=== PATIENT | female | born 1945 ===

== ENCOUNTER 2021-02-07 10:03 | Outpatient (REF) | payer MEDICARE, MEDICAID, SELFPAY ==
--- NOTE | ~2021-02-07 | XR_ITS ---
EXAMINATION: XR HIP, LEFT CLINICAL INFORMATION: Pain COMPARISON: None TECHNIQUE: Two views of the left hip. FINDINGS: Bones and soft tissues are normal. No fracture. Alignment is anatomic. Hip joint space is maintained. XR/XR hip LT min 2V IMPRESSION: Normal left hip.
== END 2021-02-07 10:04 | disposition home or self-care (01) ==
LOC: HO.XRAY 10:03
PROVIDERS: PCP Internal Medicine; Visit Provider Internal Medicine
DX: M25.552 Pain in left hip (principal)
CPT/HCPCS: 73502

== ENCOUNTER → 2021-03-27 15:48 | Outpatient (BNVA) | payer MEDICARE, MEDICAID, SELFPAY | PROVIDERS: PCP Internal Medicine; Visit Provider Surgery Vascular Surgery | DX: I83.11 Varicose veins of right lower extremity with inflammation (principal) | CPT/HCPCS: 99202 ==

== ENCOUNTER 2021-05-15 13:06 | Outpatient (REF) | payer MEDICARE, MEDICAID, SELFPAY ==
--- NOTE | ~2021-05-15 | US_ITS ---
EXAMINATION: BILATERAL LOWER EXTREMITY VENOUS ULTRASOUND (Reflux Exam) CLINICAL INDICATION: Varicose veins of unspecified lower extremity with inflammation. COMPARISON: None. TECHNIQUE: Color flow triplex imaging and compression Doppler was performed to evaluate both the deep and the superficial systems bilaterally. To evaluate the superficial system, the examination was performed in the upright position. Color-flow Doppler ultrasound and compression ultrasound were utilized. In addition, maneuvers were utilized to demonstrate reflux. FINDINGS: SUPERFICIAL ULTRASOUND WITH DOPPLER OF RIGHT LOWER EXTREMITY GREAT SAPHENOUS VEIN: Saphenofemoral junction: 0.3 cm Max diameter: 0.3 cm Min diameter: 0.1cm Reflux: There is segmental reflux above the knee measuring 0.6 cm. DUPLICATED MEDIAL GREAT SAPHENOUS VEIN: Max Diameter: None Imaged Reflux: NA DUPLICATED LATERAL GREAT SAPHENOUS VEIN: Diameter: None Imaged Reflux: NA SMALL SAPHENOUS VEIN: Proximal Calf: 0.2 cm Distal Calf: 0.1 cm Reflux: No evidence of reflux. VEIN OF GIACOMINI: None Imaged. PERFORATORS: Location: Mid thigh measuring 1 mm Reflux: None VARICOSITIES: Location: Proximal calf measuring 2 mm Reflux: 0.7 seconds of reflux DEEP VENOUS ULTRASOUND OF THE RIGHT LOWER EXTREMITY: Common Femoral Vein: Compressible, normal respiratory variation and augmented flow. Femoral vein: Compressible, normal color flow and augmentation. Popliteal Vein: Compressible, normal augmentation. Deep Reflux: There is no evidence of reflux in the deep system in either the common femoral vein or the popliteal vein. Goodman's Cyst: There is no evidence of a Goodman's cyst. SUPERFICIAL ULTRASOUND WITH DOPPLER OF LEFT LOWER EXTREMITY GREAT SAPHENOUS VEIN: Saphenofemoral junction: 0.3 cm Max diameter: 0.3 cm Min diameter: 0.1 cm Reflux: No evidence of reflux DUPLICATED MEDIAL GREAT SAPHENOUS VEIN: Max Diameter: None Imaged Reflux: NA DUPLICATED LATERAL GREAT SAPHENOUS VEIN: Diameter: None Imaged Reflux: NA SMALL SAPHENOUS VEIN: Proximal Calf: 0.1 cm Distal Calf: 0.1 cm Reflux: No evidence of reflux VEIN OF GIACOMINI: None Imaged. PERFORATORS: Location: None Imaged Reflux: NA VARICOSITIES: Location: None Imaged Reflux: NA DEEP VENOUS ULTRASOUND OF THE LEFT LOWER EXTREMITY: Common Femoral Vein: Compressible, normal respiratory variation and augmented flow. Femoral vein: Compressible, normal color flow and augmentation. Popliteal Vein: Compressible, normal augmentation. Deep Reflux: There is no evidence of reflux in the deep system in either the common femoral vein or the popliteal vein. Goodman's Cyst: There is no evidence of a Goodman's cyst. Additional: Prominent bilateral groin lymph nodes are identified. US/US venous duplex LE BI IMPRESSION: 1. Segmental reflux within the right great saphenous vein above the knee. 2. No evidence of left great saphenous venous insufficiency. 3. Refluxing, 2 mm varicosity within the right proximal calf. 4. No evidence of DVT or deep venous insufficiency. 5. Prominent bilateral inguinal lymph nodes.
== END 2021-05-15 13:07 | disposition home or self-care (01) ==
LOC: HO.US 13:06
PROVIDERS: Visit Provider Surgery Vascular Surgery
DX: I83.11 Varicose veins of right lower extremity with inflammation (principal)
CPT/HCPCS: 93970

== ENCOUNTER → 2021-06-05 15:05 | Outpatient (BNVA) | payer MEDICARE, MEDICAID, SELFPAY | PROVIDERS: PCP Internal Medicine; Visit Provider Surgery Vascular Surgery | DX: I83.11 Varicose veins of right lower extremity with inflammation (principal) | CPT/HCPCS: 99212 ==

== ENCOUNTER 2022-11-06 09:21 | Outpatient (REF) | payer MEDICARE, MEDICAID, SELFPAY ==
[2022-11-06 12:19] LABS: Estimated Average Glucose 189 mg/dL; Hemoglobin A1c % 8.2 % (<6.0)
== END 2022-11-06 09:22 | disposition home or self-care (01) ==
LOC: HO.HHCL 09:21
PROVIDERS: Visit Provider Registered Nurse
DX: E11.9 Type 2 diabetes mellitus without complications (principal)
CPT/HCPCS: 36415; 83036

== ENCOUNTER 2023-02-15 08:37 | Emergency (ER) | payer MEDICARE, MEDICAID, SELFPAY ==
--- NOTE | ~2023-02-15 | XR_ITS ---
EXAMINATION: XR CHEST CLINICAL INFORMATION: Cough. COMPARISON: Most recent chest radiographs dated 09/30/2017. TECHNIQUE: 2 views of the chest were obtained. FINDINGS: The lungs are clear. The cardiomediastinal silhouette is normal in size. There is no pleural effusion or pneumothorax. No acute osseous abnormality. XR/XR chest 2V IMPRESSION: No acute cardiopulmonary findings.
[2023-02-15 08:43] VITALS: BP 139/65; PULSE 112; RESP 22; TEMP 37.4; O2SAT 100; BMI 24.2
[2023-02-15 09:37] LABS: COVID-19 Test Negative (Negative); IDNOW Serial# 08D9AD1C; IDNOW Serial# BCCEAD1C; Influenza A Negative (Negative); Influenza B2 Negative (Negative)
--- NOTE | 2023-02-15 09:43 | ED.URI ---
HPI - URI/Sore Throat General Chief Complaint: Upper Respiratory Symptoms Stated Complaint: cold like symptoms Time Seen by Provider: 02/15/23 09:03 Source: patient and family Mode of arrival: ambulatory Limitations: language barrier ( [place]-speaking machine programmer utilized) History of Present Illness HPI Narrative: patient is a 77-year-old female who presents emergency department with her daughter for evaluation of symptoms. She reports 3 days with generalized weakness, chills, tactile fever, body aches. Intermittent dizziness described as feeling unsteady, productive cough, nausea and vomiting. She has had intermittent epigastric pain as well. Daughter states she has been unable to tolerate any oral intake for the past 2 days without vomiting. Denies genitourinary symptoms Related Data Home Medications Medication Instructions Recorded Confirmed amlodipine 5 mg tablet mg PO 03/27/21 atorvastatin 40 mg tablet mg PO 03/27/21 fluticasone propionate 50 intranasal 03/27/21 mcg/actuation nasal spray,suspension hydrochlorothiazide 25 mg tablet mg PO 03/27/21 insulin glargine 100 unit/mL (3 unit subcut 03/27/21 mL) subcutaneous pen (Lantus Solostar U-100 Insulin) lisinopril 30 mg tablet mg PO 03/27/21 metformin 1,000 mg tablet mg PO 03/27/21 omeprazole 20 mg capsule,delayed mg PO 03/27/21 release pen needle, diabetic 31 gauge x #1,200 ea 03/27/21 5/16 (UltiCare Pen Needle) Previous Rx's Medication Instructions Recorded melatonin 3 mg capsule 6 mg (2 x 3 mg) PO BEDTIME PRN 02/15/23 sleep #10 caps Allergies Allergy/AdvReac Type Severity Reaction Status Date / Time No Known Allergies Allergy Verified 02/15/23 08:45 [No Known Allergies*] Review of Systems Review of Systems: Yes all other systems are reviewed and are negative PMFSH Past Medical History Attestation statement: The following information was validated with the patient. Source: old records reviewed Medical History Varicose veins of bilateral lower extremities with pain Snoring Heart burn Varicose veins of legs Asymptomatic varicose veins of both lower extremities Right anterior knee pain Bilateral knee pain HTN (hypertension) Alcoholism Depression Diabetes mellitus type 2, uncomplicated Hyperlipemia Social History Social History Patient Tobacco Use Status: Current everyday Tobacco user Tobacco use type: Cigarette Cigarettes Per Day: 19 Advance Directives: No Advance Directives Information Provided: No Physical Exam Vital Signs: Vital Signs: Last Vital Signs Temp 99.1 F 02/15/23 10:29 Pulse 103 H 02/15/23 10:29 Resp 22 H 02/15/23 08:43 BP 139/65 02/15/23 08:43 Pulse Ox 100 02/15/23 08:43 O2 Del Method Room Air 02/15/23 08:43 BMI result Body Mass Index 24.2 Appearance: Alert.?Oriented to person, place and time. No acute distress.?Normal affect. Eyes: Pupils equal, round and reactive to light.? ENT: Pharynx normal.?? TM normal bilaterally Neck: Normal inspection.? Neck supple.?? no cervical lymphadenopathy CVS: Heart sounds normal. Normal heart rate and rhythm.? Pulses normal.?? Respiratory: No respiratory distress.? Lung sounds clear to auscultation bilaterally?? Abdomen: Soft and non-tender. Normoactive bowel sounds. ? Skin: Skin warm and dry.? Normal skin color.? Extremities: No lower extremity edema.? Neuro: Moves all extremities spontaneously. Sensation intact bilaterally. CN II-XII intact. No focal neuro deficits. Ambulates with normal steady gait. Course Reevaluation(s) Reevaluation #1: COVID- 19 and influenza testing are negative. CBC reveals a mild leukocytosis and normocytic anemia does not meet transfusion criteria. CMP is overall unremarkable. BNP not consistent with CHF. chest x-ray is without acute cardiopulmonary findings, no evidence of pneumonia. Urinalysis is without evidence of infection or microscopic hematuria. she received IV fluids in addition to Zofran and Tylenol __. Time: 11:16 Medications Administered Discontinued Medications Generic Name Dose Route Start Last Admin Trade Name Freq PRN Reason Stop Dose Admin Acetaminophen 975 mg 02/15/23 10:17 02/15/23 10:26 Acetaminophen 325 Mg Tablet PO 02/15/23 10:18 975 mg ONCE ONE Administration Sodium Chloride 1,000 mls @ 999 mls/hr 02/15/23 10:00 02/15/23 10:23 Ns IV 02/15/23 11:00 999 mls/hr .Q1H1M KENNETH Administration Ondansetron HCl 4 mg 02/15/23 09:53 02/15/23 10:21 Ondansetron Hcl 4 Mg/2 Ml Vial IVPUSH 02/15/23 09:54 4 mg ONCE ONE Administration Medical Decision Making Medical Decision Making [facility] Narrative: patient is a 77-year-old female with past medical history of hyperlipidemia, hypertension, type 2 diabetes who presents emergency department for evaluation of feeling generally unwell in addition to viral type symptoms with nausea vomiting and poor p.o. intake for the past 3 days. Overall she does appear fatigued, her abdominal examination is benign, LSCTA. She is able to speak clear full sentences. No hypoxia. She is mildly tachycardic at the time of my examination with pulse of 104 bpm, afebrile. Will obtain CBC to evaluate for leukocytosis/ anemia, CMP and lipase to evaluate for abnormal electrolytes /abnormal renal function/ abnormal hepatic/biliary function, Chest x-ray to evaluate for consolidation/ infiltrate/ mass/ pulmonary congestion and Urinalysis. Differential Diagnosis Differential Diagnoses: The differential diagnosis associated with the presentation includes ( Viral illness, UTI, cholecystitis, gastritis) Admission/Observation Consideration of admission/observation: Escalation of care including admission/observation considered ( see narrative above and course narrative for further detail) Lab Data [facility] Lab Attestation statement: I reviewed the patient's lab results. ( See course narrative) 02/15/23 10:13 02/15/23 10:13 Labs: Lab Results 02/15/23 02/15/23 Range/Units 09:10 10:13 WBC 13.5 H (4.8-10.8) X10*3/uL RBC 4.12 L (4.20-5.50) X10*6/uL Hgb 10.8 L (12.0-16.0) g/dl Hct 33.7 L (37.0-47.0) % MCV 81.8 (80.0-98.0) fL MCH 26.2 L (27.0-33.0) pg MCHC 32.0 (31.0-35.0) g/dl RDW 15.1 (11.0-16.0) % Plt Count 377 (160-400) X10*3/uL MPV 10.0 (9.4-12.3) fL Immature Gran % (Auto) 0.4 (0.0-0.4) % Neut % (Auto) 63.7 (45-73) % Lymph % (Auto) 23.4 (20-40) % [place] % (Auto) 11.4 H (2-11) % Eos % (Auto) 0.3 (0-4) % Baso % (Auto) 0.8 (0-2) % Lymph # (Auto) 3.2 (1.2-4.9) X10*3/uL [place] # (Auto) 1.5 H (0.1-1.2) X10*3/uL Eos # (Auto) 0.0 (0.0-0.4) X10*3/uL Baso # (Auto) 0.1 (0.0-0.2) X10*3/uL Abs Immat Gran (auto) 0.05 H (0.00-0.03) X10*3/uL Absolute Neuts (auto) 8.6 H (2.0-8.3) x10*3/uL Absolute Nucleated RBC 0.000 (0.0-0.012) X10*3/uL Nucleated RBC % (auto) 0.0 (0.0-0.2) /100WBC Smear Tech's Comments VERIFIED Sodium 140 (135-145) mmol/L Potassium 4.3 (3.3-5.1) mmol/L Chloride 106 (96-108) mmol/L Carbon Dioxide 26 (22-29) mmol/L Anion Gap 12 (12-20) BUN 18 H (9-16) mg/dL Creatinine 0.99 (0.5-1.4) mg/dL Estim Creat Clear Calc 36.9 Estimated GFR 55 Random Glucose 154 H (60-115) mg/dL Calcium 9.3 (8.4-10.2) mg/dL Total Bilirubin 0.3 (0.0-1.0) mg/dL AST 15 (5-31) U/L ALT 17 (0-31) U/L Alkaline Phosphatase 65 (39-117) U/L B-Natriuretic Peptide 107 H (<100) pg/mL Total Protein 7.1 (6.5-8.0) g/dL Albumin 3.8 (3.5-5.0) g/dL Lipase 13 (8-78) U/L Urine Color Yellow Urine Appearance Clear Urine pH 6.5 (5.0-9.0) Ur Specific [place] >= 1.030 H (1.005-1.025) Urine Protein Negative (Neg-Trace) mg/dL Urine Glucose (UA) >=1000 H (Negative) mg/dL Urine Ketones Negative (Negative) mg/dL Urine Blood Negative (Negative) Urine Nitrite Negative (Negative) Ur Leukocyte Esterase Negative (Negative) Urine RBC 0-2 (0-2) /HPF Urine WBC 0-5 (0-5) /HPF Ur Squamous Epith Cells 0-2 (0-2) /HPF Urine Bacteria None Seen (None Seen) Hyaline Casts 0-2 (0-2) /LPF COVID-19 (JONATHAN) Negative (Negative) COVID-19 Clin Com See Note Influenza Type A (ANITA) Negative (Negative) Influenza Type B (ANITA) Negative (Negative) Influenza A & B Note See Note Independent Interpretation I performed an independent interpretation of an: Plain X-Ray ( I personally interpreted chest x-ray and agree with radiologist impression.) Radiology Impression Discussion of test interpretation with radiology: I have reviewed the radiologist's reading. Radiologist Impression: XR/XR chest 2V IMPRESSION: No acute cardiopulmonary findings. Independent Historian Clinical information obtained from an independent historian. History obtained from or confirmed by: Other ( Daughter present who confirms history) External Record Review External record reviewed: Outpatient record Chronic Conditions Patient?s care impacted by: Diabetes Discharge Plan Discharge Clinical Impression: Upper respiratory infection Patient Disposition: Home, Self-Care Instructions: Upper Respiratory Infection (ED) Additional Instructions: urine does not show any sign of infection, blood work is overall normal. You can trial melatonin for sleep. Be sure to rest, stay well hydrated drinking plenty of fluids, eat small frequent meals. Tylenol/ibuprofen can be used as needed for fever/pain. Ejgv-anb-malegrl cold medications may be helpful as well for symptoms. Saline nasal spray, humidifier may be helpful for nasal congestion. You may return to the emergency department with any new or worsening symptoms or concerns. Follow-up with your primary care provider as needed. Should remain out of school/ work until symptoms have resolved and have been without a fever for 24 hours without the use of Tylenol or ibuprofen. Prescriptions: New melatonin 3 mg capsule 6 mg PO BEDTIME PRN (Reason: sleep) Qty: 10 0RF No Action (DME) pen needle, diabetic [UltiCare Pen Needle] 31 gauge x 5/16 needle See Rx Instructions .ROUTE .MEDSUPPLY Qty: 1200 Rx Instructions: As directed fluticasone propionate 50 mcg/actuation spray,suspension intranasal metformin 1,000 mg tablet PO hydrochlorothiazide 25 mg tablet PO omeprazole 20 mg capsule,delayed release(DR/EC) PO lisinopril 30 mg tablet PO atorvastatin 40 mg tablet PO amlodipine 5 mg tablet PO Lantus Solostar U-100 Insulin 100 unit/mL (3 mL) insulin pen subcut Referrals: Socorro Wilhelm, FILTERING MACHINE TENDER HELPER [Primary Care Provider] -
[2023-02-15 10:19] LABS: Basophils Absolute Auto 0.1 X10*3/uL (0.0-0.2); Basophils Percent Auto 0.8 % (0-2); Eosinophils Percent Auto 0.3 % (0-4); Hematocrit 33.7 % (37.0-47.0); Hemoglobin 10.8 g/dl (12.0-16.0); Imm Gran Abs Auto 0.05 X10*3/uL (0.00-0.03); Imm Gran Pct Auto 0.4 % (0.0-0.4); Lymphocytes Absolute Auto 3.2 X10*3/uL (1.2-4.9); Lymphocytes Percent Auto 23.4 % (20-40); Mean Corpuscular Hemoglobin 26.2 pg (27.0-33.0); Mean Corpuscular Volume 81.8 fL (80.0-98.0); Monocytes Absolute Auto 1.5 X10*3/uL (0.1-1.2); Monocytes Percent Auto 11.4 % (2-11); Neutrophils Absolute Auto 8.6 x10*3/uL (2.0-8.3); Neutrophils Percent Auto 63.7 % (45-73); Platelet Count 377 X10*3/uL (160-400); Red Blood Count 4.12 X10*6/uL (4.20-5.50); Red Cell Distribution Width 15.1 % (11.0-16.0); SCAN SMEAR FLAG 1; White Blood Count 13.5 X10*3/uL (4.8-10.8)
[2023-02-15 10:20] LABS: MANUAL DIFF FLAG SCAN
[2023-02-15 10:21] LABS: Appearance Urine Clear; Color Urine Yellow; Glucose Urine UA >=1000 mg/dL (Negative); Leukocyte Esterase Urine Negative (Negative); Nitrite Urine Negative (Negative); PH 6.5 (5.0-9.0); Specific Gravity - Urine >= 1.030 (1.005-1.025); UMIC TRIGGER UACC YES; Urine Blood Negative (Negative); Urine Ketones Negative (Negative); Urine Protein Negative (Neg-Trace)
[2023-02-15] MEDS: ondansetron HCL 4 MG/2 ML VIAL IVPUSH (10:21)
[2023-02-15] MEDS: 0.9 % Sodium Chloride 1,000 ML 999 ML IV (10:23)
[2023-02-15 10:26] LABS: Bacteria Urine None Seen (None Seen); Hyaline Casts Urine 0-2 /LPF (0-2); RBC Urine 0-2 /HPF (0-2); Squamous Epithelial Cell Urine 0-2 /HPF (0-2); WBC Urine 0-5 /HPF (0-5)
[2023-02-15] MEDS: Acetaminophen 325 MG TABLET 975 MG PO (10:26)
[2023-02-15 10:29] VITALS: PULSE 103; TEMP 37.3
[2023-02-15 10:39] LABS: SLIDE REVIEW VERIFIED
[2023-02-15 10:40] LABS: Alanine Aminotransferase 17 U/L (0-31); Albumin Level 3.8 g/dL (3.5-5.0); Alkaline Phosphatase 65 U/L (39-117); Anion Gap 12 (12-20); Aspartate Amino Transferase 15 U/L (5-31); Bilirubin Total 0.3 mg/dL (0.0-1.0); Blood Urea Nitrogen 18 mg/dL (9-16); Calcium 9.3 mg/dL (8.4-10.2); Carbon Dioxide 26 mmol/L (22-29); Chloride 106 mmol/L (96-108); Creatinine Clr Calc Pharmacy 36.9; Estimated Glomerular Filt Rate 55; Glucose Random 154 mg/dL (60-115); Lipase 13 U/L (8-78); Potassium 4.3 mmol/L (3.3-5.1); Sodium 140 mmol/L (135-145); Total Protein 7.1 g/dL (6.5-8.0)
[2023-02-15 10:46] LABS: B Type Natriuretic Peptide 107 pg/mL (<100)
[2023-02-15 11:36] VITALS: BP 100/58; PULSE 75; RESP 16; TEMP 37.3; O2SAT 98
== END 2023-02-15 11:38 | disposition home or self-care (01) ==
PROVIDERS: Nurse Practitioner Family; Emergency Provider Emergency Medicine; PCP Registered Nurse
DX: J06.9 Acute upper respiratory infection, unspecified (principal); R05.9 Cough, unspecified; R06.02 Shortness of breath; Z79.899 Other long term (current) drug therapy; Z11.52 Encounter for screening for COVID-19; Z20.822 Contact with and (suspected) exposure to COVID-19
CPT/HCPCS: 36415; 71046; 80053; 81001; 83690; 83880; 85025; 87502; 87635; 96361; 96374; 99284; 99285; J2405

== ENCOUNTER 2023-03-23 20:00 | Emergency (ER) | payer MEDICARE, SELFPAY ==
[2023-03-23 20:14] VITALS: BP 126/60; PULSE 109; RESP 18; TEMP 36.4; O2SAT 99; BMI 21.4
== END 2023-03-23 23:02 | disposition left against medical advice (07) ==
PROVIDERS: Emergency Provider Emergency Medicine
DX: R11.2 Nausea with vomiting, unspecified (principal)
CPT/HCPCS: 99281

== ENCOUNTER 2023-04-21 11:15 | Outpatient (REF) | payer MEDICARE, SELFPAY ==
[2023-04-21 14:24] LABS: MANUAL DIFF FLAG NO
[2023-04-21 14:36] LABS: Basophils Absolute Auto 0.1 X10*3/uL (0.0-0.2); Basophils Percent Auto 1.6 % (0-2); Eosinophils Absolute Auto 0.2 X10*3/uL (0.0-0.4); Eosinophils Percent Auto 1.7 % (0-4); Hematocrit 37.7 % (37.0-47.0); Hemoglobin 11.3 g/dl (12.0-16.0); Imm Gran Abs Auto 0.03 X10*3/uL (0.00-0.03); Imm Gran Pct Auto 0.3 % (0.0-0.4); Lymphocytes Absolute Auto 2.9 X10*3/uL (1.2-4.9); Lymphocytes Percent Auto 33.2 % (20-40); Mean Corpuscular Hemoglobin 23.8 pg (27.0-33.0); Mean Corpuscular Volume 79.5 fL (80.0-98.0); Mean Platelet Volume 10.9 fL (9.4-12.3); Monocytes Absolute Auto 0.8 X10*3/uL (0.1-1.2); Monocytes Percent Auto 9.5 % (2-11); Neutrophils Absolute Auto 4.7 x10*3/uL (2.0-8.3); Neutrophils Percent Auto 53.7 % (45-73); Platelet Count 398 X10*3/uL (160-400); Red Blood Count 4.74 X10*6/uL (4.20-5.50); Red Cell Distribution Width 15.6 % (11.0-16.0); White Blood Count 8.7 X10*3/uL (4.8-10.8)
[2023-04-21 15:45] LABS: Alanine Aminotransferase 17 U/L (0-31); Albumin Level 3.8 g/dL (3.5-5.0); Alkaline Phosphatase 65 U/L (39-117); Anion Gap 19 (12-20); Aspartate Amino Transferase 15 U/L (5-31); Bilirubin Total 0.3 mg/dL (0.0-1.0); Blood Urea Nitrogen 17 mg/dL (9-16); Calcium 9.5 mg/dL (8.4-10.2); Carbon Dioxide 23 mmol/L (22-29); Chloride 101 mmol/L (96-108); Estimated Glomerular Filt Rate 47; Glucose Random 306 mg/dL (60-115); Iron 26 mcg/dL (30-160); Percent Iron Saturation 8 % (15-50); Potassium 4.2 mmol/L (3.3-5.1); Sodium 139 mmol/L (135-145); Total Iron Binding Capacity 320 mcg/dL (228-428); Total Protein 6.9 g/dL (6.5-8.0); Unsaturated Iron Binding 294 ug/dL
[2023-04-21 15:59] LABS: Vitamin B12 > 2000 pg/mL (200-900)
[2023-04-21 16:01] LABS: TSH reflex Free T4 0.81 uIU/mL (0.32-4.0); Vitamin D 25-OH Total 45.8 ng/mL (>30)
[2023-04-21 17:52] LABS: Appearance Urine Clear; Color Urine Yellow; Glucose Urine UA >=1000 mg/dL (Negative); Leukocyte Esterase Urine Negative (Negative); Nitrite Urine Negative (Negative); PH 5.5 (5.0-9.0); Specific Gravity - Urine >= 1.030 (1.005-1.025); UMIC TRIGGER UACC YES; Urine Blood Negative (Negative); Urine Ketones 15 mg/dL (Negative); Urine Protein Negative (Neg-Trace)
[2023-04-21 17:57] LABS: Bacteria Urine 1+ (None Seen); Hyaline Casts Urine 0-2 /LPF (0-2); RBC Urine 0-2 /HPF (0-2); WBC Urine 0-5 /HPF (0-5)
== END 2023-04-21 11:16 | disposition home or self-care (01) ==
LOC: HO.CHCLDS 11:15
PROVIDERS: Visit Provider Registered Nurse
DX: R41.3 Other amnesia (principal); E11.9 Type 2 diabetes mellitus without complications; R31.21 Asymptomatic microscopic hematuria; Z79.4 Long term (current) use of insulin
CPT/HCPCS: 36415; 80053; 81001; 82306; 82607; 83540; 84443; 85025

== ENCOUNTER 2023-06-14 10:36 | Outpatient (REF) | payer OTHER, SELFPAY | END 2023-06-14 10:37 | disposition home or self-care (01) | LOC: HO.MAMMO 10:36 | PROVIDERS: PCP Registered Nurse; Visit Provider Registered Nurse | DX: Z12.31 Encounter for screening mammogram for malignant neoplasm of breast (principal) | CPT/HCPCS: 77063; 77067 ==

== ENCOUNTER → 2023-06-14 10:45 | Outpatient (BNV) | payer OTHER, SELFPAY | PROVIDERS: PCP Registered Nurse; Visit Provider Radiology Diagnostic Radiology | DX: Z12.31 Encounter for screening mammogram for malignant neoplasm of breast (principal) | CPT/HCPCS: 77063; 77067 ==

== ENCOUNTER → 2023-07-08 14:36 | Outpatient (BNVA) | payer OTHER, SELFPAY | PROVIDERS: PCP Registered Nurse; Visit Provider Surgery Vascular Surgery ==

== ENCOUNTER 2023-07-17 12:31 | Outpatient (AMB) | payer OTHER, SELFPAY ==
--- NOTE | 2023-07-17 12:58 | A.OFFVIS_ITS ---
Vital Signs 07/17/23 13:05 Height 4 ft 11 in Weight 120 lb BMI 24.2 Intake Visit Reasons: follow up VV discuss Micro Intake Note: follow up bilateral LE VV w/ itching, burning, pins and needles. Pt states that Left LE is slightly worse than the left due to hx of rupture. Was seen last 06/05/21 was advised to get a microphlebectomy at that time and wanted to hold off. States the VV have worsened severely since that time. Accompanied by: Daughter Allergies No Known Allergies [No Known Allergies*] Allergy (Verified 07/17/23 13:09) HPI HPI follow up VV discuss Micro: Details: Pleasant 77-year-old female presents for evaluation regarding her lower extremities. She would actually seen us back in May of 2021 for venous disease. At that time she held off on microphlebectomy. She is complaining of pain over her lower extremities. Upon further discussion with her she reports that she smokes a half a pack per day and is a diabetic. She also notes that she can barely walk a half a block in her calf start to hurt her. She now presents to us for vascular evaluation. [facility] Medical History Varicose veins of bilateral lower extremities with pain Snoring Heart burn Varicose veins of legs Asymptomatic varicose veins of both lower extremities Right anterior knee pain Bilateral knee pain HTN (hypertension) Alcoholism Depression Diabetes mellitus type 2, uncomplicated Hyperlipemia Social History Patient Tobacco Use Status: Current everyday Tobacco user Tobacco use type: Cigarette Cigarettes Per Day: 19 Review of Systems Const All systems reviewed & are unremarkable except as noted in HPI and below Reports no additional complaints ENT Reports Normal hearing present Card Denies chest pain, Denies chest pain at rest, Denies chest pain with activity and Denies pedal edema Resp Denies cough GI Denies abdominal pain Musc Denies abnormal gait, Denies muscle cramps and Denies radiating pain into limb Skin/Breast Denies skin ulcer and Denies wounds Neuro Reports Normal hearing present and Denies abnormal gait Psych Reports no additional complaints Physical Exam Vital Signs: BMI result Body Mass Index 24.2 Const General: cooperative, healthy appearing and comfortable Orientation/consciousness: oriented to person, oriented to place and oriented to time HEENT Head: Yes normal to inspection Neck Neck: Yes normal visual inspection Carotids: no bruits Chest Chest palpation & inspection: normal inspection of the chest Resp Effort & Inspection: normal respiratory effort and able to speak in complete se ntences Auscultation: clear to auscultation bilaterally, no crackles, no rales, no rhonchi and no wheezes Cardio Other: Bilateral DP signals Rate: regular rate Rhythm: regular rhythm Heart sounds: S1 normal heart sound present and S2 normal heart sound present Bruits: no carotid bruits Peripheral pulses: Peripheral pulses 2+ throughout GI Inspection: Yes normal to inspection Skin Other: Mild superficial varicosities Wounds: no wounds Hair: normal Neuro General: oriented to person, oriented to place and oriented to time Cranial nerves: Yes CN's II-XII intact bilaterally and Yes Normal hearing present Cognition (Neuro): normal cognition Motor exam (neuro): 5/5 motor strength present throughout Extrem Other: venous exam: No significant superficial varicosities or spider telangiectasias, minimal edema General: No clubbing, No cyanosis and No edema Psych Appearance: grossly normal Mental Status: mental status grossly normal Speech and movement: Normal speech and movement present Assessment & Plan Assessment & Plan (1) PAD (peripheral artery disease): Code(s): I73.9 - Peripheral vascular disease, unspecified Category: Medical Plan: In short I do believe she has an element of peripheral arterial disease. We did discuss risk factor modification including smoking cessation and control of her diabetes. I did discuss with hair the need for noninvasive arterial testing. She will follow up with us after testing. We will workup her venous disease after we assess her arterial status. (2) Varicose veins of right lower extremity with inflammation: Code(s): I83.11 - Varicose veins of right lower extremity with inflammation Category: Medical Plan: She does have some mild superficial varicosities. I will assess her arterial status before I reassess her venous status. Thank you for allowing us to assist in his care. Orders: Orders US arterial duplex LE BI 1 Week I73.9 - Peripheral vascular disease, unspecified Coding Level of Care Code Est Pt Level 4 (36228) Diagnoses PAD (peripheral artery disease) I73.9 Varicose veins of right lower extremity with inflammation I83.11
[2023-07-17 13:05] VITALS: BMI 24.2
== END 2023-07-17 13:52 | disposition home or self-care (01) ==
PROVIDERS: PCP Registered Nurse; Visit Provider Surgery Vascular Surgery
DX: I73.9 Peripheral vascular disease, unspecified (principal); I83.11 Varicose veins of right lower extremity with inflammation
CPT/HCPCS: 99213

== ENCOUNTER → 2023-07-17 12:31 | Outpatient (BNVA) | payer OTHER, SELFPAY | PROVIDERS: PCP Registered Nurse; Visit Provider Surgery Vascular Surgery | DX: I73.9 Peripheral vascular disease, unspecified (principal); I83.11 Varicose veins of right lower extremity with inflammation | CPT/HCPCS: 99212 ==

== ENCOUNTER 2023-07-17 16:10 | Outpatient (REF) | payer OTHER, SELFPAY ==
[2023-07-17 18:10] LABS: Influenza A PCR NEGATIVE (Negative); Influenza B PCR NEGATIVE (Negative); Resp Syncy Virus RNA Qual PCR NEGATIVE (Negative); SARS COV2 PCR INHOUSE NEGATIVE (Negative)
== END 2023-07-17 16:11 | disposition home or self-care (01) ==
LOC: HO.CHCLNP 16:10
PROVIDERS: Visit Provider Family Medicine
DX: R05.9 Cough, unspecified (principal)
CPT/HCPCS: 0241U

== ENCOUNTER 2023-07-24 14:08 | Outpatient (AMB) | payer OTHER, SELFPAY ==
[2023-07-24 14:10] VITALS: BP 129/73; PULSE 93; BMI 22.5
--- NOTE | 2023-07-24 14:10 | MHC.OFFVIS ---
Vital Signs 07/24/23 14:10 Height 4 ft 11 in Weight 111 lb 8.862 oz BMI 22.5 BP 129/73 Blood Pressure Location Lt brachial Position Sitting Pulse 93 Intake Visit Reasons: Dysphagia Intake Note: Patient in office today as a new patient for dysphagia and + cologuard. CC: Patient states that she sometimes has trouble swallowing food and her daughter states that she has to give her the food a little moist to make it easier to swallow. Grounds Maintenance Supervisor Required: Yes Grounds Maintenance Supervisor Name: daughter Accompanied by: Daughter Allergies No Known Allergies [No Known Allergies*] Allergy (Verified 07/24/23 14:22) HPI HPI Dysphagia: Details: 75-year-old female here for initial evaluation of dysphagia. She is referred by Natan Matthews MD of [facility]. PMX alcoholism - stopped 8 years ago Hypertension High cholesterol Diabetes Bilateral knee pain Varicose veins GERD * SURGICAL HISTORY C section cataract surgery Appendectomy * ALLERGIES: NKDA * [employer] LABS: Laboratory Tests 04/21/23 11:17 WBC 8.7 Hgb 11.3 L Hct 37.7 MCV 79.5 L MCH 23.8 L MCHC 30.0 L Plt Count 398 Estimated GFR 47 Total Bilirubin 0.3 AST 15 ALT 17 Alkaline Phosphatase 65 TSH 0.81 TODAY'S VISIT [place] #Dtr translates per pt request. She also recently had a Cologuard test via her PCP. She has never had colonoscopy. This has been for many years. She is having dysphagia of solid foods, trupti rice but sometimes with liquids too. She can not tell me if she chokes but her dtr observes her coughing. Her dtr works with Alzheimers pts and she thinks her mother had some signs of early dementia. No abd pain, no N/V, no CIC or diarrhea. Her father and sister had throat cancer and they were smokers - but the pt smokes too. Maybe a couple of lbs wt loss. Safe swallowing precautions reviewed and discussed. Her daughter is able to repeat verbalize understanding. There are no prior problems with anesthesia or sedation.. She likely has COPD r/t smoking and she has an inhaler. No cardiac problems No ID problems. ROV 8 weeks. [facility] Medical History (Updated 07/24/23 @ 15:00 by LIVE Quesada) Varicose veins of bilateral lower extremities with pain Snoring Heart burn Varicose veins of legs Asymptomatic varicose veins of both lower extremities Right anterior knee pain Bilateral knee pain HTN (hypertension) Alcoholism Depression Diabetes mellitus type 2, uncomplicated Hyperlipemia Surgical History (Updated 07/24/23 @ 16:31 by LIVE Quesada) Hx of cataract surgery History of appendectomy H/O section Family History (Updated 07/24/23 @ 14:29 by Annette Weeks CCM) Father Throat cancer Sister Throat cancer Social History (Updated 07/24/23 @ 14:29 by STEPHENIE Sullivan) Alcohol intake: former Patient Tobacco Use Status: Current everyday Tobacco user Tobacco use type: Cigarette Cigarettes Per Day: 19 Review of Systems Const Denies fatigue, Denies fever(s), Denies night sweats, Denies poor appetite and Reports weight loss ENT Reports Normal hearing present, Denies dental pain, Reports dysphagia, Denies hearing loss, Denies mouth pain, Denies odynophagia, Denies throat swelling, Denies tongue swelling and Reports other (Dentition adequate) Card Reports no additional complaints Resp Reports no additional complaints GI Details: Denies abdominal pain, Denies melena, Denies bloating, Denies hematochezia, Denies constipation, Denies GI cramping, Reports dysphagia, Denies excessive flatus, Denies early satiety, Denies heartburn, Denies diarrhea, Denies nausea, Denies odynophagia, Denies vomiting and Denies hematemesis Skin/Breast Denies pruritus, Denies lesions, Denies rash and Denies jaundice Neuro Reports Normal hearing present, Denies Abnormal speech present and Reports memory loss Psych Reports memory loss Endo Denies fatigue Aller/Immun Denies throat swelling and Denies tongue swelling Physical Exam Vital Signs: Last Vital Signs Pulse 93 07/24/23 14:10 BP 129/73 07/24/23 14:10 BMI result Body Mass Index 22.5 Const General: cooperative, no acute distress, well developed and well groomed Nutritional Appearance: average body habitus and well nourished Orientation/consciousness: oriented to person, oriented to place and oriented to time Limitations: language barrier and other limitations (Memory) HEENT Head: Yes normocephalic and Yes atraumatic Eyes General: appearance normal, both eyes and all related structures Pupils: Equal, round and reactive pupils present Neck Neck: Yes normal visual inspection and Yes no lymphadenopathy Thyroid: Thyroid normal Resp Effort & Inspection: normal respiratory effort and able to speak in complete sentences Auscultation: clear to auscultation bilaterally Cardio Rate: regular rate Rhythm: regular rhythm Heart sounds: Normal, physiologic split S2 sound present Peripheral pulses: radial pulses present and posterior tibial pulses present GI Inspection: No distended and No Abdominal panniculus present Palpation (GI): Soft to palpation, nontender, no guarding, not rigid and No hepatosplenomegaly present Percussion: Yes normal to percussion Auscultation: normal bowel sounds Rectal Exam - Female: deferred Skin General skin exam: no rashes or lesions noted, turgor normal, skin not dry, no jaundice, No spider nevi and no striae Rashes: no rashes Nails: normal Neuro General: oriented to person, oriented to place and oriented to time Cranial nerves: Yes Equal, round and reactive pupils present and Yes Normal hearing present Speech: No Abnormal speech present Extrem General: Yes normal to inspection, No clubbing, No cyanosis and No edema Psych Appearance: grossly normal and well kempt Mental Status: mental status grossly normal Speech and movement: Normal speech and movement present Affect: normal affect Attitude: cooperative Thought process: not confabulating and Loose association thought process present Thought content: Normal thought content present Insight: Limited insight present (Psych) Judgement: Limited judgement present (Psych) Results Reviewed Results Reviewed: Laboratory Tests 04/21/23 11:17 WBC 8.7 Hgb 11.3 L Hct 37.7 MCV 79.5 L MCH 23.8 L MCHC 30.0 L Plt Count 398 Estimated GFR 47 Total Bilirubin 0.3 AST 15 ALT 17 Alkaline Phosphatase 65 TSH 0.81 Assessment & Plan Assessment & Plan (1) Pre-op examination: Code(s): Z01.818 - Encounter for other preprocedural examination Category: Medical (2) Oropharyngeal dysphagia: Code(s): R13.12 - Dysphagia, oropharyngeal phase Category: Medical (3) COPD (chronic obstructive pulmonary disease): Code(s): J44.9 - Chronic obstructive pulmonary disease, unspecified Category: Medical Plan [place] #Dtr translates per pt request. She also recently had a Cologuard test via her PCP. She has never had colonoscopy. This has been for many years. She is having dysphagia of solid foods, trupti rice but sometimes with liquids too. She can not tell me if she chokes but her dtr observes her coughing. Her dtr works with Alzheimers pts and she thinks her mother had some signs of early dementia. No abd pain, no N/V, no CIC or diarrhea. Her father and sister had throat cancer and they were smokers - but the pt smokes too. Maybe a couple of lbs wt loss. Safe swallowing precautions reviewed and discussed. Her daughter is able to repeat verbalize understanding. There are no prior problems with anesthesia or sedation.. She likely has COPD r/t smoking and she has an inhaler. No cardiac problems No ID problems. ROV 8 weeks. Orders: Orders EGD with Curry - GI Use Only Today R13.12 - Dysphagia, oropharyngeal phase FL barium swallow modified Today R13.12 - Dysphagia, oropharyngeal phase Coding Level of Care Code New Pt Level 3 (56028) Diagnoses Pre-op examination Z01.818 Oropharyngeal dysphagia R13.12 COPD (chronic obstructive pulmonary disease) J44.9
== END 2023-07-24 15:03 | disposition home or self-care (01) ==
PROVIDERS: PCP Registered Nurse; Visit Provider Nurse Practitioner
DX: R13.12 Dysphagia, oropharyngeal phase (principal); R19.5 Other fecal abnormalities; J44.9 Chronic obstructive pulmonary disease, unspecified
CPT/HCPCS: 99203

== ENCOUNTER → 2023-07-24 14:08 | Outpatient (BNVA) | payer OTHER, SELFPAY | PROVIDERS: PCP Registered Nurse; Visit Provider Nurse Practitioner | DX: Z01.818 Encounter for other preprocedural examination (principal); J44.9 Chronic obstructive pulmonary disease, unspecified; R13.12 Dysphagia, oropharyngeal phase | CPT/HCPCS: 99202 ==

== ENCOUNTER 2023-07-30 13:14 | Outpatient (REF) | payer OTHER, SELFPAY ==
[2023-07-30 14:36] LABS: MANUAL DIFF FLAG NO
[2023-07-30 14:46] LABS: Basophils Absolute Auto 0.1 X10*3/uL (0.0-0.2); Basophils Percent Auto 1.3 % (0-2); Eosinophils Absolute Auto 0.6 X10*3/uL (0.0-0.4); Eosinophils Percent Auto 5.4 % (0-4); Hematocrit 37.2 % (37.0-47.0); Imm Gran Abs Auto 0.04 X10*3/uL (0.00-0.03); Imm Gran Pct Auto 0.4 % (0.0-0.4); Immature Retic Fraction 26.6 % (3.0-15.9); Lymphocytes Absolute Auto 3.6 X10*3/uL (1.2-4.9); Lymphocytes Percent Auto 33.5 % (20-40); Mean Corpuscular HGB Conc 29.6 g/dl (31.0-35.0); Mean Corpuscular Hemoglobin 22.3 pg (27.0-33.0); Mean Corpuscular Volume 75.5 fL (80.0-98.0); Mean Platelet Volume 10.2 fL (9.4-12.3); Monocytes Percent Auto 9.3 % (2-11); Neutrophils Absolute Auto 5.4 x10*3/uL (2.0-8.3); Neutrophils Percent Auto 50.1 % (45-73); Platelet Count 490 X10*3/uL (160-400); Red Blood Count 4.93 X10*6/uL (4.20-5.50); Red Cell Distribution Width 20.8 % (11.0-16.0); Retic HGB Equivalent 26.6 pg (30.0-35.0); Reticulocyte Percent 1.6 % (0.5-1.8); Reticulocytes Absolute 0.078 X10*6/uL (0.026-0.095); White Blood Count 10.8 X10*3/uL (4.8-10.8)
[2023-07-30 15:32] LABS: Iron 21 mcg/dL (30-160); Percent Iron Saturation 6 % (15-50); Total Iron Binding Capacity 355 mcg/dL (228-428); Unsaturated Iron Binding 334 ug/dL
[2023-07-30 15:53] LABS: Ferritin 8 ng/mL (10-250); Vitamin D 25-OH Total 57.7 ng/mL (>30)
[2023-07-30 15:56] LABS: Vitamin B12 1230 pg/mL (200-900)
[2023-08-03 03:59] LABS: Methylmalonic Acid 94 nmol/L (87-318)
== END 2023-07-30 13:15 | disposition home or self-care (01) ==
LOC: HO.CHCLDS 13:14
PROVIDERS: Visit Provider Registered Nurse
DX: D50.9 Iron deficiency anemia, unspecified (principal)
CPT/HCPCS: 36415; 82306; 82607; 82728; 82746; 83540; 83921; 85025; 85045

== ENCOUNTER 2023-08-07 10:19 | Outpatient (REF) | payer OTHER, SELFPAY ==
--- NOTE | ~2023-08-07 | US_ITS ---
EXAMINATION: NONINVASIVE ASSESSMENT OF THE ARTERIES OF BOTH LOWER EXTREMITIES WITH PVR EXAM AND BILATERAL LOWER EXTREMITY DUPLEX Peggy Napier MD CLINICAL INFORMATION: PVD TECHNIQUE: Ankle pulse volume recordings, ankle pressure measurements and ankle brachial indices were obtained of the lower extremity arterial system bilaterally in addition to duplex Doppler techniques with wave form analysis and measurement of velocities in the common femoral, profunda femoral, superficial femoral, popliteal and tibial arteries. The study was performed only at rest. COMPARISON: None FINDINGS: a) AT REST: RIGHT LE. The right ankle-brachial index is: 0.58 * >0.97-1.25 = normal - no significant arterial disease * 0.75-0.96 = mild peripheral arterial disease * 0.5-0.74 = moderate peripheral arterial disease * <0.50 = severe peripheral arterial disease 2. Right ankle pressure: abnormal. 3. Right ankle PVR waveform: abnormal. 4. Right direct duplex Doppler findings: Common femoral artery: 124 cm/s, Multiphasic Profunda femoris artery: 66 cm/s, Multiphasic Superficial femoral artery (proximal): 71 cm/s, monophasic Superficial femoral artery (mid): 53 cm/s, monophasic Superficial femoral artery (distal): 37 cm/s, monophasic Proximal Popliteal artery: 27 cm/s, monophasic Mid posterior tibial artery: 32 cm/s, monophasic LEFT LE. The left ankle-brachial index is: 0.92 * >0.97-1.25 = normal - no significant arterial disease * 0.75-0.96 = mild peripheral arterial disease * 0.5-0.74 = moderate peripheral arterial disease * <0.50 = severe peripheral arterial disease 2. Left ankle pressure: abnormal. 3. Left ankle PVR waveform: abnormal. 4. Left direct duplex Doppler findings: Common femoral artery: 91 cm/s, Multiphasic Profunda femoris artery: 131 cm/s, Multiphasic Superficial femoral artery (proximal): 154 cm/s, Multiphasic Superficial femoral artery (mid): 77 cm/s, Multiphasic Superficial femoral artery (distal): 45 cm/s, Multiphasic Proximal Popliteal artery: 53 cm/s, Multiphasic Mid posterior tibial artery: 22 cm/s, monophasic US/US VENICE complete IMPRESSION: RIGHT LEG: Moderate peripheral arterial disease and monophasic flow in the SFA and distally. LEFT LEG: Mild peripheral arterial disease.
--- NOTE | ~2023-08-07 | US_ITS ---
EXAMINATION: NONINVASIVE ASSESSMENT OF THE ARTERIES OF BOTH LOWER EXTREMITIES WITH PVR EXAM AND BILATERAL LOWER EXTREMITY DUPLEX Peggy Napier MD CLINICAL INFORMATION: PVD TECHNIQUE: Ankle pulse volume recordings, ankle pressure measurements and ankle brachial indices were obtained of the lower extremity arterial system bilaterally in addition to duplex Doppler techniques with wave form analysis and measurement of velocities in the common femoral, profunda femoral, superficial femoral, popliteal and tibial arteries. The study was performed only at rest. COMPARISON: None FINDINGS: a) AT REST: RIGHT LE. The right ankle-brachial index is: 0.58 * >0.97-1.25 = normal - no significant arterial disease * 0.75-0.96 = mild peripheral arterial disease * 0.5-0.74 = moderate peripheral arterial disease * <0.50 = severe peripheral arterial disease 2. Right ankle pressure: abnormal. 3. Right ankle PVR waveform: abnormal. 4. Right direct duplex Doppler findings: Common femoral artery: 124 cm/s, Multiphasic Profunda femoris artery: 66 cm/s, Multiphasic Superficial femoral artery (proximal): 71 cm/s, monophasic Superficial femoral artery (mid): 53 cm/s, monophasic Superficial femoral artery (distal): 37 cm/s, monophasic Proximal Popliteal artery: 27 cm/s, monophasic Mid posterior tibial artery: 32 cm/s, monophasic LEFT LE. The left ankle-brachial index is: 0.92 * >0.97-1.25 = normal - no significant arterial disease * 0.75-0.96 = mild peripheral arterial disease * 0.5-0.74 = moderate peripheral arterial disease * <0.50 = severe peripheral arterial disease 2. Left ankle pressure: abnormal. 3. Left ankle PVR waveform: abnormal. 4. Left direct duplex Doppler findings: Common femoral artery: 91 cm/s, Multiphasic Profunda femoris artery: 131 cm/s, Multiphasic Superficial femoral artery (proximal): 154 cm/s, Multiphasic Superficial femoral artery (mid): 77 cm/s, Multiphasic Superficial femoral artery (distal): 45 cm/s, Multiphasic Proximal Popliteal artery: 53 cm/s, Multiphasic Mid posterior tibial artery: 22 cm/s, monophasic US/US arterial duplex LE BI IMPRESSION: RIGHT LEG: Moderate peripheral arterial disease and monophasic flow in the SFA and distally. LEFT LEG: Mild peripheral arterial disease.
== END 2023-08-07 10:20 | disposition home or self-care (01) ==
LOC: HO.US 10:19
PROVIDERS: PCP Registered Nurse; Visit Provider Surgery Vascular Surgery
DX: I73.9 Peripheral vascular disease, unspecified (principal)
CPT/HCPCS: 93923; 93925

== ENCOUNTER 2023-09-15 05:42 | Inpatient (IN) | payer OTHER, SELFPAY ==
[2023-09-15] VITALS (10 sets, daily range): BP systolic 99–135; BP diastolic 51–67; PULSE 98–115; RESP 16–29; TEMP 36.4–36.7; O2SAT 93–100; BMI 31.6; BMI 29.8
--- NOTE | 2023-09-15 | ECG_ITS ---
Test Reason : SOB Blood Pressure : / mmHG Vent. Rate : 096 BPM Atrial Rate : 096 BPM P-R Int : 150 ms QRS Dur : 120 ms QT Int : 428 ms P-R-T Axes : 063 005 097 degrees QTc Int : 540 ms Normal sinus rhythm Low voltage QRS Left bundle branch block Prolonged QT Abnormal ECG When compared with ECG of 26-APR-2016 06:48, Left bundle branch block Present Referred By: Generic ED Physician Electronically Signed By:Ebenezer Hanson
--- NOTE | ~2023-09-15 | XR_ITS ---
EXAMINATION: XR CHEST CLINICAL INFORMATION: COPD. Shortness of breath. Cough. Rule out pneumonia. COMPARISON: Chest x-rays of 02/15/2023, 09/30/2017 TECHNIQUE: Frontal view of the chest was obtained. FINDINGS: The patient is rotated to the right. The cardiomediastinal silhouette is within normal limits. Multiple EKG leads and wires as well as external tubings overlie the chest. The lungs are mildly hyperinflated. Probable mild bronchial thickening. No focal consolidation, changes of overt pulmonary edema, pleural effusions or pneumothorax are seen. Visualized upper abdomen is unremarkable. XR/XR chest 1V IMPRESSION: No radiographic evidence of pneumonia or overt pulmonary edema. Probable mild bronchial thickening.
[2023-09-15 05:55] LABS: Glucose, Whole Blood 173 mg/dL (60-115)
--- NOTE | 2023-09-15 06:02 | ED.SOB ---
HPI - SOB/Dyspnea General Chief Complaint: Upper Respiratory Symptoms Stated Complaint: SOB Time Seen by Provider: 09/15/23 06:01 Source: patient and family (Daughter, Anila) Mode of arrival: ambulatory Limitations: no limitations History of Present Illness ED Provider: Dr. Tanner Emery HPI Narrative: 77-year-old female with a history of COPD, GERD, hypertension, alcohol use disorder, depression, diabetes mellitus, hyperlipidemia who presents emergency department for evaluation of shortness of breath. Information mainly comes from the patient's daughter. Daughter states the patient has been short of breath for proximally 1 week. She has been using her Spiriva, Incruse and albuterol nebulizer more frequently than usual. The patient was feeling short of breath all night. The patient was given an albuterol nebulizer prior to arrival but this did not improve her symptoms, therefore her daughter brought her to the emergency department for evaluation. The patient denied fever but states she did have chills. The patient has a cough which is chronic but productive. Patient had nausea and 2 episodes of vomiting. She had no diarrhea, myalgias arthralgias. Patient has a greater than 50 pack-year history of smoking. She states she stop smoking 1 week prior. The patient was scheduled for an endoscopy today. Related Data Home Medications ?Medication ?Instructions ?Recorded ?Confirmed amlodipine 5 mg tablet 5 mg PO DAILY 03/27/21 09/11/23 pen needle, diabetic 31 gauge x #1,200 ea 03/27/2107/02 (UltiCare Pen Needle) albuterol sulfate 90 mcg/actuation 1 inh inhalation Q4H PRN Shortness 07/24/23 09/11/23 aerosol inhaler (Ventolin HFA) Of Breath Or Wheezing atorvastatin 40 mg tablet 40 mg PO DAILY 07/24/23 09/11/23 cetirizine 10 mg tablet 10 mg PO DAILY 07/24/23 09/11/23 cholecalciferol (vitamin D3) 50 50 mcg PO DAILY 07/24/23 09/11/23 mcg (2,000 unit) tablet empagliflozin 25 mg tablet 25 mg PO DAILY 07/24/23 09/11/23 (Jardiance) gabapentin 100 mg capsule 100 mg PO BEDTIME 07/24/23 09/11/23 hydrochlorothiazide 25 mg tablet 25 mg PO DAILY 07/24/23 09/11/23 insulin glargine 100 unit/mL (3 5 unit subcut DAILY 07/24/23 09/11/23 mL) subcutaneous pen (Lantus Solostar U-100 Insulin) lisinopril 40 mg tablet 40 mg PO QAM 07/24/23 09/11/23 metformin 1,000 mg tablet 1,000 mg PO BID 07/24/23 09/11/23 nifedipine 30 mg tablet,extended 30 mg PO QAM 07/24/23 09/11/23 release 24 hr omeprazole 20 mg capsule,delayed 20 mg PO DAILY 07/24/23 09/11/23 release pantoprazole 40 mg tablet,delayed 40 mg PO DAILY 07/24/23 09/11/23 release tiotropium bromide 18 mcg capsule 1 cap inhalation DAILY 07/24/23 09/11/23 with inhalation device (Spiriva with HandiHaler) Previous Rx's ?Medication ?Instructions ?Recorded melatonin 3 mg capsule 6 mg (2 x 3 mg) PO BEDTIME PRN 02/15/23 sleep #10 caps Allergies Allergy/AdvReac Type Severity Reaction Status Date / Time No Known Allergies Allergy Verified 09/15/23 05:54 [No Known Allergies*] Review of Systems Review of Systems: Yes all other systems are reviewed and are negative [facility] Past Medical History [facility] Narrative: Social history: Patient lives at home with her daughter. She stopped smoking cigarettes 1 week prior but has greater than 50 pack-year history of smoking-she smokes 1 pack a day since she was 21 years old. She denies drug use. She denies alcohol use. Medical History (Updated 09/15/23 @ 07:08 by Tanner Emery MD) COPD (chronic obstructive pulmonary disease) Snoring Heart burn Varicose veins of legs Asymptomatic varicose veins of both lower extremities Right anterior knee pain Bilateral knee pain HTN (hypertension) Alcoholism Depression Diabetes mellitus type 2, uncomplicated Hyperlipemia Surgical History (Updated 07/24/23 @ 16:31 by LIVE Quesada) Hx of cataract surgery History of appendectomy H/O section Family History Family History (Updated 07/24/23 @ 14:29 by STEPHENIE Sullivan) Father Throat cancer Sister Throat cancer Social History Social History (Updated 07/24/23 @ 14:29 by STEPHENIE Sullivan) Alcohol intake: former Patient Tobacco Use Status: Current everyday Tobacco user Tobacco use type: Cigarette Cigarettes Per Day: 19 Smoked in Last 30 Days: Yes Use of substances other than those prescribed or required for medical reasons: No Advance Directives: No Advance Directives Information Provided: Yes Do you have a plan to hurt others: No Plan Physical Exam Vital Signs: Vital Signs: Last Vital Signs Temp 97.9 F 09/15/23 05:48 Pulse 102 H 09/15/23 06:19 Resp 22 H 09/15/23 06:19 BP 99/67 09/15/23 05:48 Pulse Ox 95 09/15/23 06:05 O2 Del Method Room Air 09/15/23 06:05 BMI result Body Mass Index 31.6 Vital signs revealed an elevated respiratory rate of 24 and elevated heart rate of 111 Exam: General: Awake, alert, appears dyspneic Head: Normocephalic, atraumatic EENT: PERRL, Lids normal, sclera normal, conjunctiva normal, nose normal , ears normal, throat without erythema or exudates Neck: Supple, no adenopathy Lung: Diminished breath sounds bilaterally, diffuse wheezing, rales at bases Chest: symmetric movement, nontender Heart: Tachycardia with a regular rhythm, normal S1, S2 no murmurs or rubs Abdomen: soft, non-tender, nondistended, normal bowel sounds Back: no vertebral tenderness, no CVAT Extremities: no deformities, moves all extremities symmetrically Neuro: Awake, alert, oriented, normal speech, cranial nerves intact, moves all extremities symmetrically Psych: Pleasant, cooperative Medications Administered Discontinued Medications Generic Name Dose Route Start Last Admin Trade Name Trevonq PRN Reason Stop Dose Admin Albuterol Sulfate 5 mg/ 0 mg 09/15/23 06:18 09/15/23 06:19 Albuterol/Ipratropium 3 ml INHALE 09/15/23 06:19 1 each ONCE ONE Administration Methylprednisolone Sodium Succinate 125 mg 09/15/23 06:14 09/15/23 06:20 Methylprednisolone Sod Succ 125 Mg/2 Ml Vial IVPUSH 09/15/23 06:15 125 mg ONCE ONE Administration Medical Decision Making Medical Decision Making MDM Narrative: 77-year-old female with a history of COPD, GERD, hypertension, alcohol use disorder, depression, diabetes mellitus, hyperlipidemia who presents emergency department for evaluation of shortness of breath x1 week, worse last night. The patient had no fever but did have chills. Patient has a chronic productive cough. Patient was been using her inhaler and nebulizer more frequently over the past week and received a nebulizer treatment prior to coming to emergency department with no improvement of her symptoms. Vital signs did reveal an elevated heart rate and elevated respiratory rate. On exam the patient does appear to be dyspneic, lung exam revealed diminished breath sounds bilaterally with diffuse wheezing and rales at the bases. Differential diagnosis: ?Includes but is not limited to pneumonia, bronchitis, COPD exacerbation, congestive heart failure, anemia, electrolyte abnormalities Following evaluation was ordered: CBC, CMP, troponin, BNP, lactic acid, VBG, PT/INR, PTT, EKG, chest x-ray one view Patient was initially treated with the following:Bronchodilator protocol-albuterol 7.5 mg with ipratropium 0.5 mg nebulizer, Solu-Medrol 125 mg IV Course: 06:41 My interpretation patient's laboratory evaluation is as follows: WBC elevated 12,500, H&H was normal. Platelet count elevated 460,000. Coags were normal. Glucose elevated 201. BNP elevated 121. Venous blood gas and COVID-19, influenza and RSV are pending. Chest x-ray on my interpretation was COPD changes with no acute infiltrates, radiology reading is pending My impression is that the patient has bronchitis which is caused a flare-up of her chronic lung disease. Patient will be treated with ceftriaxone and azithromycin IV. I will discuss admission with the covering hospitalist. Lab Data 09/15/23 06:02 09/15/23 06:02 Labs: Lab Results 09/15/23 09/15/23 09/15/23 Range/Units 05:49 06:02 06:18 WBC 12.5 H (4.8-10.8) X10*3/uL RBC 5.30 (4.20-5.50) X10*6/uL Hgb 12.4 (12.0-16.0) g/dl Hct 40.2 (37.0-47.0) % MCV 75.8 L (80.0-98.0) fL MCH 23.4 L (27.0-33.0) pg MCHC 30.8 L (31.0-35.0) g/dl RDW 21.3 H (11.0-16.0) % Plt Count 460 H (160-400) X10*3/uL MPV 10.0 (9.4-12.3) fL Immature Gran % (Auto) 0.2 (0.0-0.4) % Neut % (Auto) 46.2 (45-73) % Lymph % (Auto) 34.0 (20-40) % [place] % (Auto) 9.0 (2-11) % Eos % (Auto) 8.8 H (0-4) % Baso % (Auto) 1.8 (0-2) % Lymph # (Auto) 4.2 (1.2-4.9) X10*3/uL [place] # (Auto) 1.1 (0.1-1.2) X10*3/uL Eos # (Auto) 1.1 H (0.0-0.4) X10*3/uL Baso # (Auto) 0.2 (0.0-0.2) X10*3/uL Abs Immat Gran (auto) 0.03 (0.00-0.03) X10*3/uL Absolute Neuts (auto) 5.8 (2.0-8.3) x10*3/uL Absolute Nucleated RBC 0.000 (0.0-0.012) X10*3/uL Nucleated RBC % (auto) 0.0 (0.0-0.2) /100WBC PT 10.5 L (11.1-13.3) SEC INR 0.9 (0.9-1.1) APTT 30.9 (26.0-36.8) SEC Hold Blue Top SEE NOTE Sodium 142 (135-145) mmol/L Potassium 4.2 (3.3-5.1) mmol/L Chloride 104 (96-108) mmol/L Carbon Dioxide 24 (22-29) mmol/L Anion Gap 18 (12-20) BUN 16 (9-16) mg/dL Creatinine 1.09 (0.5-1.4) mg/dL Estim Creat Clear Calc 25.3 Estimated GFR 49 POC Glucose 173 H (60-115) mg/dL Random Glucose 201 H (60-115) mg/dL Lactic Acid 1.6 (0.5-2.0) mmol/L Calcium 10.3 H D (8.4-10.2) mg/dL Total Bilirubin 0.3 (0.0-1.0) mg/dL AST 12 (5-31) U/L ALT 16 (0-31) U/L Alkaline Phosphatase 67 (39-117) U/L Troponin I High Sens 3.5 (<3.5-17.0) ng/L B-Natriuretic Peptide 121 H (<100) pg/mL Total Protein 7.7 (6.5-8.0) g/dL Albumin 4.4 (3.5-5.0) g/dL Independent Interpretation I performed an independent interpretation of an: EKG Interpretation: My interpretation patient's 12 EKG is as follows: Normal sinus rhythm rate of 96, normal MN interval, prolonged QRS interval 218 milliseconds, prolonged QTC of 540 milliseconds, no ST segment elevation, no ST segment depression, Q-waves noted in leads 3 and V3 with poor R-wave progression V1 through V3. Compared to EKG dated April 26 2016 Q-wave in 3 was old, poor R-wave progression Q-wave in V3 is new. Discharge Plan Discharge Prescriptions: No Action melatonin 3 mg capsule 6 mg PO BEDTIME PRN (Reason: sleep) Qty: 10 0RF (DME) pen needle, diabetic [UltiCare Pen Needle] 31 gauge x 5/16 needle See Rx Instructions .ROUTE .MEDSUPPLY Qty: 1200 Rx Instructions: As directed amlodipine 5 mg tablet 5 mg PO DAILY atorvastatin 40 mg tablet 40 mg PO DAILY hydrochlorothiazide 25 mg tablet 25 mg PO DAILY Lantus Solostar U-100 Insulin 100 unit/mL (3 mL) insulin pen 5 unit subcut DAILY Rx Instructions: Per sliding scale metformin 1,000 mg tablet 1,000 mg PO BID omeprazole 20 mg capsule,delayed release(DR/EC) 20 mg PO DAILY tiotropium bromide [Spiriva with HandiHaler] 18 mcg capsule, w/inhalation device 1 cap inhalation DAILY pantoprazole 40 mg tablet,delayed release (DR/EC) 40 mg PO DAILY cetirizine 10 mg tablet 10 mg PO DAILY cholecalciferol (vitamin D3) 50 mcg (2,000 unit) tablet 50 mcg PO DAILY albuterol sulfate [Ventolin HFA] 90 mcg/actuation HFA aerosol inhaler 1 inh inhalation Q4H PRN (Reason: Shortness Of Breath Or Wheezing) Jardiance 25 mg tablet 25 mg PO DAILY lisinopril 40 mg tablet 40 mg PO QAM gabapentin 100 mg capsule 100 mg PO BEDTIME nifedipine 30 mg tablet extended release 24hr 30 mg PO QAM Print Language: Telugu
[2023-09-15 06:10] LABS: MANUAL DIFF FLAG NO
[2023-09-15 06:12] LABS: Basophils Absolute Auto 0.2 X10*3/uL (0.0-0.2); Basophils Percent Auto 1.8 % (0-2); Eosinophils Absolute Auto 1.1 X10*3/uL (0.0-0.4); Eosinophils Percent Auto 8.8 % (0-4); Hematocrit 40.2 % (37.0-47.0); Hemoglobin 12.4 g/dl (12.0-16.0); Imm Gran Abs Auto 0.03 X10*3/uL (0.00-0.03); Imm Gran Pct Auto 0.2 % (0.0-0.4); Lymphocytes Absolute Auto 4.2 X10*3/uL (1.2-4.9); Mean Corpuscular HGB Conc 30.8 g/dl (31.0-35.0); Mean Corpuscular Hemoglobin 23.4 pg (27.0-33.0); Mean Corpuscular Volume 75.8 fL (80.0-98.0); Monocytes Absolute Auto 1.1 X10*3/uL (0.1-1.2); Neutrophils Absolute Auto 5.8 x10*3/uL (2.0-8.3); Neutrophils Percent Auto 46.2 % (45-73); Platelet Count 460 X10*3/uL (160-400); Red Cell Distribution Width 21.3 % (11.0-16.0); White Blood Count 12.5 X10*3/uL (4.8-10.8)
[2023-09-15] MEDS: Albuterol Sulfate 5 MG, Albuterol/Iprat 2.5/0.5MG 3 ML 3 ML INHALE (06:19)
[2023-09-15] MEDS: methylPREDNISolone Sod Succ 125 MG/2 ML VIAL IVPUSH (06:20)
[2023-09-15 06:27] LABS: Alanine Aminotransferase 16 U/L (0-31); Albumin Level 4.4 g/dL (3.5-5.0); Alkaline Phosphatase 67 U/L (39-117); Anion Gap 18 (12-20); Aspartate Amino Transferase 12 U/L (5-31); Bilirubin Total 0.3 mg/dL (0.0-1.0); Blood Urea Nitrogen 16 mg/dL (9-16); Calcium 10.3 mg/dL (8.4-10.2); Carbon Dioxide 24 mmol/L (22-29); Chloride 104 mmol/L (96-108); Creatinine Clr Calc Pharmacy 25.3; Estimated Glomerular Filt Rate 49; Glucose Random 201 mg/dL (60-115); Potassium 4.2 mmol/L (3.3-5.1); Sodium 142 mmol/L (135-145); Total Protein 7.7 g/dL (6.5-8.0)
[2023-09-15 06:32] LABS: Troponin-I High Sensitivity 3.5 ng/L (<3.5-17.0)
[2023-09-15 06:33] LABS: B Type Natriuretic Peptide 121 pg/mL (<100)
[2023-09-15 06:34] LABS: INTERNATIONAL NORM RATIO 0.9 (0.9-1.1); Prothrombin Time 10.5 SEC (11.1-13.3)
[2023-09-15 06:37] LABS: Partial Thromboplastin Time 30.9 SEC (26.0-36.8)
[2023-09-15 06:39] LABS: Lactic Acid 1.6 mmol/L (0.5-2.0)
[2023-09-15 07:01] LABS: Influenza A PCR NEGATIVE (Negative); Influenza B PCR NEGATIVE (Negative); Resp Syncy Virus RNA Qual PCR NEGATIVE (Negative); SARS COV2 PCR INHOUSE NEGATIVE (Negative)
--- NOTE | 2023-09-15 07:03 | PC.NURSE ---
report given to Marnie GARCIA, all questions answered
[2023-09-15 07:04] LABS: Venous Blood Gas Refer to POC result
[2023-09-15 07:05] LABS: VBG Base Excess 0.2 mmol/L; VBG HCO3 26 mmol/L (22-26); VBG pCO2 47 mmHg; VBG pH 7.35 (7.32-7.43); VBG pO2 42 mmHg
[2023-09-15] MEDS: cefTRIAXone sodium 1 GM in 0.9 % Sodium Chloride 50 ML IV (07:44)
[2023-09-15 08:22] LABS: Procalcitonin 0.02 ng/mL
[2023-09-15] MEDS: Azithromycin 500 MG in 0.9 % Sodium Chloride 250 ML 125 MG IV (08:23)
[2023-09-15 09:05] LABS: Glucose, Whole Blood 288 mg/dL (60-115)
--- NOTE | 2023-09-15 09:29 | PHA.MEDREC ---
Pharmacy Consult ? Medication Reconciliation Pharmacy has completed the medication reconciliation.Spoke to Patients daughter to confirm med list. Daughter had a bed box list and inhalers with her. Daughter states patient takes Trulicity 0.75 mg q Friday , last dose was 09-08-23, Ferrous Gluconate mg 324 Friday and Friday, last dose 09-12-23, Vitamin b-12 1000 mcg Friday and . Patients daughter states Patients is on both Spiriva handinhaler 1 ampule daily and Incruse Elipta 1 puff daily..
--- NOTE | 2023-09-15 09:35 | PM.IMHP ---
History of Present Illness Date of Service: 09/15/23 Attending physician on admission: Renetta Kwon Chief Complaint: sob ,cough 77 y/o f with Pmhx COPD, GERD, hypertension, alcohol use disorder, depression, diabetes mellitus, hyperlipidemia who came for evaluation of shortness of breath x1 week, worse last night. Patient has a chronic productive cough worse x 1 day.No fever but did have chills,used inhaler and nebulizer more frequently over the past week and received a nebulizer treatment with no improvement of her symptoms.in addition has cough with whitish sputum, elevated heart rate and elevated respiratory rate, dyspneic, lung exam revealed diminished breath sounds bilaterally with diffuse wheezing and rales at the bases, has leucocytosis ,lactic acid normal,patient was given nebs,steriods-improved after 7.5 mg albuterol and 0.5 mg ipratropium nebulizer, Solu-Medrol 125 mg IV. Chest x-ray consistent with COPD changes. WBC elevated 12,500 otherwise labs unremarkable,treated with ceftriaxone and azithromycin for bronchitis. Patient denies any travel, but daughter says she also had similar symptoms? Lab imaging EKG reviewed: Leukocytosis on CBC BMP seems fine except mild elevated calcium 10.3 borderline Lactic acid normal Chest x-ray grossly okay except mild bronchial thickening Troponin x1 negative EKG seems nsr Denies any new complaint of chest pain or abdominal pain or fever or nausea or vomiting or any weakness or numbness. Review of Systems Review of Systems: As above. Yes all other systems are reviewed and are negative [facility] Medical History COPD (chronic obstructive pulmonary disease) Snoring Heart burn Varicose veins of legs Asymptomatic varicose veins of both lower extremities Right anterior knee pain Bilateral knee pain HTN (hypertension) Alcoholism Depression Diabetes mellitus type 2, uncomplicated Hyperlipemia Family History Father Throat cancer Sister Throat cancer Surgical History Hx of cataract surgery History of appendectomy H/O section Social History Alcohol intake: former Patient Tobacco Use Status: Current everyday Tobacco user Tobacco use type: Cigarette Cigarettes Per Day: 19 Smoked in Last 30 Days: Yes Use of substances other than those prescribed or required for medical reasons: No Advance Directives: No Advance Directives Information Provided: Yes Do you have a plan to hurt others: No Plan Meds Allergies Allergy/AdvReac Type Severity Reaction Status Date / Time No Known Allergies Allergy Verified 09/15/23 05:54 [No Known Allergies*] Active Medications: Current Medications Acetaminophen (Acetaminophen 325 Mg Tablet) 650 mg PO Q6H PRN PRN Reason: Pain, Mild (Pain Scale 1-3), fever or headache Calcium Carbonate (Calcium Carbonate 750 Mg Tab.Chew) 750 mg PO Q4H PRN PRN Reason: Heartburn Levalbuterol HCl 1.25 mg/ (Ipratropium Floyd 0.5 mg) 0 mg INHALE PROTOCOL BOLUS KENNETH Magnesium Hydroxide (Milk Of Magnesia 30 Ml Oral.Susp) 30 ml PO DAILY PRN PRN Reason: Constipation Melatonin (Melatonin 3 Mg Tablet) 6 mg PO BEDTIME PRN PRN Reason: Insomnia Methylprednisolone Sodium Succinate (Methylprednisolone Sod Succ 40 Mg/Ml Vial) 40 mg IVPUSH BID KENNETH Pantoprazole Sodium (Pantoprazole Sodium 40 Mg/10 Ml Vial) 40 mg IVPUSH BID KENNETH Sodium Chloride (0.9 % Sodium Chloride Flush 3 Ml Syringe) 3 ml IVFLUSH QSHIFT [facility] Home Medications ?Medication ?Instructions ?Recorded ?Confirmed ?Last Taken ?Type pen needle, diabetic 31 gauge x #1,200 ea 03/27/21 Unknown History 07/02 (UltiCare Pen Needle) albuterol sulfate 90 mcg/actuation 1 inh inhalation Q4H PRN Shortness 07/24/23 09/15/23 Unknown History aerosol inhaler (Ventolin HFA) Of Breath Or Wheezing atorvastatin 40 mg tablet 40 mg PO BEDTIME 07/24/23 09/15/23 09/14/23 History cholecalciferol (vitamin D3) 50 50 mcg PO DAILY 07/24/23 09/15/23 09/14/23 History mcg (2,000 unit) tablet empagliflozin 25 mg tablet 25 mg PO DAILY 07/24/23 09/15/23 09/14/23 History (Jardiance) gabapentin 100 mg capsule 100 mg PO BEDTIME 07/24/23 09/15/23 09/14/23 History hydrochlorothiazide 25 mg tablet 25 mg PO DAILY 07/24/23 09/15/23 09/14/23 History lisinopril 40 mg tablet 40 mg PO DAILY 07/24/23 09/15/23 09/14/23 History metformin 1,000 mg tablet 1,000 mg PO BID 07/24/23 09/15/23 09/14/23 History nifedipine 30 mg tablet,extended 30 mg PO DAILY 07/24/23 09/15/23 09/14/23 History release 24 hr omeprazole 20 mg capsule,delayed 20 mg PO DAILY@0630 07/24/23 09/15/23 09/14/23 History release cyanocobalamin (vitamin B-12) 1,000 mcg PO MOTH 09/15/23 09/15/23 09/11/23 History 1,000 mcg tablet docusate sodium 100 mg capsule 100 mg PO DAILY PRN Constipation 09/15/23 09/15/23 Unknown History dulaglutide 0.75 mg/0.5 mL 0.75 mg subcut MO 09/15/23 09/15/23 09/08/23 History subcutaneous pen injector (Trulicity) ferrous gluconate 324 mg (37.5 mg 324 mg PO MOWEFR 09/15/23 09/15/23 09/12/23 History iron) tablet insulin glargine 100 unit/mL (3 5 unit subcut DAILY 09/15/23 09/15/23 09/14/23 History mL) subcutaneous pen (Lantus Solostar U-100 Insulin) tiotropium bromide 18 mcg capsule 1 cap inhalation DAILY 09/15/23 09/15/23 09/14/23 History with inhalation device (Spiriva with HandiHaler) umeclidinium 62.5 mcg/actuation 1 inh inhalation DAILY 09/15/23 09/15/23 09/14/23 History blister powder for inhalation (Incruse Ellipta) Physical Exam Vital Signs and Narrative: Vital Signs: Last Vital Signs Temp 97.9 F 09/15/23 05:48 Pulse 105 H 09/15/23 08:23 Resp 29 H 09/15/23 08:23 BP 111/51 L 09/15/23 07:40 Pulse Ox 93 09/15/23 08:23 O2 Del Method Room Air 09/15/23 08:23 BMI result Body Mass Index 31.6 Appearance: Alert.? Oriented X3.? not in distress.? Eyes: Pupils equal, round and reactive to light.? Sclera nonicteric.? ENT: Pharynx normal.? Moist mucous membranes. cvs: rrr, [id number] . res: air entry diminshed ,has b/l wheezing abd: no rebound or guarding ,nt, bs present. ext pulses present , no cyanosis neuro: axo3 , nonfocal. Results Labs 09/15/23 06:02 09/15/23 06:02 Labs: Laboratory Results - last 24 hr 09/15/23 09/15/23 09/15/23 05:49 06:02 06:10 MCV 75.8 L MCH 23.4 L MCHC 30.8 L RDW 21.3 H Plt Count 460 H MPV 10.0 Immature Gran % (Auto) 0.2 Neut % (Auto) 46.2 Lymph % (Auto) 34.0 [place] % (Auto) 9.0 Eos % (Auto) 8.8 H Baso % (Auto) 1.8 Lymph # (Auto) 4.2 [place] # (Auto) 1.1 Eos # (Auto) 1.1 H Baso # (Auto) 0.2 Abs Immat Gran (auto) 0.03 Absolute Neuts (auto) 5.8 Absolute Nucleated RBC 0.000 Nucleated RBC % (auto) 0.0 PT 10.5 L INR 0.9 APTT 30.9 Hold Blue Top SEE NOTE VBG pH VBG pCO2 VBG pO2 VBG HCO3 VBG O2 Saturation VBG Base Excess Anion Gap 18 Estim Creat Clear Calc 25.3 Estimated GFR 49 POC Glucose 173 H Random Glucose 201 H Lactic Acid Calcium 10.3 H D Total Bilirubin 0.3 AST 12 ALT 16 Alkaline Phosphatase 67 Troponin I High Sens 3.5 B-Natriuretic Peptide 121 H Total Protein 7.7 Albumin 4.4 Procalcitonin 0.02 Influenza Type A (PCR) NEGATIVE Influenza Type B (PCR) NEGATIVE RSV RNA Qual (PCR) NEGATIVE SARS-CoV-2 RNA (RT-PCR) NEGATIVE 09/15/23 09/15/23 09/15/23 06:18 06:56 09:00 MCV MCH MCHC RDW Plt Count MPV Immature Gran % (Auto) Neut % (Auto) Lymph % (Auto) [place] % (Auto) Eos % (Auto) Baso % (Auto) Lymph # (Auto) [place] # (Auto) Eos # (Auto) Baso # (Auto) Abs Immat Gran (auto) Absolute Neuts (auto) Absolute Nucleated RBC Nucleated RBC % (auto) PT INR APTT Hold Blue Top VBG pH 7.35 VBG pCO2 47 VBG pO2 42 VBG HCO3 26 VBG O2 Saturation 61.0 VBG Base Excess 0.2 Anion Gap Estim Creat Clear Calc Estimated GFR POC Glucose 288 H Random Glucose Lactic Acid 1.6 Calcium Total Bilirubin AST ALT Alkaline Phosphatase Troponin I High Sens B-Natriuretic Peptide Total Protein Albumin Procalcitonin Influenza Type A (PCR) Influenza Type B (PCR) RSV RNA Qual (PCR) SARS-CoV-2 RNA (RT-PCR) Imaging Radiologist's Impressions: Impressions Chest X-Ray 09/15/23 06:34 IMPRESSION: No radiographic evidence of pneumonia or overt pulmonary edema. Probable mild bronchial thickening. Assessment and Plan (1) COPD (chronic obstructive pulmonary disease): Qualifiers: COPD type: COPD with acute exacerbation Qualified Code(s): J44.1 - Chronic obstructive pulmonary disease with (acute) exacerbation Status: Acute (2) Acute bronchitis: Qualifiers: Bronchitis organism: unspecified organism Qualified Code(s): J20.9 - Acute bronchitis, unspecified Status: Acute (3) Sepsis: Status: Acute Plan 77 y/o f with Pmhx COPD, GERD, hypertension, alcohol use disorder, depression, diabetes mellitus, hyperlipidemia who came for evaluation of shortness of breath x1 week, worse last night. Acute COPD exacerbation: Given nebulizers treatments in the ED patient is still feeling short of breath with minimal activity Chest x-ray shows question of acute bronchitis Patient is started on nebs, steroids, antibiotics. Loratadine and cough syrup. Patient meets sepsis criteria: Tachycardia, tachypnea, leukocytosis Lactic acid level normal Possible sepsis secondary to COPD exacerbation/acute bronchitis. Diabetes: Diabetic diet Will add home medications once med reconciliation done. Hypotension Will add home medications once med reconciliation done. Hyperlipidemia Will add home medications once med reconciliation done. Depression Will add home medications once med reconciliation done. Obesity: Encouraged to cut down calories and encouraged for weight loss. DVT prophylaxis: SCD since patient supposed to have EGD+ cologuard(please see Gi note from 07/24/23) , patient was supposed to get EGD procedure today but before that she was having short of breath as above so did not go to the GI clinic rather than came to the ED for COPD management . Above management discussed with the patient and her daughter in detail length they both understand and in agreement with the above plan, time spent 70 minute, patient is DNR DNI. Quality Stroke Does the patient have a stroke diagnosis?: No VTE Prior VTE?: No VTE Risk Level:: Medical - moderate - high VTE Device Contraindication: N/A - Device Ordered VTE Drug Contraindication: N/A - Med Ordered
[2023-09-15] MEDS: Pantoprazole Sodium 40 MG/10 ML VIAL IVPUSH ×2 (11:12→22:12)
--- NOTE | 2023-09-15 11:19 | PC.NURSE ---
called daughter, Anila, to bring in pts Trulicity
[2023-09-15 11:33] LABS: Adenovirus PCR Not Detected (Not Detect.); Bordetella parapertussis PCR Not Detected (Not Detect.); Bordetella pertussis PCR Not Detected (Not Detect.); Chlamydia pneumoniae PCR Not Detected (Not Detect.); Coronavirus 229E PCR Not Detected (Not Detect.); Coronavirus HKU1 PCR Not Detected (Not Detect.); Coronavirus NL63 PCR Not Detected (Not Detect.); Coronavirus OC43 PCR Not Detected (Not Detect.); Human metapneumovirus PCR Not Detected (Not Detect.); Influenza A PCR Not Detected (Not Detect.); Influenza B PCR Not Detected (Not Detect.); Mycoplasma pneumoniae PCR Not Detected (Not Detect.); Parainfluenza 1 PCR Not Detected (Not Detect.); Parainfluenza 2 PCR Not Detected (Not Detect.); Parainfluenza 3 PCR Not Detected (Not Detect.); Parainfluenza 4 PCR Not Detected (Not Detect.); RSV PCR Not Detected (Not Detect.); Rhino/Enterovirus PCR Not Detected (Not Detect.)
--- NOTE | 2023-09-15 12:15 | P.CDIM_ITS ---
PROVIDER RESPONSE TEXT: To clarify, the appropriate diagnosis supported by the clinical indicators: Diabetes mellitus with hyperglycemia QUERY TEXT: PHYSICIAN'S DOCUMENTATION REQUEST Date of Query: 09/15/2023 11:24 AM EDT Patient Name: Sara Tripathi Admit Date: 09/15/2023 Dear Renetta Kwon MD, A review of the medical record indicates additional documentation may be needed. Please review below and update the documentation accordingly. Clinical Indicators: LABS: POC glucose 288 H DM Diabetic diet/Insulin Please clarify the following regarding the Complications of Diabetes Mellitus (DM): Diabetes mellitus with hyperglycemia Other (explain) Clinically unable to determine (explain) Thank you, Sandra eJwell, CCS, CDIS Use of terms such as suspected, likely, concern for, or probable (associated with a specific diagnosi s that is being evaluated, monitored, or treated as if it exists) are acceptable and can be coded in the inpatient se tting, when documented at the time of discharge. Please use your independent medical judgment in providing your response. THIS QUERY IS PART OF THE PERMANENT MEDICAL RECORD
[2023-09-15] MEDS: Cyanocobalamin (Vitamin B-12) 1,000 MCG TABLET 1000 MCG PO (12:56)
[2023-09-15] MEDS: Ferrous Sulfate 324 MG TABLET.DR PO (12:56)
[2023-09-15 13:13] LABS: SARS-CoV-2 PCR Not Detected (Not Detect.)
[2023-09-15] MEDS: levalbuterol HCL 1.25 MG, Ipratropium Bromide 0.5 MG INHALE ×2 (14:09→20:25)
[2023-09-15 14:57] LABS: Glucose, Whole Blood 555 mg/dL (60-115)
--- NOTE | 2023-09-15 15:01 | PC.NURSE ---
informed MD mcbride of pts POC 555 - awaiting orders
--- NOTE | 2023-09-15 15:16 | PC.NURSE ---
plan to recheck POC - if still elevated plan to give 16 u lispro along with 5 units lantus
[2023-09-15 15:22] LABS: Glucose, Whole Blood 532 mg/dL (60-115)
[2023-09-15] MEDS: 0.9 % Sodium Chloride Flush 3 ML SYRINGE IVFLUSH ×2 (15:32→22:13)
[2023-09-15] MEDS: Insulin Lispro 100 UNIT/ML 3 ML VIAL SUBCUT ×2 (15:32→20:26)
[2023-09-15] MEDS: Insulin Lispro 100 UNIT/ML 3 ML VIAL 6 UNIT SUBCUT (15:33)
[2023-09-15] MEDS: Insulin Glargine,Hum.rec.anlog 100 UNIT/ML 10 ML VIAL SUBCUT (15:33)
[2023-09-15] MEDS: 0.9 % Sodium Chloride 1,000 ML 100 ML IVCONT (15:35)
[2023-09-15] MEDS: guaiFENesin 200 MG/10 ML 10 ML LIQUID PO ×2 (15:40→22:28)
[2023-09-15] MEDS: Acetaminophen 325 MG TABLET 650 MG PO (15:40)
[2023-09-15 19:30] LABS: Glucose, Whole Blood 408 mg/dL (60-115)
[2023-09-15] MEDS: methylPREDNISolone Sod Succ 40 MG/ML VIAL IVPUSH (22:12)
[2023-09-15] MEDS: Melatonin 3 MG TABLET 6 MG PO (22:13)
[2023-09-15] MEDS: Atorvastatin Calcium 40 MG TABLET PO (22:13)
[2023-09-15] MEDS: Gabapentin 100 MG CAPSULE PO (22:13)
[2023-09-16] VITALS (11 sets, daily range): BP systolic 102–134; BP diastolic 54–67; PULSE 91–115; RESP 18–20; TEMP 36.1–36.9; O2SAT 94–96
[2023-09-16 00:31] LABS: Glucose, Whole Blood 293 mg/dL (60-115)
[2023-09-16 03:01] LABS: Glucose, Whole Blood 306 mg/dL (60-115)
[2023-09-16] MEDS: 0.9 % Sodium Chloride 1,000 ML 100 ML IVCONT ×2 (05:56→23:36)
[2023-09-16] MEDS: Omeprazole 20 MG CAPSULE.DR PO (06:00)
[2023-09-16] MEDS: guaiFENesin 200 MG/10 ML 10 ML LIQUID PO (06:00)
[2023-09-16 06:03] LABS: Glucose, Whole Blood 465 mg/dL (60-115)
[2023-09-16] MEDS: Insulin Regular, Human 100 UNIT/ML 10 ML VIAL IVPUSH (07:50)
[2023-09-16] MEDS: Insulin Glargine,Hum.rec.anlog 100 UNIT/ML 10 ML VIAL SUBCUT (08:16)
[2023-09-16] MEDS: cefTRIAXone sodium 1 GM in 0.9 % Sodium Chloride 50 ML IV (08:17)
[2023-09-16] MEDS: Pantoprazole Sodium 40 MG/10 ML VIAL IVPUSH ×2 (08:17→21:27)
[2023-09-16] MEDS: lisinopriL 40 MG TABLET PO (08:19)
[2023-09-16] MEDS: NIFEdipine ER 30 MG TAB.ER.24 PO (08:19)
[2023-09-16] MEDS: Loratadine 10 MG TABLET PO (08:19)
[2023-09-16] MEDS: Cholecalciferol (Vitamin D3) 25 MCG TABLET 50 MCG PO (08:19)
[2023-09-16] MEDS: Empagliflozin 25 MG TABLET PO (08:19)
[2023-09-16] MEDS: levalbuterol HCL 1.25 MG, Ipratropium Bromide 0.5 MG INHALE ×4 (08:21→19:53)
[2023-09-16] MEDS: 0.9 % Sodium Chloride Flush 3 ML SYRINGE IVFLUSH ×2 (08:21→23:38)
[2023-09-16 08:48] LABS: Glucose, Whole Blood 292 mg/dL (60-115)
[2023-09-16] MEDS: Insulin Lispro 100 UNIT/ML 3 ML VIAL SUBCUT ×2 (09:45→12:52)
--- NOTE | 2023-09-16 10:19 | MHC.CLN ---
RE: CONSULT PT REPORTS DIFFICULTY SWALLOWING RECOMMEND REFER TO ELECTRIC MOTORMAN FOR EVAL OF SWALLOWING AND APPROPRIATE DIET CONSISTENCY
--- NOTE | 2023-09-16 11:33 | MHC.CM.PN ---
IMM 09/16/23, Pt. is SSO, she lives with her dtr., she has a nurse that visits once a week, arranged by ANTHONY. She uses a walker and is waiting for a smaller one to be able to manage with it in the home. Dtr will be HCP, form to be completed here and added to chart. Dtr will transport home at DC. DCP plan, is home with services. CM to follow and assist with DC plan.
[2023-09-16 11:52] LABS: Glucose, Whole Blood 364 mg/dL (60-115)
--- NOTE | 2023-09-16 13:47 | HO.PM.IMPN ---
Subjective Subjective Date of Service: 09/16/23 Interval History: f/u on Copd excacerbation, has been having hyperglycemia presently without any respiratory symptoms Physical Exam Vital Signs: Vital Signs: Last Vital Signs Temp 97.0 F 09/16/23 11:06 Pulse 115 H 09/16/23 11:30 Resp 20 09/16/23 11:30 BP 110/54 L 09/16/23 11:06 Pulse Ox 96 09/16/23 11:06 O2 Del Method Room Air 09/16/23 11:06 BMI result Body Mass Index 29.8 General: AO X 3, no acute distress Resp: CTA bilateral CVS: S1,S2,RRR GI: +BS, NT, no distention Skin: No rash Neuro: motor grossly intact Psych: appropriate affect Objective Data Active Medications Acetaminophen (Acetaminophen 325 Mg Tablet) 650 mg PO Q6H PRN PRN Reason: Pain, Mild (Pain Scale 1-3), fever or headache Last Admin: 09/15/23 15:40 Dose: 650 mg Documented By: EMILIANO Atorvastatin Calcium (Atorvastatin Calcium 40 Mg Tablet) 40 mg PO BEDTIME [facility] Last Admin: 09/15/23 22:13 Dose: 40 mg Documented By: LAURA Calcium Carbonate (Calcium Carbonate 750 Mg Tab.Chew) 750 mg PO Q4H PRN PRN Reason: Heartburn Levalbuterol HCl 1.25 mg/ (Ipratropium [place] 0.5 mg) 0 mg INHALE RQ4H WHILE AWAKE [facility] Last Admin: 09/16/23 11:28 Dose: 2.5 dose Documented By: KENDRA Levalbuterol HCl 1.25 mg/ (Ipratropium [place] 0.5 mg) 0 mg INHALE Q3H PRN PRN Reason: sob Last Admin: 09/15/23 14:09 Dose: 1 dose Documented By: FERMIN Cyanocobalamin (Cyanocobalamin (Vitamin B-12) 1,000 Mcg Tablet) 1,000 mcg PO MOTH [facility] Last Admin: 09/15/23 12:56 Dose: 1,000 mcg Documented By: EMILIANO Docusate Sodium (Docusate Sodium 100 Mg Capsule) 100 mg PO DAILY PRN PRN Reason: Constipation Empagliflozin (Empagliflozin 25 Mg Tablet) 25 mg PO DAILY [facility] Last Admin: 09/16/23 08:19 Dose: 25 mg Documented By: SEAN Ferrous Sulfate (Ferrous Sulfate 324 Mg Tablet.Dr) 324 mg PO MOWEFR [facility] Last Admin: 09/15/23 12:56 Dose: 324 mg Documented By: EMILIANO Gabapentin (Gabapentin 100 Mg Capsule) 100 mg PO BEDTIME [facility] Last Admin: 09/15/23 22:13 Dose: 100 mg Documented By: LAURA Glucose (Glucose Gel 15 Gm Gel..Gram.) 15 gm PO Q15M PRN; Protocol PRN Reason: per Hypoglycemia Standing Ord. Guaifenesin (Guaifenesin 200 Mg/10 Ml 10 Ml Liquid) 10 ml PO Q6H PRN PRN Reason: Cough Last Admin: 09/16/23 06:00 Dose: 10 ml Documented By: LAURA Ceftriaxone Sodium 1 gm/ (Sodium Chloride) 50 mls @ 100 mls/hr IV Q24H [facility] Last Infusion: 09/16/23 08:50 Dose: Infused Documented By: SEAN Dextrose (D10) 250 mls @ 750 mls/hr IV Q15M PRN; Protocol PRN Reason: per Hypoglycemia Standing Ord. Sodium Chloride (Ns) 1,000 mls @ 100 mls/hr IVCONT .Q10H [facility] Last Admin: 09/16/23 05:56 Dose: 100 mls/hr Documented By: LAURA Insulin Glargine (Insulin Glargine,Hum.Rec.Anlog 100 Unit/Ml 10 Ml Vial) 5 unit SUBCUT DAILY [facility] Last Admin: 09/16/23 08:16 Dose: 5 unit Documented By: SEAN Insulin Human Lispro (Insulin Lispro 100 Unit/Ml 3 Ml Vial) 0 unit SUBCUT QIDACHS [facility]; Protocol Last Admin: 09/16/23 12:52 Dose: 10 unit Documented By: SEAN Lisinopril (Lisinopril 40 Mg Tablet) 40 mg PO DAILY [facility]; Protocol Last Admin: 09/16/23 08:19 Dose: 40 mg Documented By: SEAN Loratadine (Loratadine 10 Mg Tablet) 10 mg PO DAILY [facility] Last Admin: 09/16/23 08:19 Dose: 10 mg Documented By: SEAN Magnesium Hydroxide (Milk Of Magnesia 30 Ml Oral.Susp) 30 ml PO DAILY PRN PRN Reason: Constipation Melatonin (Melatonin 3 Mg Tablet) 6 mg PO BEDTIME PRN PRN Reason: Insomnia Last Admin: 09/15/23 22:13 Dose: 6 mg Documented By: LAURA Melatonin (Melatonin 3 Mg Tablet) 6 mg PO BEDTIME PRN PRN Reason: sleep Nifedipine (Nifedipine Er 30 Mg Tab.Er.24) 30 mg PO DAILY [facility]; Protocol Last Admin: 09/16/23 08:19 Dose: 30 mg Documented By: SEAN Pt Own (Dulaglutide [Trulicity] 0.75 Mg/0.5 Ml Pen Injector) 0.75 mg SUBCUT MO [facility] Last Admin: 09/15/23 12:56 Dose: 0.75 mg Documented By: EMILIANO Omeprazole (Omeprazole 20 Mg Capsule.Dr) 20 mg PO DAILY@0630 [facility] Last Admin: 09/16/23 06:00 Dose: 20 mg Documented By: LAURA Pantoprazole Sodium (Pantoprazole Sodium 40 Mg/10 Ml Vial) 40 mg IVPUSH BID [facility] Last Admin: 09/16/23 08:17 Dose: 40 mg Documented By: SEAN Sodium Chloride (0.9 % Sodium Chloride Flush 3 Ml Syringe) 3 ml IVFLUSH QSHIFT [facility] Last Admin: 09/16/23 08:21 Dose: 3 ml Documented By: SEAN Vitamin D (Cholecalciferol (Vitamin D3) 25 Mcg Tablet) 50 mcg PO DAILY [facility] Last Admin: 09/16/23 08:19 Dose: 50 mcg Documented By: SEAN Labs 09/15/23 06:02 09/15/23 06:02 Labs: Laboratory Results - last 24 hr 09/15/23 09/15/23 09/15/23 14:54 15:18 19:26 POC Glucose 555 H* 532 H* 408 H* 09/16/23 09/16/23 09/16/23 00:27 02:56 05:58 POC Glucose 293 H 306 H 465 H* 09/16/23 09/16/23 08:44 11:48 POC Glucose 292 H 364 H* Microbiology Microbiology Results: Microbiology 09/15/23 06:18 Blood Culture - Preliminary Blood - Venous No growth after 24 hours. 09/15/23 06:18 Blood Culture - Preliminary Blood - Venous No growth after 24 hours. Assessment and Plan (1) Sepsis: Status: Acute (2) Acute bronchitis: Status: Acute (3) Acute bronchospasm: Status: Acute Plan 77 y/o f with Pmhx COPD, GERD, hypertension, alcohol use disorder, depression, diabetes mellitus, hyperlipidemia who came for evaluation of shortness of breath x1 week, worse last night. Acute COPD exacerbation, clinically improved, breathing comfortably on room air, continue nebs, avoid further steroid due to hyperglycemia, lungs clear cough meds, PRN Patient meets sepsis criteria: Tachycardia, tachypnea, leukocytosis Lactic acid level normal Possible sepsis secondary to COPD exacerbation/acute bronchitis. continue ceftriaxone Non insulin dependent diabetes with hyperglycemia.. worsened by steroid off steroid, started on Lantus, sliding scale, check A1C, give additional insulin as needed HTN--continue Lisinopril and Procardia HLD--statin Depression--no med Overweight: Encouraged to cut down calories and encouraged for weight loss. DVT prophylaxis: no evidence of active gi bleed, will add sub cut heparin need for inpatient copd exacerbation, hyperglycemia needing insulin adjustment Quality Stroke Does the patient have a stroke diagnosis?: No VTE Prior VTE?: No VTE Risk Level:: Medical - moderate - high VTE Device Contraindication: N/A - Device Ordered VTE Drug Contraindication: N/A - Med Ordered
[2023-09-16 14:10] LABS: Anion Gap 14 (12-20); Blood Urea Nitrogen 18 mg/dL (9-16); Calcium 9.1 mg/dL (8.4-10.2); Carbon Dioxide 20 mmol/L (22-29); Chloride 107 mmol/L (96-108); Creatinine Clr Calc Pharmacy 23.5; Estimated Glomerular Filt Rate 46; Potassium 4.2 mmol/L (3.3-5.1); Sodium 137 mmol/L (135-145)
[2023-09-16 14:23] LABS: Estimated Average Glucose 200 mg/dL; Hemoglobin A1c % 8.6 % (<6.0)
[2023-09-16 14:30] LABS: Glucose Random 445 mg/dL (60-115)
[2023-09-16 15:02] LABS: Glucose, Whole Blood 301 mg/dL (60-115)
[2023-09-16 17:12] LABS: Glucose, Whole Blood 240 mg/dL (60-115)
--- NOTE | 2023-09-16 17:37 | PM.EVENT ---
Event Note Date of Service: 09/16/23 Event Note: Called by RN to review patient for episodes of retching and vomiting after dinner, similar symptoms happened after lunch Daughter at bedside inform the patient having these intermittent episodes of dysphagia has been evaluated by GI for similar symptoms in 07/2023 On examination patient awake alert talking in full sentences no respiratory distress, denies abdominal pain, denies further nausea or vomiting On examination Oral mucosa moist/small patch of discoloration hard palate, no ulceration, no abnormal mass midline uvula. Lungs clear to auscultation Abdomen-benign Assessment and plan Dysphagia due to recurrent episode of retching and vomiting will make her NPO/continue IV Protonix/DC Lantus place on insulin sliding scale q.[address] Paez at a.m. for further testing Recommend to abstain from smoking. Time Spent With Patient Time: Total time managing care of this patient today ____ minutes.
[2023-09-16 20:34] LABS: Glucose, Whole Blood 175 mg/dL (60-115)
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
[2023-09-16] MEDS: Atorvastatin Calcium 40 MG TABLET PO (21:26)
[2023-09-16] MEDS: Gabapentin 100 MG CAPSULE PO (21:26)
[2023-09-16] MEDS: Melatonin 3 MG TABLET 6 MG PO (21:27)
--- NOTE | 2023-09-17 00:07 | P.CNGI_ITS ---
History of Present Illness Data of Consult Service Date: 09/16/23 Requesting physician: [facility] Primary Care Provider: EFE Cunningham HPI Reason for consult: choking 77 y/o f with Pmhx COPD, GERD, hypertension, alcohol use disorder, depression, diabetes mellitus, hyperlipidemia who I am seeing for assessment of choking PAtient says she has been having intermittent issues with swallowing and choking on food, usu solids. HSe is also edentulous and says she does not use dentures as they are ill fitting. She also notes cough and sputum, without fever but note some recent chills. She has regrug and reflux sx -she denies chest pain to me. no abdominal pain, is prone to constipation, no diarrhea or rectal bleed, melena. She was initially treated as COPD exacerbation and GI consult place to see about in patient EGD. Review of Systems 2 Review of Systems: Constitutional : No Weight loss, No Fever, + Chills ENT/Mouth : No sore throat, No Rhinorrhea Eyes: No Swelling, No Redness Cardiovascular : No Chest Pain, + SOB, No Edema Respiratory : + Cough, + Sputum, No Wheezing Gastrointestinal : see HPI Genitourinary : NO Dysuria, No Urinary Frequency, No Hematuria, No Urgency Musculoskeletal : no joint pain, No Myalgias, No Joint Swelling Skin : No Skin Lesions, No rash Neuro : No Weakness, No Numbness, No Dizziness, No Headache Psych : No Anxiety/Panic, No Depression Heme/Lymph: No Bruising, No Lymphadenopathy Endocrine : No Polyuria, No Polydipsia All other systems reviewed and are negative. [facility] Past Medical History Medical History COPD (chronic obstructive pulmonary disease) Snoring Heart burn Varicose veins of legs Asymptomatic varicose veins of both lower extremities Right anterior knee pain Bilateral knee pain HTN (hypertension) Alcoholism Depression Diabetes mellitus type 2, uncomplicated Hyperlipemia Family History Family History Father Throat cancer Sister Throat cancer Surgical History Surgical History Hx of cataract surgery History of appendectomy H/O section Social History Social History Household Members: Other Household Members Other:: daughter Housing: Apartment Do you presently have visiting nurse or other home services: Yes (daughter is [employer] ROOM [employer]OC[employer] and a nurse calls weekly) Alcohol intake: former Comment: bed alarm ok to be off when daughter in room Patient Tobacco Use Status: Former Tobacco user Tobacco use type: Cigarette Cigarettes Per Day: 10 Years Smoked: 56 Second Hand Smoke Exposure: No service: No Meds Allergies Allergy/AdvReac Type Severity Reaction Status Date / Time No Known Allergies Allergy Verified 09/15/23 05:54 [No Known Allergies*] Active Medications: Current Medications Acetaminophen (Acetaminophen 325 Mg Tablet) 650 mg PO Q6H PRN PRN Reason: Pain, Mild (Pain Scale 1-3), fever or headache Last Admin: 09/15/23 15:40 Dose: 650 mg Atorvastatin Calcium (Atorvastatin Calcium 40 Mg Tablet) 40 mg PO BEDTIME [facility] Last Admin: 09/16/23 21:26 Dose: 40 mg Calcium Carbonate (Calcium Carbonate 750 Mg Tab.Chew) 750 mg PO Q4H PRN PRN Reason: Heartburn Levalbuterol HCl 1.25 mg/ (Ipratropium [place] 0.5 mg) 0 mg INHALE RQ4H WHILE AWAKE [facility] Last Admin: 09/16/23 19:53 Dose: 1 dose Levalbuterol HCl 1.25 mg/ (Ipratropium [place] 0.5 mg) 0 mg INHALE Q3H PRN PRN Reason: sob Last Admin: 09/15/23 14:09 Dose: 1 dose Cyanocobalamin (Cyanocobalamin (Vitamin B-12) 1,000 Mcg Tablet) 1,000 mcg PO MOTH [facility] Last Admin: 09/15/23 12:56 Dose: 1,000 mcg Docusate Sodium (Docusate Sodium 100 Mg Capsule) 100 mg PO DAILY PRN PRN Reason: Constipation Empagliflozin (Empagliflozin 25 Mg Tablet) 25 mg PO DAILY [facility] Last Admin: 09/16/23 08:19 Dose: 25 mg Ferrous Sulfate (Ferrous Sulfate 324 Mg Tablet.Dr) 324 mg PO MOWEFR [facility] Last Admin: 09/15/23 12:56 Dose: 324 mg Gabapentin (Gabapentin 100 Mg Capsule) 100 mg PO BEDTIME [facility] Last Admin: 09/16/23 21:26 Dose: 100 mg Glucose (Glucose Gel 15 Gm Gel..Gram.) 15 gm PO Q15M PRN; Protocol PRN Reason: per Hypoglycemia Standing Ord. Glucose (Glucose Gel 15 Gm Gel..Gram.) 15 gm PO Q15M PRN; Protocol PRN Reason: per Hypoglycemia Standing Ord. Guaifenesin (Guaifenesin 200 Mg/10 Ml 10 Ml Liquid) 10 ml PO Q6H PRN PRN Reason: Cough Last Admin: 09/16/23 06:00 Dose: 10 ml Ceftriaxone Sodium 1 gm/ (Sodium Chloride) 50 mls @ 100 mls/hr IV Q24H [facility] Last Infusion: 09/16/23 08:50 Dose: Infused Dextrose (D10) 250 mls @ 750 mls/hr IV Q15M PRN; Protocol PRN Reason: per Hypoglycemia Standing Ord. Sodium Chloride (Ns) 1,000 mls @ 100 mls/hr IVCONT .Q10H [facility] Last Admin: 09/16/23 23:36 Dose: 100 mls/hr Dextrose (D10) 250 mls @ 750 mls/hr IV Q15M PRN; Protocol PRN Reason: per Hypoglycemia Standing Ord. Insulin Human Lispro (Insulin Lispro 100 Unit/Ml 3 Ml Vial) 0 unit SUBCUT Q6H [facility]; Protocol Last Admin: 09/16/23 20:35 Dose: Not Given Lisinopril (Lisinopril 40 Mg Tablet) 40 mg PO DAILY [facility]; Protocol Last Admin: 09/16/23 08:19 Dose: 40 mg Loratadine (Loratadine 10 Mg Tablet) 10 mg PO DAILY [facility] Last Admin: 09/16/23 08:19 Dose: 10 mg Magnesium Hydroxide (Milk Of Magnesia 30 Ml Oral.Susp) 30 ml PO DAILY PRN PRN Reason: Constipation Melatonin (Melatonin 3 Mg Tablet) 6 mg PO BEDTIME PRN PRN Reason: Insomnia Last Admin: 09/16/23 21:27 Dose: 6 mg Melatonin (Melatonin 3 Mg Tablet) 6 mg PO BEDTIME PRN PRN Reason: sleep Nifedipine (Nifedipine Er 30 Mg Tab.Er.24) 30 mg PO DAILY [facility]; Protocol Last Admin: 09/16/23 08:19 Dose: 30 mg Pt Own (Dulaglutide [Trulicity] 0.75 Mg/0.5 Ml Pen Injector) 0.75 mg SUBCUT MO [facility] Last Admin: 07/29/24 12:56 Dose: 0.75 mg Omeprazole (Omeprazole 20 Mg Capsule.) 20 mg PO DAILY@06 [facility] Last Admin: 09/16/23 06:00 Dose: 20 mg Pantoprazole Sodium (Pantoprazole Sodium 40 Mg/10 Ml Vial) 40 mg IVPUSH BID [facility] Last Admin: 09/16/23 21:27 Dose: 40 mg Sodium Chloride (0.9 % Sodium Chloride Flush 3 Ml Syringe) 3 ml IVFLUSH QSHIFT [facility] Last Admin: 09/16/23 23:38 Dose: 3 ml Vitamin D (Cholecalciferol (Vitamin D3) 25 Mcg Tablet) 50 mcg PO DAILY [facility] Last Admin: 09/16/23 08:19 Dose: 50 mcg Home Medications ?Medication ?Instructions ?Recorded ?Confirmed ?Last Taken ?Type pen needle, diabetic 31 gauge x #1,200 ea 03/27/21 Unknown History 07/02 (UltiCare Pen Needle) albuterol sulfate 90 mcg/actuation 1 inh inhalation Q4H PRN Shortness 07/24/23 09/15/23 Unknown History aerosol inhaler (Ventolin HFA) Of Breath Or Wheezing atorvastatin 40 mg tablet 40 mg PO BEDTIME 07/24/23 09/15/23 09/14/23 History cholecalciferol (vitamin D3) 50 50 mcg PO DAILY 07/24/23 09/15/23 09/14/23 History mcg (2,000 unit) tablet empagliflozin 25 mg tablet 25 mg PO DAILY 07/24/23 09/15/23 09/14/23 History (Jardiance) gabapentin 100 mg capsule 100 mg PO BEDTIME 07/24/23 09/15/23 09/14/23 History hydrochlorothiazide 25 mg tablet 25 mg PO DAILY 07/24/23 09/15/23 09/14/23 History lisinopril 40 mg tablet 40 mg PO DAILY 07/24/23 09/15/23 09/14/23 History metformin 1,000 mg tablet 1,000 mg PO BID 07/24/23 09/15/23 09/14/23 History nifedipine 30 mg tablet,extended 30 mg PO DAILY 07/24/23 09/15/23 09/14/23 History release 24 hr omeprazole 20 mg capsule,delayed 20 mg PO DAILY@0630 07/24/23 09/15/23 09/14/23 History release cyanocobalamin (vitamin B-12) 1,000 mcg PO MOTH 09/15/23 09/15/23 09/11/23 History 1,000 mcg tablet docusate sodium 100 mg capsule 100 mg PO DAILY PRN Constipation 09/15/23 09/15/23 Unknown History dulaglutide 0.75 mg/0.5 mL 0.75 mg subcut MO 09/15/23 09/15/23 09/08/23 History subcutaneous pen injector (Trulicity) ferrous gluconate 324 mg (37.5 mg 324 mg PO MOWEFR 09/15/23 09/15/23 09/12/23 History iron) tablet insulin glargine 100 unit/mL (3 5 unit subcut DAILY 09/15/23 09/15/23 09/14/23 History mL) subcutaneous pen (Lantus Solostar U-100 Insulin) tiotropium bromide 18 mcg capsule 1 cap inhalation DAILY 09/15/23 09/15/23 09/14/23 History with inhalation device (Spiriva with HandiHaler) umeclidinium 62.5 mcg/actuation 1 inh inhalation DAILY 09/15/23 09/15/23 09/14/23 History blister powder for inhalation (Incruse Ellipta) Physical Exam 2 Vital Signs: Vital Signs: Last Vital Signs Temp 97.6 F 09/16/23 23:25 Pulse 105 H 09/16/23 23:25 Resp 18 09/16/23 23:25 BP 117/58 L 09/16/23 23:25 Pulse Ox 94 09/16/23 23:25 O2 Del Method Room Air 09/16/23 23:25 BMI result Body Mass Index 29.8 EXAM: GENERAL: The patient is well developed and nontoxic. VITAL SIGNS:see workflow HEENT: Nonicteric sclerae, PERRLA, EOMI. Oropharynx clear. Moist mucous membranes. Conjunctivae appear well perfused. No thyroid mass. CHEST: Chest wall is nontender. HEART: Regular rate and rhythm without murmurs. LUNGS: Clear to auscultation bilaterally- reduced AE ABDOMEN: Soft, positive bowel sounds, nontender, no organomegaly.no flank tenderness SKIN: No rash, no excessive bruising, petechiae, or purpura. NEUROLOGIC: Cranial nerves II-XII intact without motor/sensory deficit. Psych: normal affect Results Labs 09/15/23 06:02 09/16/23 13:26 Labs: BMP 09/16/23 13:26 Sodium 137 Potassium 4.2 Chloride 107 Carbon Dioxide 20 L BUN 18 H Creatinine 1.14 Calcium 9.1 D Microbiology Microbiology Results: Microbiology 09/15/23 06:18 Blood - Venous Blood Culture - Preliminary No growth after 24 hours. 09/15/23 06:18 Blood - Venous Blood Culture - Preliminary No growth after 24 hours. Assessment and Plan (1) Oropharyngeal dysphagia: Status: Acute Plan 1/ patient has intermittent issues with swallowing and choking, maybe due to combo of factors, incl reflux, dentition, oral pharyngeal dysphagia, mechanical factors e.g hiatal hernia PLAN: 1/ o/p EGD but has to hold trulance for 1 wk and jardiance for 3 d per anesthesia 2/ if worsening sx in the interim then ba swallow with pill study 3/ recommended to see dentist for dentures Procedures Date of Service Date of Service: 09/17/23
[2023-09-17 00:49] LABS: Glucose, Whole Blood 171 mg/dL (60-115)
[2023-09-17] MEDS: Insulin Lispro 100 UNIT/ML 3 ML VIAL SUBCUT ×2 (00:49→16:33)
[2023-09-17 03:38] VITALS: BP 124/60; PULSE 90; RESP 18; TEMP 36.2; O2SAT 94
[2023-09-17 06:37] LABS: Glucose, Whole Blood 125 mg/dL (60-115)
[2023-09-17 07:23] VITALS: BP 131/63; PULSE 99; RESP 20; TEMP 36; O2SAT 92
[2023-09-17] MEDS: levalbuterol HCL 1.25 MG, Ipratropium Bromide 0.5 MG INHALE ×2 (07:24→11:17)
[2023-09-17 07:25] VITALS: PULSE 99; RESP 20; O2SAT 92
[2023-09-17 08:08] LABS: Glucose, Whole Blood 150 mg/dL (60-115)
--- NOTE | 2023-09-17 08:29 | MHC.SLORD ---
Speech Language Pathology Order Status: Per MD, patient is NPO for possible EGD today. No PO trials given.
[2023-09-17] MEDS: lisinopriL 40 MG TABLET PO (08:30)
[2023-09-17] MEDS: NIFEdipine ER 30 MG TAB.ER.24 PO (08:30)
[2023-09-17] MEDS: cefTRIAXone sodium 1 GM in 0.9 % Sodium Chloride 50 ML IV (08:30)
[2023-09-17] MEDS: Cholecalciferol (Vitamin D3) 25 MCG TABLET 50 MCG PO (08:30)
[2023-09-17] MEDS: Pantoprazole Sodium 40 MG/10 ML VIAL IVPUSH (08:31)
[2023-09-17] MEDS: Loratadine 10 MG TABLET PO (08:31)
[2023-09-17] MEDS: Empagliflozin 25 MG TABLET PO (08:31)
[2023-09-17] MEDS: Docusate Sodium 100 MG CAPSULE PO (08:34)
[2023-09-17] MEDS: Ferrous Sulfate 324 MG TABLET.DR PO (08:34)
--- NOTE | 2023-09-17 10:16 | HO.PM.IMPN ---
Subjective Subjective Date of Service: 09/17/23 Interval History: seen and evaluated improving COPD , on RA GLASS SCULLION following Pending EGD study today\tomorrow no other overnight event Review of Systems Review of Systems: Yes all other systems are reviewed and are negative Physical Exam Vital Signs: Vital Signs: Last Vital Signs Temp 96.8 F 09/17/23 07:23 Pulse 99 09/17/23 07:25 Resp 20 09/17/23 07:25 BP 131/63 09/17/23 07:23 Pulse Ox 92 09/17/23 07:23 O2 Del Method Room Air 09/17/23 07:23 BMI result Body Mass Index 29.8 Const: Other: Constitutional : Awake, interactive, not in distress Neck : Normal inspection, Supple Cardiovascular : RRR, no JVP, no lower extremity edema Respiratory : fair bilateral air entry, no crackles, scattered expiratory wheezes Gastrointestinal: soft, lax, Normal bowel sounds, Non tender Skin : Warm, Dry Neurological : Alert & oriented to self and place, No focal deficit Objective Data Active Medications Acetaminophen (Acetaminophen 325 Mg Tablet) 650 mg PO Q6H PRN PRN Reason: Pain, Mild (Pain Scale 1-3), fever or headache Last Admin: 09/15/23 15:40 Dose: 650 mg Documented By: EMILIANO Atorvastatin Calcium (Atorvastatin Calcium 40 Mg Tablet) 40 mg PO BEDTIME [facility] Last Admin: 09/16/23 21:26 Dose: 40 mg Documented By: LAURA Calcium Carbonate (Calcium Carbonate 750 Mg Tab.Chew) 750 mg PO Q4H PRN PRN Reason: Heartburn Levalbuterol HCl 1.25 mg/ (Ipratropium [place] 0.5 mg) 0 mg INHALE RQ4H WHILE AWAKE [facility] Last Admin: 09/17/23 07:24 Dose: 5.5 dose Documented By: OSCAR Levalbuterol HCl 1.25 mg/ (Ipratropium [place] 0.5 mg) 0 mg INHALE Q3H PRN PRN Reason: sob Last Admin: 09/15/23 14:09 Dose: 1 dose Documented By: FERMIN Cyanocobalamin (Cyanocobalamin (Vitamin B-12) 1,000 Mcg Tablet) 1,000 mcg PO MOTH [facility] Last Admin: 09/15/23 12:56 Dose: 1,000 mcg Documented By: EMILIANO Docusate Sodium (Docusate Sodium 100 Mg Capsule) 100 mg PO DAILY PRN PRN Reason: Constipation Last Admin: 09/17/23 08:34 Dose: 100 mg Documented By: GAGAN Empagliflozin (Empagliflozin 25 Mg Tablet) 25 mg PO DAILY [facility] Last Admin: 09/17/23 08:31 Dose: 25 mg Documented By: GAGAN Ferrous Sulfate (Ferrous Sulfate 324 Mg Tablet.Dr) 324 mg PO MOWEFR [facility] Last Admin: 09/17/23 08:34 Dose: 324 mg Documented By: GAGAN Gabapentin (Gabapentin 100 Mg Capsule) 100 mg PO BEDTIME [facility] Last Admin: 09/16/23 21:26 Dose: 100 mg Documented By: LAURA Glucose (Glucose Gel 15 Gm Gel..Gram.) 15 gm PO Q15M PRN; Protocol PRN Reason: per Hypoglycemia Standing Ord. Glucose (Glucose Gel 15 Gm Gel..Gram.) 15 gm PO Q15M PRN; Protocol PRN Reason: per Hypoglycemia Standing Ord. Guaifenesin (Guaifenesin 200 Mg/10 Ml 10 Ml Liquid) 10 ml PO Q6H PRN PRN Reason: Cough Last Admin: 09/16/23 06:00 Dose: 10 ml Documented By: LAURA Ceftriaxone Sodium 1 gm/ (Sodium Chloride) 50 mls @ 100 mls/hr IV Q24H [facility] Last Infusion: 09/17/23 09:01 Dose: Infused Documented By: GAGAN Dextrose (D10) 250 mls @ 750 mls/hr IV Q15M PRN; Protocol PRN Reason: per Hypoglycemia Standing Ord. Dextrose (D10) 250 mls @ 750 mls/hr IV Q15M PRN; Protocol PRN Reason: per Hypoglycemia Standing Ord. Insulin Human Lispro (Insulin Lispro 100 Unit/Ml 3 Ml Vial) 0 unit SUBCUT Q6H [facility]; Protocol Last Admin: 09/17/23 06:37 Dose: Not Given Documented By: ALMA Non-Admin Reason: See Note Lisinopril (Lisinopril 40 Mg Tablet) 40 mg PO DAILY [facility]; Protocol Last Admin: 09/17/23 08:30 Dose: 40 mg Documented By: GAGAN Loratadine (Loratadine 10 Mg Tablet) 10 mg PO DAILY [facility] Last Admin: 09/17/23 08:31 Dose: 10 mg Documented By: GAGAN Magnesium Hydroxide (Milk Of Magnesia 30 Ml Oral.Susp) 30 ml PO DAILY PRN PRN Reason: Constipation Melatonin (Melatonin 3 Mg Tablet) 6 mg PO BEDTIME PRN PRN Reason: Insomnia Last Admin: 09/16/23 21:27 Dose: 6 mg Documented By: LAURA Melatonin (Melatonin 3 Mg Tablet) 6 mg PO BEDTIME PRN PRN Reason: sleep Nifedipine (Nifedipine Er 30 Mg Tab.Er.24) 30 mg PO DAILY [facility]; Protocol Last Admin: 09/17/23 08:30 Dose: 30 mg Documented By: GAGAN Pt Own (Dulaglutide [Trulicity] 0.75 Mg/0.5 Ml Pen Injector) 0.75 mg SUBCUT MO [facility] Last Admin: 09/15/23 12:56 Dose: 0.75 mg Documented By: EMILIANO Omeprazole (Omeprazole 20 Mg Capsule.Dr) 20 mg PO DAILY@0630 [facility] Last Admin: 09/17/23 07:00 Dose: Not Given Documented By: LAURA Non-Admin Reason: Patient Asleep Pantoprazole Sodium (Pantoprazole Sodium 40 Mg/10 Ml Vial) 40 mg IVPUSH BID [facility] Last Admin: 09/17/23 08:31 Dose: 40 mg Documented By: GAGAN Sodium Chloride (0.9 % Sodium Chloride Flush 3 Ml Syringe) 3 ml IVFLUSH QSHIFT [facility] Last Admin: 09/17/23 08:30 Dose: Not Given Documented By: GAGAN Non-Admin Reason: IV Running Vitamin D (Cholecalciferol (Vitamin D3) 25 Mcg Tablet) 50 mcg PO DAILY [facility] Last Admin: 09/17/23 08:30 Dose: 50 mcg Documented By: GAGAN Labs 09/15/23 06:02 09/16/23 13:26 Labs: Laboratory Results - last 24 hr 09/16/23 09/16/23 09/16/23 06:02 11:48 13:26 Anion Gap 14 Estim Creat Clear Calc 23.5 Estimated GFR 46 POC Glucose 364 H* Random Glucose 445 H* Estimat Average Glucose 200 Hemoglobin A1c % 8.6 H Calcium 9.1 D 09/16/23 09/16/23 09/16/23 14:51 17:08 20:28 Anion Gap Estim Creat Clear Calc Estimated GFR POC Glucose 301 H 240 H 175 H Random Glucose Estimat Average Glucose Hemoglobin A1c % Calcium 09/17/23 09/17/23 09/17/23 00:46 06:30 08:04 Anion Gap Estim Creat Clear Calc Estimated GFR POC Glucose 171 H 125 H 150 H Random Glucose Estimat Average Glucose Hemoglobin A1c % Calcium Microbiology Microbiology Results: Microbiology 09/15/23 06:18 Blood Culture - Preliminary Blood - Venous No growth after 48 hours. 09/15/23 06:18 Blood Culture - Preliminary Blood - Venous No growth after 48 hours. Assessment and Plan (1) Sepsis: Status: Acute (2) Acute bronchospasm: Status: Acute (3) COPD (chronic obstructive pulmonary disease): Status: Acute (4) Oropharyngeal dysphagia: Status: Acute Plan 77 y/o f with Pmhx COPD, GERD, hypertension, alcohol use disorder, depression, diabetes mellitus, hyperlipidemia who came for evaluation of shortness of breath x1 week, worse last night. Acute COPD exacerbation w viral sepsis on admission improved, breathing comfortably on room air continue nebs avoid further steroid due to hyperglycemia, lungs clear cough meds, PRN on empirical ceftriaxone, DC as blood cx negative Swallowing problem GLASS SCULLION following omeprazole daily for silent aspiration GI rec EGD, trying to schedule it today keep npo for now Non insulin dependent diabetes with hyperglycemia.. worsened by steroid off steroid, started on Lantus, sliding scale, check A1C, give additional insulin as needed HTN--continue Lisinopril and Procardia HLD--statin Depression--no med Overweight: Encouraged to cut down calories and encouraged for weight loss. DVT prophylaxis: no evidence of active gi bleed, will add sub cut heparin need for inpatient copd exacerbation, swallowing problem pending EGD Quality Stroke Does the patient have a stroke diagnosis?: No VTE Prior VTE?: No VTE Risk Level:: Medical - moderate - high VTE Device Contraindication: N/A - Device Ordered VTE Drug Contraindication: N/A - Med Ordered
[2023-09-17 11:06] VITALS: BP 113/60; PULSE 91; RESP 20; TEMP 36.3; O2SAT 92
[2023-09-17 11:17] VITALS: PULSE 91; RESP 20; O2SAT 94
--- NOTE | 2023-09-17 12:14 | MHC.CM.PN ---
EMR reviewed and per MD rounds, pt is not medically cleared for discharge due to ongoing management of COPD exacerbation, and pending EGD today. Anticipating pt will discharge tomorrow 09/17.
[2023-09-17 14:13] LABS: Glucose, Whole Blood 191 mg/dL (60-115)
[2023-09-17 16:00] VITALS: BP 109/59; PULSE 103; RESP 18; TEMP 36.6; O2SAT 94
[2023-09-17 16:04] LABS: Glucose, Whole Blood 316 mg/dL (60-115)
--- NOTE | 2023-09-17 16:04 | P.DS_ITS ---
DS: Providers Provider Date of Service: 09/17/23 Date of admission: 09/15/23 08:42 Primary care physician: EFE Cunningham Consults: 09/15/23 16:15 Consult to Gastroenterology Routine Consulting Provider: [facility] [place] Gastroenterology Services Reason for consultation: dysphagia Has provider been notified: No DS: Diagnosis Discharge Diagnosis (1) Sepsis: Status: Acute (2) Acute bronchospasm: Status: Acute (3) COPD (chronic obstructive pulmonary disease): Status: Acute (4) Oropharyngeal dysphagia: Status: Acute DS: Summary Hospital Course Hospital Course: Admission note HPI 77 y/o f with Pmhx COPD, GERD, hypertension, alcohol use disorder, depression, diabetes mellitus, hyperlipidemia who came for evaluation of shortness of breath x1 week, worse last night. Patient has a chronic productive cough worse x 1 day.No fever but did have chills,used inhaler and nebulizer more frequently over the past week and received a nebulizer treatment with no improvement of her symptoms.in addition has cough with whitish sputum, elevated heart rate and elevated respiratory ra te, dyspneic, lung exam revealed diminished breath sounds bilaterally with diffuse wheezing and rales at the bases, has leucocytosis ,lactic acid normal,patient was given nebs,steriods-improved after 7.5 mg albuterol and 0.5 mg ipratropium nebulizer, Solu-Medrol 125 mg IV. Chest x-ray consistent with COPD changes. WBC elevated 12,500 otherwise labs unremarkable,treated with ceftriaxone and azithromycin for bronchitis. Patient denies any travel, but daughter says she also had similar symptoms? Hospital course - Acute COPD exacerbation w viral sepsis on admission. improved with treatment with steroids, nebulizers as she is breathing comfortably on room air abd able to ambulate with no reported dyspnea. Steroids had to be stopped to avoid further hyperglycemia as her lungs became clear and her blood sugar was significantly elevated and resistant to Insulin. she received 3 doses of Ceftriaxone empiraclly as well. To be discharged on cough medicine and Loratadine PRN with a plan to continue her home inhalers. - Swallowing problem reported chocking events that were evaluated by [employer]GER who recommended chopped diet as the patient does not have dentures. Seen by GI who will do an outpatient EGD as she should hold Trulicity for 1 week and Jardiance 3 day prior to procedure per anesthasia. To be followed by dr Chase as outpatient. - Non insulin dependent diabetes with hyperglycemia.. worsened by steroid but better controlled off steroid, on Lantus, sliding scale. to be discharged on her home medications. Discharge plan Chopped and soft diet Continue Omeprazole Cough medicine as needed Loratadine as needed for allergic symptoms continue home inhalors Follow with dr Chase as scheduled Before the Colonoscopy hold Jardiance for 3 days and Trulicity for 1 week (you take it as an injection once a week) Time Attestation Discharge Coordination Time (in mins): 33 Quality: Safe Use of Opioids Does Pt have an Active Cancer Diagnosis on the Problem List?: No Quality: Stroke Does the patient have a stroke diagnosis?: No Physical Exam Vital Signs: Vital Signs: Last Vital Signs Temp 97.4 F 09/17/23 11:06 Pulse 91 09/17/23 11:17 Resp 20 09/17/23 11:17 BP 113/60 09/17/23 11:06 Pulse Ox 92 09/17/23 11:06 O2 Del Method Room Air 09/17/23 11:06 BMI result Body Mass Index 29.8 Const: Other: Constitutional : Awake, interactive, not in distress Neck : Normal inspection, Supple Cardiovascular : RRR, no JVP, no lower extremity edema Respiratory : fair bilateral air entry, no crackles, no wheezes Gastrointestinal: soft, lax, Normal bowel sounds, Non tender Skin : Warm, Dry Neurological : Alert & oriented to self and place, No focal deficit DS: Data Data Completed and Pending Labs on day of discharge: Laboratory Results - last 24 hr 09/16/23 09/16/23 09/17/23 17:08 20:28 00:46 POC Glucose 240 H 175 H 171 H 09/17/23 09/17/23 09/17/23 06:30 08:04 14:07 POC Glucose 125 H 150 H 191 H 09/17/23 15:59 POC Glucose 316 H Preliminary micro results at discharge 09/15/23 06:18 Blood Culture - Preliminary Blood - Venous No growth after 48 hours. 09/15/23 06:18 Blood Culture - Preliminary Blood - Venous No growth after 48 hours. Imaging Chest x-ray: Radiologist's impression: ITS Impressions Chest X-Ray 09/15/23 06:34 IMPRESSION: No radiographic evidence of pneumonia or overt pulmonary edema. Probable mild bronchial thickening. Discharge Plan Discharge Anticipated Discharge Date/Time: 09/17/23 15:55 Patient Disposition: Home Health Service Discharge Diagnosis: COPD exacerbation Swallowing problem Referrals: Socorro Wilhelm FNP [Primary Care Provider] - 1 Week Discharge Medications: New guaifenesin 100 mg/5 mL Liquid 200 mg PO Q6H PRN (Reason: Cough) Qty: 473 0RF loratadine 10 mg Tablet 10 mg PO DAILY PRN (Reason: Allergic Symptoms) Qty: 15 0RF Continued melatonin 3 mg capsule 6 mg PO BEDTIME PRN (Reason: sleep) Qty: 10 0RF cyanocobalamin (vitamin B-12) 1,000 mcg tablet 1,000 mcg PO MOTH tiotropium bromide [Spiriva with HandiHaler] 18 mcg capsule, w/inhalation device 1 cap inhalation DAILY insulin glargine [Lantus Solostar U-100 Insulin] 100 unit/mL (3 mL) insulin pen 5 unit subcut DAILY ferrous gluconate 324 mg (37.5 mg iron) tablet 324 mg PO MOWEFR Trulicity 0.75 mg/0.5 mL pen injector 0.75 mg subcut MO Incruse Ellipta 62.5 mcg/actuation blister with device 1 inh inhalation DAILY docusate sodium 100 mg Capsule 100 mg PO DAILY PRN (Reason: Constipation) (DME) pen needle, diabetic [UltiCare Pen Needle] 31 gauge x 5/16 needle See Rx Instructions .ROUTE .MEDSUPPLY Qty: 1200 Rx Instructions: As directed atorvastatin 40 mg tablet 40 mg PO BEDTIME hydrochlorothiazide 25 mg tablet 25 mg PO DAILY metformin 1,000 mg tablet 1,000 mg PO BID omeprazole 20 mg capsule,delayed release(DR/EC) 20 mg PO DAILY@0630 cholecalciferol (vitamin D3) 50 mcg (2,000 unit) tablet 50 mcg PO DAILY albuterol sulfate [Ventolin HFA] 90 mcg/actuation HFA aerosol inhaler 1 inh inhalation Q4H PRN (Reason: Shortness Of Breath Or Wheezing) Jardiance 25 mg tablet 25 mg PO DAILY lisinopril 40 mg tablet 40 mg PO DAILY gabapentin 100 mg capsule 100 mg PO BEDTIME nifedipine 30 mg tablet extended release 24hr 30 mg PO DAILY Discharge Orders: Discharge Order (Routine); Ordered 09/17/23 Ordered By: Khaled Abuhashmeh Diet: chopped food and thin Activity on Discharge: As tolerated Stand Alone Forms: Patient Portal Discharge page Print Language: Citizen Of [place] Care Plan Goals: Chopped and soft diet Continue Omeprazole Cough medicine as needed Loratadine as needed for allergic symptoms continue home inhalors Follow with dr Chase as scheduled Before the Colonoscopy hold Jardiance for 3 days and Trulicity for 1 week (you take it as an injection once a week) Health Concerns: Read below Plan of Treatment: Read below Assessment: Read below
[2023-09-17] MEDS: 0.9 % Sodium Chloride Flush 3 ML SYRINGE IVFLUSH (16:34)
[2023-09-17] MEDS: guaiFENesin 200 MG/10 ML 10 ML LIQUID PO (17:04)
== END 2023-09-17 17:10 | disposition home health service (06) | DRG 872 ==
LOC: HO.ED 07:08 → HO.EDOVER 08:47 → HO.IMC 15:28
PROVIDERS: Internal Medicine; Admitting Provider Internal Medicine; Emergency Provider Emergency Medicine Emergency Medical Services; PCP Registered Nurse; Visit Provider Student in an Organized Health Care Education/Training Program
DX: A41.89 Other specified sepsis (principal); J44.1 Chronic obstructive pulmonary disease with (acute) exacerbation; J44.0 Chronic obstructive pulmonary disease with (acute) lower respiratory infection; E11.65 Type 2 diabetes mellitus with hyperglycemia; K21.9 Gastro-esophageal reflux disease without esophagitis; J20.9 Acute bronchitis, unspecified; I10 Essential (primary) hypertension; F32.A Depression, unspecified; E78.5 Hyperlipidemia, unspecified; R13.12 Dysphagia, oropharyngeal phase; Z20.822 Contact with and (suspected) exposure to COVID-19; Z79.4 Long term (current) use of insulin; Z79.84 Long term (current) use of oral hypoglycemic drugs; Z79.85 Long-term (current) use of injectable non-insulin antidiabetic drugs; Z79.899 Other long term (current) drug therapy
CPT/HCPCS: 0241U; 36415; 71045; 80048; 80053; 82803; 82947; 83036; 83605; 83880; 84145; 84484; 85025; 85610; 85730; 87040; 87633; 92610; 93005; 94640; 99285; J0456; J0696; J2470; J2919

== ENCOUNTER → 2023-09-15 06:03 | Outpatient (BNV) | payer OTHER, SELFPAY | PROVIDERS: Admitting Provider Internal Medicine; Emergency Provider Emergency Medicine Emergency Medical Services; Visit Provider Internal Medicine Cardiovascular Disease | DX: R94.31 Abnormal electrocardiogram [ECG] [EKG] (principal) | CPT/HCPCS: 93010 ==

== ENCOUNTER → 2023-09-15 08:42 | Outpatient (BNV) | payer OTHER, SELFPAY | PROVIDERS: Admitting Provider Internal Medicine; Emergency Provider Emergency Medicine Emergency Medical Services; PCP Registered Nurse; Visit Provider Internal Medicine Gastroenterology | DX: R13.12 Dysphagia, oropharyngeal phase (principal) | CPT/HCPCS: 99223 ==

== ENCOUNTER → 2023-09-15 08:42 | Outpatient (BNV) | payer OTHER, SELFPAY | PROVIDERS: Admitting Provider Internal Medicine; Emergency Provider Emergency Medicine Emergency Medical Services; Visit Provider Internal Medicine | DX: A41.9 Sepsis, unspecified organism (principal); J44.1 Chronic obstructive pulmonary disease with (acute) exacerbation; J98.01 Acute bronchospasm; R13.12 Dysphagia, oropharyngeal phase | CPT/HCPCS: 99222; 99232; 99239; 99499 ==

== ENCOUNTER 2023-12-04 18:55 | Outpatient (REF) | payer OTHER, SELFPAY ==
--- NOTE | ~2023-12-04 | MR_ITS ---
EXAMINATION: MR BRAIN WITHOUT CONTRAST CLINICAL INFORMATION: Amnesia. COMPARISON: None available. TECHNIQUE: MRI of the brain was obtained using routine sequences without contrast. FINDINGS: No focal restricted diffusion is demonstrated to suggest acute or subacute cerebral ischemia. No evidence of acute or chronic hemorrhagic products on heme-sensitive imaging. Chronic regions of encephalomalacia in the parasagittal aspect of the left occipital lobe, posterior left mesial temporal lobe, and medial aspect of the bilateral cerebellar hemispheres. Chronic lacunar infarcts of the bilateral cooper radiata and lentiform nuclei. Scattered and partially confluent periventricular, deep white matter, and brainstem T2 FLAIR hyperintensities consistent with moderate underlying microangiopathy. Proportional prominence of the ventricles and sulcal spaces without evidence of obstructive hydrocephalus. No abnormal mass effect. No midline shift. Normal appearance of the pituitary gland. Normal positioning of the cerebellar tonsils. Normal arterial and venous vascular flow voids are present. Normal, homogeneous marrow signal. Mild mucosal thickening of the paranasal sinuses. No signal abnormalities within the mastoids. Bilateral lens extractions. MR/MR head/brain wo con IMPRESSION: 1. No acute intracranial abnormalities. 2. Chronic regions of encephalomalacia within the left occipital lobe, posterior left mesial temporal lobe, and bilateral cerebellar hemispheres. Chronic lacunar infarcts of the deep nuclei. Moderate underlying microangiopathy and generalized cerebral volume loss. Electronically signed by: Guy Caballero DO 01/28/2024 04:34 AM MATT
== END 2023-12-04 18:56 | disposition home or self-care (01) ==
LOC: HO.MRI 18:55
PROVIDERS: PCP Registered Nurse; Visit Provider Registered Nurse
DX: R41.3 Other amnesia (principal)
CPT/HCPCS: 70551

== ENCOUNTER 2023-12-31 09:37 | Outpatient (REF) | payer OTHER, SELFPAY ==
[2023-12-31 14:40] LABS: Anion Gap 14 (12-20); Blood Urea Nitrogen 12 mg/dL (9-16); Calcium 9.5 mg/dL (8.4-10.2); Carbon Dioxide 24 mmol/L (22-29); Chloride 105 mmol/L (96-108); Estimated Glomerular Filt Rate > 60; Glucose Random 98 mg/dL (60-115); Potassium 4.1 mmol/L (3.3-5.1); Sodium 139 mmol/L (135-145)
== END 2023-12-31 09:38 | disposition home or self-care (01) ==
LOC: HO.CHCLDS 09:37
PROVIDERS: Visit Provider Registered Nurse
DX: E11.9 Type 2 diabetes mellitus without complications (principal); Z79.4 Long term (current) use of insulin
CPT/HCPCS: 36415; 80048

== ENCOUNTER 2024-02-04 11:02 | Observation (INO) | payer OTHER, SELFPAY ==
[2024-02-04] VITALS (10 sets, daily range): BP systolic 69–141; BP diastolic 51–70; PULSE 75–99; RESP 16–20; TEMP 36.9–37.2; O2SAT 96–98; BMI 32.4
--- NOTE | ~2024-02-04 | XR_ITS ---
EXAMINATION: XR RIBS, LEFT CLINICAL INFORMATION: fall COMPARISON: 09/15/2023 TECHNIQUE: 3 views of the left ribs were obtained. FINDINGS: A marker is placed over the area of concern and there is no underlying rib fracture. Lungs clear. No pneumothorax. Heart and pulmonary vessels normal. XR/XR ribs LT min 3V w CXR1V IMPRESSION: Negative study. Electronically signed by: Shay Vaughn MD 02/04/2024 03:52 PM MATT
--- NOTE | ~2024-02-04 | CT_ITS ---
EXAMINATION: CT HEAD WITHOUT CONTRAST CLINICAL INFORMATION: Fall. Head strike COMPARISON: 12/04/2023 MRI brain TECHNIQUE: Contiguous axial imaging was performed from the skull base to vertex without intravenous administration of contrast. This CT examination was performed using dose optimization techniques as appropriate, variously including the following: *Automated exposure control *Adjustment of mA and/or kV according to patient size (this includes techniques or standardized protocols for targeted exams where dose is matched to indication/reason for exam; i.e. extremities or head) *Use of iterative reconstruction technique DLP: 537.39 mGy-cm FINDINGS: There is prominence to the sulci and ventricles. Moderate deep white matter gliosis noted particularly in the right and left internal capsule. This is compatible with involutional change. There is a prominent cisterna magna. No intra or extra-axial fluid collection or hemorrhage, mass, or mass effect. Calvarium is intact. CT/CT head/brain wo IV con IMPRESSION: No acute intracranial pathology. Electronically signed by: Shay Vaughn MD 02/04/2024 02:04 PM MATT HERNANDEZ
--- NOTE | ~2024-02-04 | XR_ITS ---
EXAMINATION: XR SHOULDER, LEFT CLINICAL INFORMATION: fall COMPARISON: None available. TECHNIQUE: AP external rotation, Grashey, scapular Y, and axillary views of the left shoulder. FINDINGS: Mild degenerative change observed in the left shoulder but no fracture, dislocation or destructive process. XR/XR shoulder LT min 2V IMPRESSION: No fracture seen. Electronically signed by: Shay Vaughn MD 02/04/2024 01:50 PM MATT
--- NOTE | ~2024-02-04 | CT_ITS ---
EXAMINATION: CT CERVICAL SPINE WITHOUT CONTRAST CLINICAL INFORMATION: Fall. Head strike COMPARISON: None available. TECHNIQUE: Thin section axial imaging with sagittal and coronal reformats. This CT examination was performed using dose optimization techniques as appropriate, variously including the following: *Automated exposure control *Adjustment of mA and/or kV according to patient size (this includes techniques or standardized protocols for targeted exams where dose is matched to indication/reason for exam; i.e. extremities or head) *Use of iterative reconstruction technique DLP: 250.79 mGy-cm FINDINGS: Minor spondylitic change in the anterior C-spine, C3-C6 but no fracture or destructive process or alignment abnormality. Prevertebral soft tissues normal. No encroachment on the spinal canal. Acetabular calcifications are seen in the right and left common carotid bulbs. CT/CT cervical spine wo IV con IMPRESSION: No acute findings. Fleischner guidelines were followed. Electronically signed by: Shay Vaughn MD 02/04/2024 04:49 PM MATT
--- NOTE | 2024-02-04 11:08 | ED.GENADULT ---
HPI - General Adult General Chief complaint: Fall Stated complaint: Fell 02/04/24 Lightheaded Dizzy Nausea Time Seen by Provider: 02/04/24 12:10 Related Data Home Medications ?Medication ?Instructions ?Recorded ?Confirmed pen needle, diabetic 31 gauge x #1,200 ea 03/27/21 5/16 (UltiCare Pen Needle) albuterol sulfate 90 mcg/actuation 1 inh inhalation Q4H PRN Shortness 07/24/23 09/15/23 aerosol inhaler (Ventolin HFA) Of Breath Or Wheezing atorvastatin 40 mg tablet 40 mg PO BEDTIME 07/24/23 09/15/23 cholecalciferol (vitamin D3) 50 50 mcg PO DAILY 07/24/23 09/15/23 mcg (2,000 unit) tablet empagliflozin 25 mg tablet 25 mg PO DAILY 07/24/23 09/15/23 (Jardiance) gabapentin 100 mg capsule 100 mg PO BEDTIME 07/24/23 09/15/23 hydrochlorothiazide 25 mg tablet 25 mg PO DAILY 07/24/23 09/15/23 lisinopril 40 mg tablet 40 mg PO DAILY 07/24/23 09/15/23 metformin 1,000 mg tablet 1,000 mg PO BID 07/24/23 09/15/23 nifedipine 30 mg tablet,extended 30 mg PO DAILY 07/24/23 09/15/23 release 24 hr omeprazole 20 mg capsule,delayed 20 mg PO DAILY@0630 07/24/23 09/15/23 release cyanocobalamin (vitamin B-12) 1,000 mcg PO MOTH 09/15/23 09/15/23 1,000 mcg tablet docusate sodium 100 mg capsule 100 mg PO DAILY PRN Constipation 09/15/23 09/15/23 dulaglutide 0.75 mg/0.5 mL 0.75 mg subcut MO 09/15/23 09/15/23 subcutaneous pen injector (Trulicity) ferrous gluconate 324 mg (37.5 mg 324 mg PO MOWEFR 09/15/23 09/15/23 iron) tablet insulin glargine 100 unit/mL (3 5 unit subcut DAILY 09/15/23 09/15/23 mL) subcutaneous pen (Lantus Solostar U-100 Insulin) tiotropium bromide 18 mcg capsule 1 cap inhalation DAILY 09/15/23 09/15/23 with inhalation device (Spiriva with HandiHaler) umeclidinium 62.5 mcg/actuation 1 inh inhalation DAILY 09/15/23 09/15/23 blister powder for inhalation (Incruse Ellipta) Previous Rx's ?Medication ?Instructions ?Recorded melatonin 3 mg capsule 6 mg (2 x 3 mg) PO BEDTIME PRN 02/15/23 sleep #10 caps guaifenesin 100 mg/5 mL oral liquid 200 mg (10 mL) PO Q6H PRN Cough 09/17/23 #473 mL loratadine 10 mg tablet 10 mg PO DAILY PRN Allergic 09/17/23 Symptoms #15 tabs Allergies Allergy/AdvReac Type Severity Reaction Status Date / Time No Known Allergies Allergy Verified 02/04/24 11:11 [No Known Allergies*] PMFSH Past Medical History Medical History Chronic lung disease COPD (chronic obstructive pulmonary disease) Oropharyngeal dysphagia COPD (chronic obstructive pulmonary disease) Snoring Heart burn Varicose veins of legs Asymptomatic varicose veins of both lower extremities Right anterior knee pain Bilateral knee pain HTN (hypertension) Alcoholism Depression Diabetes mellitus type 2, uncomplicated Hyperlipemia Surgical History Hx of cataract surgery History of appendectomy H/O section Family History Family History Father Throat cancer Sister Throat cancer Social History Social History Household Members: Other Household Members Other:: daughter Housing: Apartment Do you presently have visiting nurse or other home services: Yes (daughter is FAMILY [employer] CONSUM[employer] SCIENCE PROFESSOR and a nurse calls weekly) Alcohol intake: former Comment: bed alarm ok to be off when daughter in room Patient Tobacco Use Status: Former Tobacco user Tobacco use type: Cigarette Cigarettes Per Day: 10 Years Smoked: 56 Smoked in Last 30 Days: Yes Second Hand Smoke Exposure: No Use of substances other than those prescribed or required for medical reasons: No Advance Directives: No Advance Directives Information Provided: Yes Do you have a plan to hurt others: No Plan service: No Physical Exam ED Vital Signs: Vital Signs - 24 hr 02/04/24 11:07 02/04/24 11:59 12/18/24 12:08 Temperature 98.6 F 98.5 F Pulse Rate 95 86 89 Respiratory Rate 16 18 Blood Pressure 110/51 L 125/62 116/56 L Pulse Oximetry 98 97 Oxygen Delivery Method Room Air Room Air 02/04/24 12:09 02/04/24 12:20 02/04/24 12:21 Temperature Pulse Rate 96 92 87 Respiratory Rate Blood Pressure 69/51 L 131/64 122/70 Pulse Oximetry Oxygen Delivery Method 02/04/24 15:22 Temperature Pulse Rate 75 Respiratory Rate 18 Blood Pressure 132/60 Pulse Oximetry 97 Oxygen Delivery Method Room Air BMI result Body Mass Index 32.4 Course Course Course Narrative: RME, this is a rapid medical exam performed by Jason Eisenberg please refer to primary provider for complete H&P- 78 year old female with history of diabetes, hypertension, hyperlipidemia, asthma presents for evaluation after a fall. The patient's daughter was in the other room heard some banging and then a loud thud. She found the patient in the doorway with vomit on the ground and she was unresponsive for a few minutes. The patient eventually came to and now seems back to her baseline. She struck the left side of her head, she complains of left shoulder and left-sided chest pain. Plan for syncope workup with EKG, labs including troponin, x-ray of the ribs and left shoulder, CT scan of the brain and cervical spine. Current NIH stroke score is 0 Medical Decision Making Lab Data 02/04/24 11:23 02/04/24 11:23 Labs: Lab Results 02/04/24 02/04/24 Range/Units 11:23 16:10 WBC 6.6 (4.8-10.8) X10*3/uL RBC 4.51 (4.20-5.50) X10*6/uL Hgb 10.5 L (12.0-16.0) g/dl Hct 34.8 L (37.0-47.0) % MCV 77.2 L (80.0-98.0) fL MCH 23.3 L (27.0-33.0) pg MCHC 30.2 L (31.0-35.0) g/dl RDW 16.6 H (11.0-16.0) % Plt Count 364 (160-400) X10*3/uL MPV 9.2 L (9.4-12.3) fL Immature Gran % (Auto) 0.3 (0.0-0.4) % Neut % (Auto) 54.7 (45-73) % Lymph % (Auto) 23.6 (20-40) % [place] % (Auto) 19.1 H (2-11) % Eos % (Auto) 0.6 (0-4) % Baso % (Auto) 1.7 (0-2) % Lymph # (Auto) 1.6 (1.2-4.9) X10*3/uL [place] # (Auto) 1.3 H (0.1-1.2) X10*3/uL Eos # (Auto) 0.0 (0.0-0.4) X10*3/uL Baso # (Auto) 0.1 (0.0-0.2) X10*3/uL Abs Immat Gran (auto) 0.02 (0.00-0.03) X10*3/uL Absolute Neuts (auto) 3.6 (2.0-8.3) x10*3/uL Absolute Nucleated RBC 0.000 (0.0-0.012) X10*3/uL Nucleated RBC % (auto) 0.0 (0.0-0.2) /100WBC PT 11.6 (10.9-12.4) SEC INR 1.0 (0.9-1.1) Sodium 138 (135-145) mmol/L Potassium 3.9 (3.3-5.1) mmol/L Chloride 105 (96-108) mmol/L Carbon Dioxide 29 (22-29) mmol/L Anion Gap 8 L (12-20) BUN 13 (9-16) mg/dL Creatinine 0.82 (0.5-1.4) mg/dL Estim Creat Clear Calc 33.7 Estimated GFR > 60 Random Glucose 195 H (60-115) mg/dL Calcium 8.5 D (8.4-10.2) mg/dL Total Bilirubin 0.2 (0.0-1.0) mg/dL AST 19 (5-31) U/L ALT 13 (0-31) U/L Alkaline Phosphatase 60 (39-117) U/L Troponin I High Sens < 2.7 (<3.5-17.0) ng/L Total Protein 6.6 (6.5-8.0) g/dL Albumin 3.6 (3.5-5.0) g/dL Lipase 11 (8-78) U/L Urine Color Yellow Urine Appearance Clear Urine pH 7.5 (5.0-9.0) Ur Specific [place] 1.025 (1.005-1.025) Urine Protein Negative (Neg-Trace) mg/dL Urine Glucose (UA) >=1000 H (Negative) mg/dL Urine Ketones Negative (Negative) mg/dL Urine Blood Negative (Negative) Urine Nitrite Negative (Negative) Ur Leukocyte Esterase Negative (Negative) Urine RBC 0-2 (0-2) /HPF Urine WBC 0-5 (0-5) /HPF Ur Squamous Epith Cells 0-2 (0-2) /HPF Urine Bacteria Trace (None Seen) Hyaline Casts 0-2 (0-2) /LPF Ethyl Alcohol < 10 mg/dL Influenza Type A (PCR) NEGATIVE (Negative) Influenza Type B (PCR) NEGATIVE (Negative) RSV RNA Qual (PCR) NEGATIVE (Negative) SARS-CoV-2 RNA (RT-PCR) NEGATIVE (Negative) Discharge Plan Discharge Clinical Impression: Syncope, Head injury Patient Disposition: Admitted As Inpatient Print Language: [place]
--- NOTE | 2024-02-04 11:13 | ECG_ITS ---
Test Reason : SYNCOPE Blood Pressure : / mmHG Vent. Rate : 091 BPM Atrial Rate : 091 BPM P-R Int : 146 ms QRS Dur : 114 ms QT Int : 416 ms P-R-T Axes : 052 -13 092 degrees QTc Int : 511 ms Normal sinus rhythm Minimal voltage criteria for LVH, may be normal variant ( Jean product ) Possible Lateral infarct (cited on or before 04-FEB-2024) Prolonged QT Abnormal ECG When compared with ECG of 15-SEP-2023 06:03, No significant change was found Referred By: Indra Eisenberg Electronically Signed By:GUCCI PETERS
[2024-02-04 11:32] LABS: MANUAL DIFF FLAG NO
[2024-02-04 11:38] LABS: Basophils Absolute Auto 0.1 X10*3/uL (0.0-0.2); Basophils Percent Auto 1.7 % (0-2); Eosinophils Percent Auto 0.6 % (0-4); Hematocrit 34.8 % (37.0-47.0); Hemoglobin 10.5 g/dl (12.0-16.0); Imm Gran Abs Auto 0.02 X10*3/uL (0.00-0.03); Imm Gran Pct Auto 0.3 % (0.0-0.4); Lymphocytes Absolute Auto 1.6 X10*3/uL (1.2-4.9); Lymphocytes Percent Auto 23.6 % (20-40); Mean Corpuscular HGB Conc 30.2 g/dl (31.0-35.0); Mean Corpuscular Hemoglobin 23.3 pg (27.0-33.0); Mean Corpuscular Volume 77.2 fL (80.0-98.0); Mean Platelet Volume 9.2 fL (9.4-12.3); Monocytes Absolute Auto 1.3 X10*3/uL (0.1-1.2); Monocytes Percent Auto 19.1 % (2-11); Neutrophils Absolute Auto 3.6 x10*3/uL (2.0-8.3); Neutrophils Percent Auto 54.7 % (45-73); Platelet Count 364 X10*3/uL (160-400); Red Blood Count 4.51 X10*6/uL (4.20-5.50); Red Cell Distribution Width 16.6 % (11.0-16.0); White Blood Count 6.6 X10*3/uL (4.8-10.8)
[2024-02-04 11:42] LABS: Prothrombin Time 11.6 SEC (10.9-12.4)
[2024-02-04 11:47] LABS: Alanine Aminotransferase 13 U/L (0-31); Albumin Level 3.6 g/dL (3.5-5.0); Alkaline Phosphatase 60 U/L (39-117); Anion Gap 8 (12-20); Aspartate Amino Transferase 19 U/L (5-31); Bilirubin Total 0.2 mg/dL (0.0-1.0); Blood Urea Nitrogen 13 mg/dL (9-16); Calcium 8.5 mg/dL (8.4-10.2); Carbon Dioxide 29 mmol/L (22-29); Chloride 105 mmol/L (96-108); Creatinine Clr Calc Pharmacy 33.7; Estimated Glomerular Filt Rate > 60; Glucose Random 195 mg/dL (60-115); Lipase 11 U/L (8-78); Potassium 3.9 mmol/L (3.3-5.1); Sodium 138 mmol/L (135-145); Total Protein 6.6 g/dL (6.5-8.0)
[2024-02-04 11:55] LABS: Troponin-I High Sensitivity < 2.7 ng/L (<3.5-17.0)
[2024-02-04 12:18] LABS: Influenza A PCR NEGATIVE (Negative); Influenza B PCR NEGATIVE (Negative); Resp Syncy Virus RNA Qual PCR NEGATIVE (Negative); SARS COV2 PCR INHOUSE NEGATIVE (Negative)
--- NOTE | 2024-02-04 12:24 | PC.NURSE ---
pt is alert and oriented, skin appropriate for ethnicity, respirations even and unlabored, according to the daughter the pt was at her baseline this morning, daughter found the pt laying on the floor after hearing a loud thud, when the daughter got to the pt at that time pt appeared to unresponsive-took the pt a few minutes to answer back to the daughter, daughter states that there was some vomit next to the pt, pt states all she remembers is getting up to take her pills and next thing she was laying on the ground with her daughter over her, pt is reporting left side pain-head/shoulder/arm/rib no deformity noticed, pt does not take blood thinners orthostic blood pressures performed pt did report having blurry vision when laying down and felt really dizzy when standing so could not preform the standing bp, significant drop in the bp but re-did the orthostaics with a better fitting bp cuff and the bp did improve but this rn did not feel comfortable doing then do to the pt's feeling dizziness
--- NOTE | 2024-02-04 12:50 | ED_ITS ---
HPI - Fall General Chief Complaint: Fall Stated Complaint: Fell 02/04/24 Lightheaded Dizzy Nausea Time Seen by Provider: 02/04/24 12:10 History of Present Illness HPI Narrative: Patient is a 78-year-old female history of diabetes. Question history of [place] when she was much younger. Presented today a down on the ground. Daughter found her unresponsive. Patient was sent to the ED for further evaluation. They found vomitus on the ground. No fever no chills. Complaining of pain to her left rib and to the left shoulder after falling. Patient denies any fever chills. Not on any blood thinners. Question head injury. Patient from home. No coughing or congestion or upper respiratory symptoms. No diaphoresis. Related Data Home Medications ?Medication ?Instructions ?Recorded ?Confirmed pen needle, diabetic 31 gauge x #1,200 ea 03/27/2107/02 (UltiCare Pen Needle) albuterol sulfate 90 mcg/actuation 1 inh inhalation Q4H PRN Shortness 07/24/23 09/15/23 aerosol inhaler (Ventolin HFA) Of Breath Or Wheezing atorvastatin 40 mg tablet 40 mg PO BEDTIME 07/24/23 09/15/23 cholecalciferol (vitamin D3) 50 50 mcg PO DAILY 07/24/23 09/15/23 mcg (2,000 unit) tablet empagliflozin 25 mg tablet 25 mg PO DAILY 07/24/23 09/15/23 (Jardiance) gabapentin 100 mg capsule 100 mg PO BEDTIME 07/24/23 09/15/23 hydrochlorothiazide 25 mg tablet 25 mg PO DAILY 07/24/23 09/15/23 lisinopril 40 mg tablet 40 mg PO DAILY 07/24/23 09/15/23 metformin 1,000 mg tablet 1,000 mg PO BID 07/24/23 09/15/23 nifedipine 30 mg tablet,extended 30 mg PO DAILY 07/24/23 09/15/23 release 24 hr omeprazole 20 mg capsule,delayed 20 mg PO DAILY@0630 07/24/23 09/15/23 release cyanocobalamin (vitamin B-12) 1,000 mcg PO MOTH 09/15/23 09/15/23 1,000 mcg tablet docusate sodium 100 mg capsule 100 mg PO DAILY PRN Constipation 09/15/23 09/15/23 dulaglutide 0.75 mg/0.5 mL 0.75 mg subcut MO 09/15/23 09/15/23 subcutaneous pen injector (Trulicity) ferrous gluconate 324 mg (37.5 mg 324 mg PO MOWEFR 09/15/23 09/15/23 iron) tablet insulin glargine 100 unit/mL (3 5 unit subcut DAILY 09/15/23 09/15/23 mL) subcutaneous pen (Lantus Solostar U-100 Insulin) tiotropium bromide 18 mcg capsule 1 cap inhalation DAILY 09/15/23 09/15/23 with inhalation device (Spiriva with HandiHaler) umeclidinium 62.5 mcg/actuation 1 inh inhalation DAILY 09/15/23 09/15/23 blister powder for inhalation (Incruse Ellipta) Previous Rx's ?Medication ?Instructions ?Recorded melatonin 3 mg capsule 6 mg (2 x 3 mg) PO BEDTIME PRN 02/15/23 sleep #10 caps guaifenesin 100 mg/5 mL oral liquid 200 mg (10 mL) PO Q6H PRN Cough 09/17/23 #473 mL loratadine 10 mg tablet 10 mg PO DAILY PRN Allergic 09/17/23 Symptoms #15 tabs Allergies Allergy/AdvReac Type Severity Reaction Status Date / Time No Known Allergies Allergy Verified 02/04/24 11:11 [No Known Allergies*] Review of Systems 2 Review of Systems: Positive fall. positive syncope Yes all other systems are reviewed and are negative PMFSH Past Medical History Attestation statement: The following information was validated with the patient. Medical History Chronic lung disease COPD (chronic obstructive pulmonary disease) Oropharyngeal dysphagia COPD (chronic obstructive pulmonary disease) Snoring Heart burn Varicose veins of legs Asymptomatic varicose veins of both lower extremities Right anterior knee pain Bilateral knee pain HTN (hypertension) Alcoholism Depression Diabetes mellitus type 2, uncomplicated Hyperlipemia Surgical History Hx of cataract surgery History of appendectomy H/O section Family History Family History Father Throat cancer Sister Throat cancer Social History Social History Household Members: Other Household Members Other:: daughter Housing: Apartment Do you presently have visiting nurse or other home services: Yes (daughter is STUDIO SALES ASSOCIATE and a nurse calls weekly) Alcohol intake: former Comment: bed alarm ok to be off when daughter in room Patient Tobacco Use Status: Former Tobacco user Tobacco use type: Cigarette Cigarettes Per Day: 10 Years Smoked: 56 Smoked in Last 30 Days: Yes Second Hand Smoke Exposure: No Use of substances other than those prescribed or required for medical reasons: No Advance Directives: No Advance Directives Information Provided: Yes Do you have a plan to hurt others: No Plan service: No Physical Exam 2 Vital Signs: Vital Signs: Last Vital Signs Temp 98.5 F 02/04/24 11:59 Pulse 75 02/04/24 15:22 Resp 18 02/04/24 15:22 BP 132/60 02/04/24 15:22 Pulse Ox 97 02/04/24 15:22 O2 Del Method Room Air 02/04/24 15:22 BMI result Body Mass Index 32.4 Appearance: Alert. Oriented X3. No acute distress. Eyes: Pupils equal, round and reactive to light. ENT: Pharynx normal. Neck: Normal inspection. Neck supple. No lymph nodes noted. No crepitus CVS: Normal heart rate and rhythm. Pulses normal. Normal S1 and S2 Respiratory: No respiratory distress. Breath sounds normal. No Wheezing. No rales Abdomen: Soft and nontender. No rigidity. No distention. good BS x4 Skin: Skin warm and dry. Normal skin color. Normal skin turgor. Extremities: No lower extremity edema. Neurovascular intact to all extremities. No Lacerations. No Rash Neuro: Oriented X 3. No motor deficit. No sensory deficit. Moving all extermities. No slurred speech Medical Decision Making Medical Decision Making MDM Narrative: Positive syncopal episode question etiology patient denies any prodrome she does have a history of diabetes history of hypertension. Having pain to her back most likely from the fall. X-rays ordered. History of hypertension. Patient is from home. My interpretation patient's EKG showed a sinus rhythm heart rate is 70 there is significant left bundle branch block which is old. there is no acute changes when compared to previous EKGs. CT scan of the head CT of the C-spine were both grossly negative for any acute evidence of bleeding no fracture no malalignment. I reviewed radiology's reading as well as interpreted the x-ray myself. Patient is white count is normal hemoglobin is 10.5 no gross anemia. Patient's electrolytes showed a glucose of 195 at that time was noted have a glucose in the 90s not caused by hypoglycemia patient's troponin was negative urine showed no signs of infection. Flu RSV was all negative. Symptomatically improved. Patient's x-ray of the shoulder x-ray of the ribs were all negative for fracture. Will admit for further evaluation. Differential Diagnosis Differential Diagnoses: The differential diagnosis associated with the presentation includes Rib fracture, syncope, head injury, C-spine inju Admission/Observation Consideration of admission/observation: Escalation of care including admission/observation considered Consult Healthcare Provider Management of the patient was discussed with: Hospitalist Lab Data MDM Lab Attestation statement: I reviewed the patient's lab results. 02/04/24 11:23 02/04/24 11:23 Labs: Lab Results 02/04/24 02/04/24 Range/Units 11:23 16:10 WBC 6.6 (4.8-10.8) X10*3/uL RBC 4.51 (4.20-5.50) X10*6/uL Hgb 10.5 L (12.0-16.0) g/dl Hct 34.8 L (37.0-47.0) % MCV 77.2 L (80.0-98.0) fL MCH 23.3 L (27.0-33.0) pg MCHC 30.2 L (31.0-35.0) g/dl RDW 16.6 H (11.0-16.0) % Plt Count 364 (160-400) X10*3/uL MPV 9.2 L (9.4-12.3) fL Immature Gran % (Auto) 0.3 (0.0-0.4) % Neut % (Auto) 54.7 (45-73) % Lymph % (Auto) 23.6 (20-40) % [place] % (Auto) 19.1 H (2-11) % Eos % (Auto) 0.6 (0-4) % Baso % (Auto) 1.7 (0-2) % Lymph # (Auto) 1.6 (1.2-4.9) X10*3/uL [place] # (Auto) 1.3 H (0.1-1.2) X10*3/uL Eos # (Auto) 0.0 (0.0-0.4) X10*3/uL Baso # (Auto) 0.1 (0.0-0.2) X10*3/uL Abs Immat Gran (auto) 0.02 (0.00-0.03) X10*3/uL Absolute Neuts (auto) 3.6 (2.0-8.3) x10*3/uL Absolute Nucleated RBC 0.000 (0.0-0.012) X10*3/uL Nucleated RBC % (auto) 0.0 (0.0-0.2) /100WBC PT 11.6 (10.9-12.4) SEC INR 1.0 (0.9-1.1) Sodium 138 (135-145) mmol/L Potassium 3.9 (3.3-5.1) mmol/L Chloride 105 (96-108) mmol/L Carbon Dioxide 29 (22-29) mmol/L Anion Gap 8 L (12-20) BUN 13 (9-16) mg/dL Creatinine 0.82 (0.5-1.4) mg/dL Estim Creat Clear Calc 33.7 Estimated GFR > 60 Random Glucose 195 H (60-115) mg/dL Calcium 8.5 D (8.4-10.2) mg/dL Total Bilirubin 0.2 (0.0-1.0) mg/dL AST 19 (5-31) U/L ALT 13 (0-31) U/L Alkaline Phosphatase 60 (39-117) U/L Troponin I High Sens < 2.7 (<3.5-17.0) ng/L Total Protein 6.6 (6.5-8.0) g/dL Albumin 3.6 (3.5-5.0) g/dL Lipase 11 (8-78) U/L Urine Color Yellow Urine Appearance Clear Urine pH 7.5 (5.0-9.0) Ur Specific [place] 1.025 (1.005-1.025) Urine Protein Negative (Neg-Trace) mg/dL Urine Glucose (UA) >=1000 H (Negative) mg/dL Urine Ketones Negative (Negative) mg/dL Urine Blood Negative (Negative) Urine Nitrite Negative (Negative) Ur Leukocyte Esterase Negative (Negative) Urine RBC 0-2 (0-2) /HPF Urine WBC 0-5 (0-5) /HPF Ur Squamous Epith Cells 0-2 (0-2) /HPF Urine Bacteria Trace (None Seen) Hyaline Casts 0-2 (0-2) /LPF Ethyl Alcohol < 10 mg/dL Influenza Type A (PCR) NEGATIVE (Negative) Influenza Type B (PCR) NEGATIVE (Negative) RSV RNA Qual (PCR) NEGATIVE (Negative) SARS-CoV-2 RNA (RT-PCR) NEGATIVE (Negative) Independent Interpretation I performed an independent interpretation of an: EKG ( My interpretation of patient's EKG showed a sinus rhythm heart rate is 90 there is a left bundle branch block. It did not meet Sgarbossa criteria) Radiology Impression Discussion of test interpretation with radiology: I have reviewed the radiologist's reading. Independent Historian Clinical information obtained from an independent historian. History obtained from or confirmed by: Other ( family) External Record Review External record reviewed: Inpatient record Chronic Conditions Patient?s care impacted by: Diabetes and Hypertension Social Determinants Patient?s care significantly limited by Social Determinants of Health including: Problems related to primary support group Discharge Plan Discharge Clinical Impression: Syncope, Head injury Patient Disposition: Admitted As Inpatient Prescriptions: No Action melatonin 3 mg capsule 6 mg PO BEDTIME PRN (Reason: sleep) Qty: 10 0RF cyanocobalamin (vitamin B-12) 1,000 mcg tablet 1,000 mcg PO MOTH tiotropium bromide [Spiriva with HandiHaler] 18 mcg capsule, w/inhalation device 1 cap inhalation DAILY insulin glargine [Lantus Solostar U-100 Insulin] 100 unit/mL (3 mL) insulin pen 5 unit subcut DAILY ferrous gluconate 324 mg (37.5 mg iron) tablet 324 mg PO MOWEFR Trulicity 0.75 mg/0.5 mL pen injector 0.75 mg subcut MO Incruse Ellipta 62.5 mcg/actuation blister with device 1 inh inhalation DAILY docusate sodium 100 mg Capsule 100 mg PO DAILY PRN (Reason: Constipation) guaifenesin 100 mg/5 mL Liquid 200 mg PO Q6H PRN (Reason: Cough) Qty: 473 0RF loratadine 10 mg Tablet 10 mg PO DAILY PRN (Reason: Allergic Symptoms) Qty: 15 0RF (DME) pen needle, diabetic [UltiCare Pen Needle] 31 gauge x 5/16 needle See Rx Instructions .ROUTE .MEDSUPPLY Qty: 1200 Rx Instructions: As directed atorvastatin 40 mg tablet 40 mg PO BEDTIME hydrochlorothiazide 25 mg tablet 25 mg PO DAILY metformin 1,000 mg tablet 1,000 mg PO BID omeprazole 20 mg capsule,delayed release(DR/EC) 20 mg PO DAILY@0630 cholecalciferol (vitamin D3) 50 mcg (2,000 unit) tablet 50 mcg PO DAILY albuterol sulfate [Ventolin HFA] 90 mcg/actuation HFA aerosol inhaler 1 inh inhalation Q4H PRN (Reason: Shortness Of Breath Or Wheezing) Jardiance 25 mg tablet 25 mg PO DAILY lisinopril 40 mg tablet 40 mg PO DAILY gabapentin 100 mg capsule 100 mg PO BEDTIME nifedipine 30 mg tablet extended release 24hr 30 mg PO DAILY Print Language: [place]
[2024-02-04 15:42] LABS: Ethanol < 10 mg/dL
[2024-02-04 16:21] LABS: Appearance Urine Clear; Color Urine Yellow; Glucose Urine UA >=1000 mg/dL (Negative); Leukocyte Esterase Urine Negative (Negative); Nitrite Urine Negative (Negative); PH 7.5 (5.0-9.0); Specific Gravity - Urine 1.025 (1.005-1.025); UMIC TRIGGER UACC YES; Urine Blood Negative (Negative); Urine Ketones Negative (Negative); Urine Protein Negative (Neg-Trace)
[2024-02-04 16:27] LABS: Bacteria Urine Trace (None Seen); Hyaline Casts Urine 0-2 /LPF (0-2); RBC Urine 0-2 /HPF (0-2); Squamous Epithelial Cell Urine 0-2 /HPF (0-2); WBC Urine 0-5 /HPF (0-5)
[2024-02-04 17:30] LABS: Magnesium 1.9 mg/dL (1.6-2.6)
--- NOTE | 2024-02-04 17:59 | PM.IMHP ---
History of Present Illness Date of Service: 02/04/24 Chief Complaint: syncope 78F PMH COPD, GERD, hypertension, depression, diabetes, hyperlipidemia, history alcohol dependence in remission, peripheral vascular disease, presented with syncope. Syncope was unwitnessed but was heard. Patient was found down on the ground unresponsive. There was vomit. Patient woke up after about 2 minutes was slightly confused. Reports feeling dizzy prior to falling. Has never had anything similar in the past. Has felt her normal self recently, no new meds. Denies urinary or stool incontinence, glucose was in the 80s which patient reports is normal for her at that time of day.. In ED trauma workup was negative. EKG showed QTC of 511, labs with mild microcytic anemia. During orthostatic testing patient got very dizzy on standing, no accurate blood pressure was able to be obtained however. Patient did not tolerate further standing testing but lying down and sitting up orthostatics were negative. Review of Systems Review of Systems: Yes all other systems are reviewed and are negative [facility] Medical History Chronic lung disease COPD (chronic obstructive pulmonary disease) Oropharyngeal dysphagia COPD (chronic obstructive pulmonary disease) Snoring Heart burn Varicose veins of legs Asymptomatic varicose veins of both lower extremities Right anterior knee pain Bilateral knee pain HTN (hypertension) Alcoholism Depression Diabetes mellitus type 2, uncomplicated Hyperlipemia Family History Father Throat cancer Sister Throat cancer Surgical History Hx of cataract surgery History of appendectomy H/O section Social History Household Members: Other Household Members Other:: daughter Housing: Apartment Do you presently have visiting nurse or other home services: Yes (daughter is [employer] HEL[employer] and a nurse calls weekly) Alcohol intake: former Comment: bed alarm ok to be off when daughter in room Patient Tobacco Use Status: Former Tobacco user Tobacco use type: Cigarette Cigarettes Per Day: 10 Years Smoked: 56 Smoked in Last 30 Days: Yes Second Hand Smoke Exposure: No Use of substances other than those prescribed or required for medical reasons: No Advance Directives: No Advance Directives Information Provided: Yes Do you have a plan to hurt others: No Plan service: No Meds Allergies Allergy/AdvReac Type Severity Reaction Status Date / Time No Known Allergies Allergy Verified 02/04/24 11:11 [No Known Allergies*] Active Medications: Current Medications Sodium Chloride (Ns) 1,000 mls @ 100 mls/hr IVCONT .Q10H KENNETH Home Medications ?Medication ?Instructions ?Recorded ?Confirmed ?Last Taken ?Type pen needle, diabetic 31 gauge x #1,200 ea 03/27/21 Unknown History 07/02 (UltiCare Pen Needle) albuterol sulfate 90 mcg/actuation 1 inh inhalation Q4H PRN Shortness 07/24/23 02/04/24 Unknown History aerosol inhaler (Ventolin HFA) Of Breath Or Wheezing atorvastatin 40 mg tablet 40 mg PO BEDTIME 07/24/23 02/04/24 02/03/24 History cholecalciferol (vitamin D3) 50 50 mcg PO DAILY 07/24/23 02/04/24 02/03/24 History mcg (2,000 unit) tablet empagliflozin 25 mg tablet 25 mg PO DAILY 07/24/23 02/04/24 02/03/24 History (Jardiance) gabapentin 100 mg capsule 100 mg PO BEDTIME 07/24/23 02/04/24 02/03/24 History metformin 1,000 mg tablet 1,000 mg PO BID 07/24/23 02/04/24 02/03/24 History omeprazole 20 mg capsule,delayed 20 mg PO DAILY@0630 07/24/23 02/04/24 02/03/24 History release ferrous gluconate 324 mg (37.5 mg 324 mg PO MOWEFR 09/15/23 02/04/24 02/02/24 History iron) tablet insulin glargine 100 unit/mL (3 25 unit subcut DAILY 09/15/23 02/04/24 02/03/24 History mL) subcutaneous pen (Lantus Solostar U-100 Insulin) albuterol sulfate 2.5 mg/3 mL 2.5 mg inhalation Q6H PRN wheezing 02/04/24 02/04/24 Unknown History (0.083 %) solution for nebulization sitagliptin phosphate 25 mg tablet 25 mg PO DAILY 02/04/24 02/04/24 02/03/24 History (Januvia) Physical Exam Vital Signs and Narrative: Vital Signs: Last Vital Signs Temp 98.4 F 02/04/24 17:24 Pulse 94 02/04/24 17:24 Resp 20 02/04/24 17:24 BP 132/66 02/04/24 17:24 Pulse Ox 96 02/04/24 17:24 O2 Del Method Room Air 02/04/24 17:24 BMI result Body Mass Index 32.4 General: AO X 3, no acute distress Resp: CTA bilateral, no accessory muscles used CVS: S1,S2,RRR GI: soft, non tender, non distended Neuro: motor grossly intact, alert Psych: appropriate affect, appropriate insight Results Labs 02/04/24 11:23 02/04/24 11:23 Labs: Laboratory Results - last 24 hr 02/04/24 02/04/24 11:23 16:10 MCV 77.2 L MCH 23.3 L MCHC 30.2 L RDW 16.6 H Plt Count 364 MPV 9.2 L Immature Gran % (Auto) 0.3 Neut % (Auto) 54.7 Lymph % (Auto) 23.6 [place] % (Auto) 19.1 H Eos % (Auto) 0.6 Baso % (Auto) 1.7 Lymph # (Auto) 1.6 [place] # (Auto) 1.3 H Eos # (Auto) 0.0 Baso # (Auto) 0.1 Abs Immat Gran (auto) 0.02 Absolute Neuts (auto) 3.6 Absolute Nucleated RBC 0.000 Nucleated RBC % (auto) 0.0 PT 11.6 INR 1.0 Anion Gap 8 L Estim Creat Clear Calc 33.7 Estimated GFR > 60 Random Glucose 195 H Calcium 8.5 D Magnesium 1.9 Total Bilirubin 0.2 AST 19 ALT 13 Alkaline Phosphatase 60 Troponin I High Sens < 2.7 Total Protein 6.6 Albumin 3.6 Lipase 11 Urine Color Yellow Urine Appearance Clear Urine pH 7.5 Ur Specific [place] 1.025 Urine Protein Negative Urine Glucose (UA) >=1000 H Urine Ketones Negative Urine Blood Negative Urine Nitrite Negative Ur Leukocyte Esterase Negative Urine RBC 0-2 Urine WBC 0-5 Ur Squamous Epith Cells 0-2 Urine Bacteria Trace Hyaline Casts 0-2 Ethyl Alcohol < 10 Influenza Type A (PCR) NEGATIVE Influenza Type B (PCR) NEGATIVE RSV RNA Qual (PCR) NEGATIVE SARS-CoV-2 RNA (RT-PCR) NEGATIVE Imaging Radiologist's Impressions: Impressions Shoulder X-Ray 02/04/24 11:13 IMPRESSION: No fracture seen. Electronically signed by: Shay Vaughn MD 02/04/2024 01:50 PM EST RP Head CT 02/04/24 11:14 IMPRESSION: No acute intracranial pathology. Electronically signed by: Shay Vaughn MD 02/04/2024 02:04 PM EST RP Cervical Spine CT 02/04/24 11:26 IMPRESSION: No acute findings. Fleischner guidelines were followed. Electronically signed by: Shay Vaughn MD 02/04/2024 04:49 PM EST RP Ribs X-Ray 02/04/24 11:40 IMPRESSION: Negative study. Electronically signed by: Shay Vaughn MD 02/04/2024 03:52 PM EST RP Assessment and Plan (1) Syncope: Status: Acute Plan 78F PMH COPD, GERD, hypertension, depression, diabetes, hyperlipidemia, history alcohol dependence in remission, peripheral vascular disease, presented with syncope Syncope Orthostatic versus cardiogenic Monitor on tele, cardio eval, echo Recheck orthostatics IV fluid PT Diabetes Insulin COPD Stable, albuterol prn DVT prophylaxis Lovenox DNR/DNI Quality Stroke Does the patient have a stroke diagnosis?: No VTE Prior VTE?: No VTE Risk Level:: Medical - moderate - high VTE Device Contraindication: Treatment Not Indicated VTE Drug Contraindication: N/A - Med Ordered
--- NOTE | 2024-02-04 18:38 | PHA.MEDREC ---
Addendum entered by Mauri Kramer 02/04/24 18:46: reviewed Original Note: Pharmacy Consult ? Medication Reconciliation Pharmacy has completed the medication reconciliation. Paients daughter at bedside confirmed the patients medications. The daughter claims about 2 months ago the patients doctor stopped all her high blood pressure medications and she has not taken any of them in the last 2 months. She confirmed her moms Trulicity was also stopped about [address] She confirmed her moms Lantus Solostar and confirmed shes been injecting 25 units daily. She confirmed her mom is still taking the Ferrous Gluconate tablets Mondays, Wednesdays and Fridays and confirmed she took it last Friday. She confirmed she was not able to take her medications this morning but took everything yesterday.
[2024-02-04] MEDS: 0.9 % Sodium Chloride 1,000 ML 100 ML IVCONT (18:46)
[2024-02-04 18:50] LABS: Iron 23 mcg/dL (30-160); Percent Iron Saturation 7 % (15-50); Total Iron Binding Capacity 333 mcg/dL (228-428); Unsaturated Iron Binding 310 ug/dL
[2024-02-04 19:10] LABS: Ferritin 8 ng/mL (10-250)
[2024-02-04 21:01] LABS: Glucose, Whole Blood 228 mg/dL (60-115)
[2024-02-04] MEDS: Atorvastatin Calcium 40 MG TABLET PO (21:29)
[2024-02-04] MEDS: Gabapentin 100 MG CAPSULE PO (21:29)
[2024-02-04] MEDS: Insulin Lispro 100 UNIT/ML 3 ML VIAL SUBCUT (21:29)
[2024-02-04] MEDS: 0.9 % Sodium Chloride Flush 3 ML SYRINGE IVFLUSH (21:30)
[2024-02-05] VITALS: BP 137/65; BP 138/65; PULSE 87; PULSE 98; RESP 18; TEMP 37.2; O2SAT 93
[2024-02-05 04:00] VITALS: BP 140/63; PULSE 84; RESP 18; TEMP 36.4; O2SAT 99
[2024-02-05] MEDS: 0.9 % Sodium Chloride 1,000 ML 100 ML IVCONT (05:00)
[2024-02-05] MEDS: Omeprazole 20 MG CAPSULE.DR PO (05:01)
[2024-02-05 06:49] LABS: Anion Gap 11 (12-20); Blood Urea Nitrogen 12 mg/dL (9-16); Calcium 8.2 mg/dL (8.4-10.2); Carbon Dioxide 23 mmol/L (22-29); Chloride 110 mmol/L (96-108); Creatinine Clr Calc Pharmacy 34.6; Estimated Glomerular Filt Rate > 60; Glucose Random 217 mg/dL (60-115); Potassium 4.2 mmol/L (3.3-5.1); Sodium 140 mmol/L (135-145)
--- NOTE | 2024-02-05 07:00 | CA_ITS ---
Transthoracic Echocardiogram Patient (Last, First, Middle): Sara Tripathi, Gender: Female Date of : 1945 Age: 78 Procedure Date: 02/05/2024 Procedure Type: Transthoracic Echocardiogram Location: [facility] [place] Height: 129.54 cm Weight: 54.43 kg BSA: 1.34 m2 Heart Rate: bpm BP: 132 / 60 mmHg Hand Cutter: ERASMO Referring MD: David Crane MD Symptoms: syncope Study Quality: Fair, contrast ECG Rhythm: Sinus Conclusions: - The left ventricular systolic function is hyperdynamic. The visually estimated ejection fraction is >70%. - There is moderate calcification of the aortic valve. - There is moderate mitral annular calcification. Findings Procedure Information Contrast agent, definity, is being given per protocol without apparent complications. Left Ventricle Normal left ventricular cavity size. There is normal left ventricular wall thickness. The left ventricular systolic function is hyperdynamic. The visually estimated ejection fraction is >70%. There is no evidence of regional wall motion abnormalities. Evidence suggests grade I (mild) diastolic dysfunction. Right Ventricle The right ventricle was not well visualized. Normal right ventricular cavity size. Atria Both atria are normal in size. Aortic Valve There is moderate calcification of the aortic valve. There is no aortic valve stenosis. There is no aortic valve regurgitation. Mitral Valve There is moderate mitral annular calcification. There is no mitral valve regurgitation. There is no mitral valve stenosis. Pulmonic Valve The pulmonic valve is likely normal. Tricuspid Valve There is trace tricuspid valve regurgitation. There is no evidence of pulmonary hypertension. Great Vessels The asc aorta is normal in size. Venous The inferior vena cava is normal in size and collapses greater than 50% with inspiration. Pericardium/Pleural There is no evidence of pericardial effusion. Prior Study Comparison No prior study available for comparison. Measurements 2D Linear Measurements IVSd: 0.86 0.6-0.9/0.6-1.0 cm LVIDd: 3.56 3.9-5.3/4.2-5.9 cm LVIDd Index: 2.66 2.4-3.2/2.2-3.1 cm/m2 LVIDs: 2.48 2.0-3.6 cm LVPWd: 0.93 0.7-1.1 cm LA Diam: 2.60 2.7-3.8/3.0-4.0 cm LAIDs Index: 1.94 1.5-2.3 cm/m2 LV Mass: 112.96 67-162/88-224 g LV Mass Index: 84.30 43-95/49-115 g/m2 LVOT Diam: 1.70 3.0+(-)1.3 cm 2D Systolic Function EF 4C: 82.00 >55% EF 2C: 84.60 >55% EF BiP: 82.70 >55% Mitral Valve MV Pk E: 1.30 MV PK A: 1.53 MV Decel Time: 290.00 E/A: 0.80 E'Lateral: 7.07 E'Medial: 5.98 E/E' Med: 21.70 E/E' Lat: 18.40 PHT: 85.00 MVA PHT: 2.59 Decel Real: 4.48 Aortic Valve AoV Pk Cisco: 1.61 AoV Mn Cisco: 1.23 AoV VTI: 0.37 AoV Pk Grad: 10.00 Aov Mn Grad: 7.00 JESI Cont.VTI: 1.54 LVOT LVOT Pk Cisco: 1.16 LVOT Mn Cisco: 0.83 LVOT VTI: 0.25 LVOT Pk Grad: 5.00 LVOT Mn Grad: 3.00 LVOT Diam: 1.70 LVOT Area: 2.27 Diastolic Function MV Pk E: 1.30 MV Pk A: 1.53 E/A: 0.80 E'Medial: 5.98 E/E' Med: 21.70 E' Laterial: 7.07 E/E' Lat: 18.40 Tricuspid Valve TR Pk Cisco: 2.46 TR Pk Grad: 24.00 RA Press: 3.00 RVSP: 27.00 Great Vessels Aorta Sinus of Valsalva: 2.50 2.0-3.5 cm Ao Asc: 2.90 2.1-3.4 cm Pulmonary Valve PV Pk Cisco: 0.98 Peak PV Grad: 4.00 Updated in Other Vendor System with Status of Final Brian Mathew MD electronically signed on 02/05/2024 11:25:06 AM with status of Final
[2024-02-05 07:03] VITALS: BP 132/60; PULSE 77; RESP 18; TEMP 37.1; O2SAT 93
[2024-02-05 07:18] LABS: Hematocrit 31.7 % (37.0-47.0); Hemoglobin 9.5 g/dl (12.0-16.0); Mean Corpuscular Hemoglobin 23.2 pg (27.0-33.0); Mean Corpuscular Volume 77.3 fL (80.0-98.0); Mean Platelet Volume 9.8 fL (9.4-12.3); Platelet Count 321 X10*3/uL (160-400); Red Cell Distribution Width 16.5 % (11.0-16.0); White Blood Count 5.4 X10*3/uL (4.8-10.8)
[2024-02-05 07:56] LABS: Glucose, Whole Blood 140 mg/dL (60-115)
[2024-02-05 08:00] VITALS: BP 159/71; PULSE 78
[2024-02-05 08:15] VITALS: BP 135/63; BP 141/65; PULSE 76; PULSE 85
--- NOTE | 2024-02-05 08:46 | MHC.CM.PN ---
CM met with Patient at bedside, with the assist of a [facility] [place] [facility] Ccnp, and addressed ADAM with her (original was given to Patient and a copy has been placed on the chart). Patient lives in an apartment with her Daughter/HCP/Anila and her adult Granddaughter and she uses a rollator to assist with mobility. Patient has a Nurse that sees her every other day but neither she nor her Daughter know if it is through a VNA or [facility]. Home/resume said services is the goal and CM has initiated and will follow for dc planning. PCP is Dr. Socorro Wilhelm and Daughter will transport to home.
[2024-02-05] MEDS: Cholecalciferol (Vitamin D3) 25 MCG TABLET 50 MCG PO (09:07)
[2024-02-05] MEDS: guaiFENesin 100 MG/5 ML 5 ML LIQUID PO ×2 (09:07→11:54)
[2024-02-05] MEDS: Insulin Glargine,Hum.rec.anlog 100 UNIT/ML 10 ML VIAL 25 UNIT SUBCUT (09:08)
[2024-02-05] MEDS: Enoxaparin Sodium 40 MG/0.4 ML SYRINGE SUBCUT (09:09)
--- NOTE | 2024-02-05 09:42 | P.CONCA_ITS ---
History of Present Illness History of Present Illness Date of Service: 02/05/24 Chief complaint: Syncope Narrative: This is a cardiology consultation regarding syncope. Per patient, patient was trying to get up from seated position and in that context, it seems that she fell down. From H&P, reported to be unresponsive and there was vomiting but patient states she was aware of the fall. Otherwise, no recent infections look COVID. No new medication changes. She does have a history of diabetes and on insulin. She also has hypertension and other comorbidities. History of alcohol excess in the past but not recently. During orthostatic testing, patient apparently got very dizzy on standing and hence no accurate pressures were obtained. Currently, she states she feels okay. She is coughing but states that she gets these symptoms during the winter months. Review of Systems 2 Review of Systems: Yes all other systems are reviewed and are negative Constitutional: Constitutional: Reports as per HPI and Reports no additional constitutional complaints Eyes: Eyes: Reports as per HPI and Denies no additional eye complaints ENT: Denies system reviewed and no additional complaints, except as documented and Reports as per HPI Cardiovascular: Cardiovascular: Reports as per HPI, Reports no additional cardiovascular complaints, Denies acrocyanosis, Denies cool extremities, Denies chest pain, Denies leg edema, Denies lightheadedness, Denies palpitations and Denies dyspnea Respiratory: Respiratory: Reports as per HPI, Denies no additional respiratory complaints and Denies dyspnea Gastrointestinal: Gastrointestinal: Reports as per HPI and Denies no additional gastrointestinal complaints Genitourinary: Genitourinary: Reports as per HPI Musculoskeletal: Musculoskeletal: Reports no additional musculoskeletal complaints and Reports as per HPI Integumentary/Breasts: Skin/Breast: Reports system reviewed and no additional complaints, except as docu Neurologic: Reports system reviewed and no additional complaints, except as documented and Reports as per HPI Psychiatric: Psychiatric: Reports no additional psychiatric complaints and Reports as per HPI Endocrine: Endocrine: Reports no additional endocrine complaints, Reports as per HPI and Denies palpitations Hematologic/Lymphatic: Hematologic/Lymphatic: Reports no additional hematologic/lymphatic complaints and Reports as per HPI Allergic/Immunologic: Allergic/Immunologic: Reports no additional allergic/immunologic complaints and Reports as per HPI [facility] Past Medical History Medical History Chronic lung disease COPD (chronic obstructive pulmonary disease) Oropharyngeal dysphagia COPD (chronic obstructive pulmonary disease) Snoring Heart burn Varicose veins of legs Asymptomatic varicose veins of both lower extremities Right anterior knee pain Bilateral knee pain HTN (hypertension) Alcoholism Depression Diabetes mellitus type 2, uncomplicated Hyperlipemia Family History Family History Father Throat cancer Sister Throat cancer Surgical History Surgical History Hx of cataract surgery History of appendectomy H/O section Social History Social History Household Members: Children Household Members Other:: daughter Housing: Apartment Do you presently have visiting nurse or other home services: Yes Alcohol intake: former Comment: bed alarm ok to be off when daughter in room Patient Tobacco Use Status: Current everyday Tobacco user Tobacco use type: Cigarette Cigarette Packs Per Day: 0.5 Cigarettes Per Day: 10.0 Years Smoked: 56 Second Hand Smoke Exposure: No service: No Meds Allergies Allergy/AdvReac Type Severity Reaction Status Date / Time No Known Allergies Allergy Verified 02/04/24 11:11 [No Known Allergies*] Active Medications: Current Medications Acetaminophen (Acetaminophen 325 Mg Tablet) 650 mg PO Q6H PRN PRN Reason: Pain, Mild (Pain Scale 1-3), fever or headache Albuterol Sulfate (Albuterol Sulfate 90 Mcg 8 Gm Inhaler) 1 puff INHALE Q4H PRN PRN Reason: Shortness Of Breath Or Wheezing Atorvastatin Calcium (Atorvastatin Calcium 40 Mg Tablet) 40 mg PO BEDTIME [facility] Last Admin: 02/04/24 21:29 Dose: 40 mg Calcium Carbonate (Calcium Carbonate 750 Mg Tab.Chew) 750 mg PO Q4H PRN PRN Reason: Heartburn Enoxaparin Sodium (Enoxaparin Sodium 40 Mg/0.4 Ml Syringe) 40 mg SUBCUT Q24H [facility] Last Admin: 02/05/24 09:09 Dose: 40 mg Gabapentin (Gabapentin 100 Mg Capsule) 100 mg PO BEDTIME [facility] Last Admin: 02/04/24 21:29 Dose: 100 mg Glucose (Glucose Gel 15 Gm Gel..Gram.) 15 gm PO Q15M PRN; Protocol PRN Reason: per Hypoglycemia Standing Ord. Guaifenesin (Guaifenesin 100 Mg/5 Ml 5 Ml Liquid) 5 ml PO Q4H PRN PRN Reason: Cough Last Admin: 02/05/24 09:07 Dose: 5 ml Sodium Chloride (Ns) 1,000 mls @ 100 mls/hr IVCONT .Q10H [facility] Last Admin: 02/05/24 05:00 Dose: 100 mls/hr Dextrose (D10) 250 mls @ 750 mls/hr IV Q15M PRN; Protocol PRN Reason: per Hypoglycemia Standing Ord. Insulin Glargine (Insulin Glargine,Hum.Rec.Anlog 100 Unit/Ml 10 Ml Vial) 25 unit SUBCUT DAILY [facility] Last Admin: 02/05/24 09:08 Dose: 25 unit Insulin Human Lispro (Insulin Lispro 100 Unit/Ml 3 Ml Vial) 0 unit SUBCUT QIDACHS [facility]; Protocol Last Admin: 02/05/24 08:20 Dose: Not Given Magnesium Hydroxide (Milk Of Magnesia 30 Ml Oral.Susp) 30 ml PO DAILY PRN PRN Reason: Constipation Melatonin (Melatonin 3 Mg Tablet) 6 mg PO BEDTIME PRN PRN Reason: Insomnia Omeprazole (Omeprazole 20 Mg Capsule.Dr) 20 mg PO DAILY@0630 [facility] Last Admin: 02/05/24 05:01 Dose: 20 mg Sodium Chloride (0.9 % Sodium Chloride Flush 3 Ml Syringe) 3 ml IVFLUSH QSHIFT [facility] Last Admin: 02/05/24 09:09 Dose: Not Given Vitamin D (Cholecalciferol (Vitamin D3) 25 Mcg Tablet) 50 mcg PO DAILY [facility] Last Admin: 02/05/24 09:07 Dose: 50 mcg Home Medications ?Medication ?Instructions ?Recorded ?Confirmed ?Last Taken ?Type pen needle, diabetic 31 gauge x #1,200 ea 03/27/21 Unknown History 07/02 (UltiCare Pen Needle) albuterol sulfate 90 mcg/actuation 1 inh inhalation Q4H PRN Shortness 07/24/23 02/04/24 Unknown History aerosol inhaler (Ventolin HFA) Of Breath Or Wheezing atorvastatin 40 mg tablet 40 mg PO BEDTIME 07/24/23 02/04/24 02/03/24 History cholecalciferol (vitamin D3) 50 50 mcg PO DAILY 07/24/23 02/04/24 02/03/24 History mcg (2,000 unit) tablet empagliflozin 25 mg tablet 25 mg PO DAILY 07/24/23 02/04/24 02/03/24 History (Jardiance) gabapentin 100 mg capsule 100 mg PO BEDTIME 07/24/23 02/04/24 02/03/24 History metformin 1,000 mg tablet 1,000 mg PO BID 07/24/23 02/04/24 02/03/24 History omeprazole 20 mg capsule,delayed 20 mg PO DAILY@0630 07/24/23 02/04/24 02/03/24 History release ferrous gluconate 324 mg (37.5 mg 324 mg PO MOWEFR 09/15/23 02/04/24 02/02/24 History iron) tablet insulin glargine 100 unit/mL (3 25 unit subcut DAILY 09/15/23 02/04/24 02/03/24 History mL) subcutaneous pen (Lantus Solostar U-100 Insulin) albuterol sulfate 2.5 mg/3 mL 2.5 mg inhalation Q6H PRN wheezing 02/04/24 02/04/24 Unknown History (0.083 %) solution for nebulization sitagliptin phosphate 25 mg tablet 25 mg PO DAILY 02/04/24 02/04/24 02/03/24 History (Januvia) Physical Exam 2 Vital Signs: Vital Signs: Last Vital Signs Temp 98.8 F 02/05/24 07:03 Pulse 85 02/05/24 08:15 Resp 18 02/05/24 07:03 BP 135/63 02/05/24 08:15 Pulse Ox 93 02/05/24 07:03 O2 Del Method Room Air 02/05/24 07:03 BMI result Body Mass Index 32.4 Const: General: comfortable and no acute distress O rientation/consciousness: patient oriented x3 HEENT: Other: Unremarkable Head: Yes normal to inspection Neck: Neck: Yes normal visual inspection Chest: Chest palpation & inspection: normal inspection of the chest Resp: Auscultation: rhonchi Cardio: Palpation: normal PMI Heart sounds: S1 normal heart sound present, S2 normal heart sound present, no gallops, no murmurs and no rubs GI: Palpation (GI): Soft to palpation Back/Spine/Pelvis: Other: unremarkable Skin: General skin exam: no rashes or lesions noted Neuro: General: patient oriented x3 Extrem: General: Yes normal to inspection Psych: Mental Status: mental status grossly normal Objective Labs and Meds 02/05/24 06:05 02/05/24 06:05 Lab results: Laboratory Results - last 24 hr 02/04/24 02/04/24 02/04/24 11:23 16:10 20:53 WBC 6.6 RBC 4.51 Hgb 10.5 L Hct 34.8 L MCV 77.2 L MCH 23.3 L MCHC 30.2 L RDW 16.6 H Plt Count 364 MPV 9.2 L Immature Gran % (Auto) 0.3 Neut % (Auto) 54.7 Lymph % (Auto) 23.6 [place] % (Auto) 19.1 H Eos % (Auto) 0.6 Baso % (Auto) 1.7 Lymph # (Auto) 1.6 [place] # (Auto) 1.3 H Eos # (Auto) 0.0 Baso # (Auto) 0.1 Abs Immat Gran (auto) 0.02 Absolute Neuts (auto) 3.6 Absolute Nucleated RBC 0.000 Nucleated RBC % (auto) 0.0 PT 11.6 INR 1.0 Sodium 138 Potassium 3.9 Chloride 105 Carbon Dioxide 29 Anion Gap 8 L BUN 13 Creatinine 0.82 Estim Creat Clear Calc 33.7 Estimated GFR > 60 POC Glucose 228 H Random Glucose 195 H Calcium 8.5 D Magnesium 1.9 Iron 23 L TIBC 333 % Saturation 7 L Unsat Iron Binding 310 Ferritin 8 L Total Bilirubin 0.2 AST 19 ALT 13 Alkaline Phosphatase 60 Troponin I High Sens < 2.7 Total Protein 6.6 Albumin 3.6 Lipase 11 Urine Color Yellow Urine Appearance Clear Urine pH 7.5 Ur Specific [place] 1.025 Urine Protein Negative Urine Glucose (UA) >=1000 H Urine Ketones Negative Urine Blood Negative Urine Nitrite Negative Ur Leukocyte Esterase Negative Urine RBC 0-2 Urine WBC 0-5 Ur Squamous Epith Cells 0-2 Urine Bacteria Trace Hyaline Casts 0-2 Ethyl Alcohol < 10 Influenza Type A (PCR) NEGATIVE Influenza Type B (PCR) NEGATIVE RSV RNA Qual (PCR) NEGATIVE SARS-CoV-2 RNA (RT-PCR) NEGATIVE 02/05/24 02/05/24 06:05 07:29 WBC 5.4 RBC 4.10 L Hgb 9.5 L Hct 31.7 L MCV 77.3 L MCH 23.2 L MCHC 30.0 L RDW 16.5 H Plt Count 321 MPV 9.8 Immature Gran % (Auto) Neut % (Auto) Lymph % (Auto) [place] % (Auto) Eos % (Auto) Baso % (Auto) Lymph # (Auto) [place] # (Auto) Eos # (Auto) Baso # (Auto) Abs Immat Gran (auto) Absolute Neuts (auto) Absolute Nucleated RBC 0.000 Nucleated RBC % (auto) 0.0 PT INR Sodium 140 Potassium 4.2 Chloride 110 H Carbon Dioxide 23 Anion Gap 11 L BUN 12 Creatinine 0.80 Estim Creat Clear Calc 34.6 Estimated GFR > 60 POC Glucose 140 H Random Glucose 217 H Calcium 8.2 L Magnesium Iron TIBC % Saturation Unsat Iron Binding Ferritin Total Bilirubin AST ALT Alkaline Phosphatase Troponin I High Sens Total Protein Albumin Lipase Urine Color Urine Appearance Urine pH Ur Specific [place] Urine Protein Urine Glucose (UA) Urine Ketones Urine Blood Urine Nitrite Ur Leukocyte Esterase Urine RBC Urine WBC Ur Squamous Epith Cells Urine Bacteria Hyaline Casts Ethyl Alcohol Influenza Type A (PCR) Influenza Type B (PCR) RSV RNA Qual (PCR) SARS-CoV-2 RNA (RT-PCR) ECG Interpretation: EKG with sinus rhythm at 91/Min; left bundle type morphology. Has been seen before. Imaging Radiologist's impression: Impressions Shoulder X-Ray 02/04/24 11:13 IMPRESSION: No fracture seen. Electronically signed by: Shay Vaughn MD 02/04/2024 01:50 PM EST RP Head CT 02/04/24 11:14 IMPRESSION: No acute intracranial pathology. Electronically signed by: Shay Vaughn MD 02/04/2024 02:04 PM EST RP Cervical Spine CT 02/04/24 11:26 IMPRESSION: No acute findings. Fleischner guidelines were followed. Electronically signed by: Shay Vaughn MD 02/04/2024 04:49 PM EST RP Ribs X-Ray 02/04/24 11:40 IMPRESSION: Negative study. Electronically signed by: Shay Vaughn MD 02/04/2024 03:52 PM EST RP Assessment and Plan (1) Syncope: Status: Acute (2) LBBB (left bundle branch block): Status: Acute Plan Syncopal episode, possibly orthostatic based on description. Unremarkable high sensitivity troponins. Telemetry is also unremarkable. Echocardiogram can be completed. Outpatient follow-up can be arranged. Procedures Date of Service Date of Service: 02/05/24
--- NOTE | 2024-02-05 09:57 | PM.DS ---
DS: Providers Provider Date of Service: 02/05/24 Date of admission: 02/04/24 17:58 Date of discharge: 02/05/24 Primary care physician: EFE Cunningham Consults: 02/04/24 17:57 Consult to Cardiology Routine Consulting Provider[place] [facility] [place] [facility] Reason for consultation: syncope, qt prolongation Has provider been notified: Yes DS: Diagnosis Discharge Diagnosis (1) Syncope: Status: Acute (2) LBBB (left bundle branch block): Status: Acute DS: Summary Hospital Course Hospital Course: inti 78F PMH COPD, GERD, hypertension, depression, diabetes, hyperlipidemia, history alcohol dependence in remission, peripheral vascular disease, presented with syncope. Syncope was unwitnessed but was heard. Patient was found down on the ground unresponsive. There was vomit. Patient woke up after about 2 minutes was slightly confused. Reports feeling dizzy prior to falling. Has never had anything similar in the past. Has felt her normal self recently, no new meds. Denies urinary or stool incontinence, glucose was in the 80s which patient reports is normal for her at that time of day.. In ED trauma workup was negative. EKG showed QTC of 511, labs with mild microcytic anemia. During orthostatic testing patient got very dizzy on standing, no accurate blood pressure was able to be obtained however. Patient did not tolerate further standing testing but lying down and sitting up orthostatics were negative. hospital course: Patient was admitted for syncope. No events on telemetry. Was seen by Cardiology who felt Likely this was orthostatic hypotension. Recommendations were hydration and orthostatic precautions. Echocardiogram was fairly normal just hyperdynamic in line with dehydration. For diabetes was continued on insulin. For COPD remained stable on albuterol p.r.n.. Patient is feeling better will be discharged home. Time Attestation Discharge Coordination Time (in mins): 33 Quality: Safe Use of Opioids Does Pt have an Active Cancer Diagnosis on the Problem List?: No Quality: Stroke Does the patient have a stroke diagnosis?: No Physical Exam Vital Signs: Vital Signs: Last Vital Signs Temp 98.8 F 02/05/24 07:03 Pulse 85 02/05/24 08:15 Resp 18 02/05/24 07:03 BP 135/63 02/05/24 08:15 Pulse Ox 93 02/05/24 07:03 O2 Del Method Room Air 02/05/24 07:03 BMI result Body Mass Index 32.4 General: AO X 3, no acute distress Resp: CTA bilateral, no accessory muscles used CVS: S1,S2,RRR GI: soft, non tender, non distended Neuro: motor grossly intact, alert Psych: appropriate affect, appropriate insight DS: Data Data Completed and Pending Labs on day of discharge: Laboratory Results - last 24 hr 02/04/24 02/04/24 02/04/24 11:23 16:10 20:53 WBC 6.6 RBC 4.51 Hgb 10.5 L Hct 34.8 L MCV 77.2 L MCH 23.3 L MCHC 30.2 L RDW 16.6 H Plt Count 364 MPV 9.2 L Immature Gran % (Auto) 0.3 Neut % (Auto) 54.7 Lymph % (Auto) 23.6 [place] % (Auto) 19.1 H Eos % (Auto) 0.6 Baso % (Auto) 1.7 Lymph # (Auto) 1.6 [place] # (Auto) 1.3 H Eos # (Auto) 0.0 Baso # (Auto) 0.1 Abs Immat Gran (auto) 0.02 Absolute Neuts (auto) 3.6 Absolute Nucleated RBC 0.000 Nucleated RBC % (auto) 0.0 PT 11.6 INR 1.0 Sodium 138 Potassium 3.9 Chloride 105 Carbon Dioxide 29 Anion Gap 8 L BUN 13 Creatinine 0.82 Estim Creat Clear Calc 33.7 Estimated GFR > 60 POC Glucose 228 H Random Glucose 195 H Calcium 8.5 D Magnesium 1.9 Iron 23 L TIBC 333 % Saturation 7 L Unsat Iron Binding 310 Ferritin 8 L Total Bilirubin 0.2 AST 19 ALT 13 Alkaline Phosphatase 60 Troponin I High Sens < 2.7 Total Protein 6.6 Albumin 3.6 Lipase 11 Urine Color Yellow Urine Appearance Clear Urine pH 7.5 Ur Specific [place] 1.025 Urine Protein Negative Urine Glucose (UA) >=1000 H Urine Ketones Negative Urine Blood Negative Urine Nitrite Negative Ur Leukocyte Esterase Negative Urine RBC 0-2 Urine WBC 0-5 Ur Squamous Epith Cells 0-2 Urine Bacteria Trace Hyaline Casts 0-2 Ethyl Alcohol < 10 Influenza Type A (PCR) NEGATIVE Influenza Type B (PCR) NEGATIVE RSV RNA Qual (PCR) NEGATIVE SARS-CoV-2 RNA (RT-PCR) NEGATIVE 02/05/24 02/05/24 06:05 07:29 WBC 5.4 RBC 4.10 L Hgb 9.5 L Hct 31.7 L MCV 77.3 L MCH 23.2 L MCHC 30.0 L RDW 16.5 H Plt Count 321 MPV 9.8 Immature Gran % (Auto) Neut % (Auto) Lymph % (Auto) [place] % (Auto) Eos % (Auto) Baso % (Auto) Lymph # (Auto) [place] # (Auto) Eos # (Auto) Baso # (Auto) Abs Immat Gran (auto) Absolute Neuts (auto) Absolute Nucleated RBC 0.000 Nucleated RBC % (auto) 0.0 PT INR Sodium 140 Potassium 4.2 Chloride 110 H Carbon Dioxide 23 Anion Gap 11 L BUN 12 Creatinine 0.80 Estim Creat Clear Calc 34.6 Estimated GFR > 60 POC Glucose 140 H Random Glucose 217 H Calcium 8.2 L Magnesium Iron TIBC % Saturation Unsat Iron Binding Ferritin Total Bilirubin AST ALT Alkaline Phosphatase Troponin I High Sens Total Protein Albumin Lipase Urine Color Urine Appearance Urine pH Ur Specific [place] Urine Protein Urine Glucose (UA) Urine Ketones Urine Blood Urine Nitrite Ur Leukocyte Esterase Urine RBC Urine WBC Ur Squamous Epith Cells Urine Bacteria Hyaline Casts Ethyl Alcohol Influenza Type A (PCR) Influenza Type B (PCR) RSV RNA Qual (PCR) SARS-CoV-2 RNA (RT-PCR) Discharge Plan Discharge Anticipated Discharge Date/Time: 02/05/24 09:55 Patient Disposition: Home, Self-Care Discharge Diagnosis: syncope Referrals: Socorro Wilhelm FNP [Primary Care Provider] - 1 Week Discharge Medications: Continued melatonin 3 mg capsule 6 mg PO BEDTIME PRN (Reason: sleep) Qty: 10 0RF insulin glargine [Lantus Solostar U-100 Insulin] 100 unit/mL (3 mL) insulin pen 25 unit subcut DAILY ferrous gluconate 324 mg (37.5 mg iron) tablet 324 mg PO MOWEFR Januvia 25 mg tablet 25 mg PO DAILY albuterol sulfate 2.5 mg /3 mL (0.083 %) solution for nebulization 2.5 mg inhalation Q6H PRN (Reason: wheezing) (DME) pen needle, diabetic [UltiCare Pen Needle] 31 gauge x 5/16 needle See Rx Instructions .ROUTE .MEDSUPPLY Qty: 1200 Rx Instructions: As directed atorvastatin 40 mg tablet 40 mg PO BEDTIME metformin 1,000 mg tablet 1,000 mg PO BID omeprazole 20 mg capsule,delayed release(DR/EC) 20 mg PO DAILY@0630 cholecalciferol (vitamin D3) 50 mcg (2,000 unit) tablet 50 mcg PO DAILY albuterol sulfate [Ventolin HFA] 90 mcg/actuation HFA aerosol inhaler 1 inh inhalation Q4H PRN (Reason: Shortness Of Breath Or Wheezing) Jardiance 25 mg tablet 25 mg PO DAILY gabapentin 100 mg capsule 100 mg PO BEDTIME Discharge Orders: Discharge Order (Routine); Ordered 02/05/24 Ordered By: David Crane Diet: Advance to usual diet Activity on Discharge: As tolerated Stand Alone Forms: Patient Portal Discharge page Print Language: Angolan Care Plan Goals: avoid syncopal episodes Health Concerns: syncope Plan of Treatment: orthostatic precautions: take time when standing up, stay hydrated, consider compression stockings, etc. Assessment: see above
--- NOTE | 2024-02-05 10:33 | MHC.CM.PN ---
PT is not recommending home PT; CM will follow.
[2024-02-05 11:02] VITALS: BP 136/58; PULSE 84; RESP 18; TEMP 36.3; O2SAT 94
--- NOTE | 2024-02-05 11:11 | MHC.CM.PN ---
Patient has been medically cleared for dc to home today, self care.
[2024-02-05 11:23] LABS: Glucose, Whole Blood 153 mg/dL (60-115)
[2024-02-05] MEDS: Insulin Lispro 100 UNIT/ML 3 ML VIAL SUBCUT (11:54)
== END 2024-02-05 12:21 | disposition home or self-care (01) ==
LOC: HO.ED 17:05 → HO.EDOVER 18:03 → HO.IMC 19:09
PROVIDERS: Physician Assistant; Admitting Provider Internal Medicine; Emergency Provider Emergency Medicine Emergency Medical Services; PCP Registered Nurse; Visit Provider Internal Medicine
DX: R55 Syncope and collapse (principal); I44.7 Left bundle-branch block, unspecified; R42 Dizziness and giddiness; S09.90XA Unspecified injury of head, initial encounter; W19.XXXA Unspecified fall, initial encounter; Y93.9 Activity, unspecified; Y92.9 Unspecified place or not applicable; Y99.9 Unspecified external cause status; I10 Essential (primary) hypertension; E11.9 Type 2 diabetes mellitus without complications; J44.9 Chronic obstructive pulmonary disease, unspecified; E78.5 Hyperlipidemia, unspecified; R11.10 Vomiting, unspecified; D50.9 Iron deficiency anemia, unspecified; Z80.8 Family history of malignant neoplasm of other organs or systems; Z79.899 Other long term (current) drug therapy; Z03.818 Encounter for observation for suspected exposure to other biological agents ruled out
CPT/HCPCS: 0241U; 36415; 70450; 71101; 72125; 73030; 80048; 80053; 80307; 81001; 82728; 82947; 83540; 83690; 83735; 84484; 85025; 85027; 85610; 93005; 93306; 96360; 96361; 96372; 97161; 99222; 99285; J1650; Q9957

== ENCOUNTER → 2024-02-04 11:13 | Outpatient (BNV) | payer OTHER, SELFPAY | PROVIDERS: Admitting Provider Internal Medicine; Emergency Provider Emergency Medicine Emergency Medical Services; PCP Registered Nurse; Visit Provider Internal Medicine | DX: R94.31 Abnormal electrocardiogram [ECG] [EKG] (principal) | CPT/HCPCS: 93010 ==

== ENCOUNTER 2024-02-04 17:58 | Outpatient (BNV) | payer OTHER, SELFPAY | END 2024-02-05 07:00 | PROVIDERS: Admitting Provider Internal Medicine; Emergency Provider Emergency Medicine Emergency Medical Services; PCP Registered Nurse; Visit Provider Internal Medicine | DX: I44.7 Left bundle-branch block, unspecified (principal) | CPT/HCPCS: 93306 ==

== ENCOUNTER → 2024-02-04 17:58 | Outpatient (BNV) | payer OTHER, SELFPAY | PROVIDERS: Admitting Provider Internal Medicine; Emergency Provider Emergency Medicine Emergency Medical Services; PCP Registered Nurse; Visit Provider Internal Medicine | DX: R55 Syncope and collapse (principal); I44.7 Left bundle-branch block, unspecified | CPT/HCPCS: 99223; 99239 ==

== ENCOUNTER → 2024-02-04 17:58 | Outpatient (BNV) | payer OTHER, SELFPAY | PROVIDERS: Admitting Provider Internal Medicine; Emergency Provider Emergency Medicine Emergency Medical Services; PCP Registered Nurse; Visit Provider Internal Medicine | DX: R55 Syncope and collapse (principal); I44.7 Left bundle-branch block, unspecified | CPT/HCPCS: 99223 ==